=== PATIENT | female | born 1975 | race Caucasian/White ===

== ENCOUNTER 2016-11-13 17:27 | Emergency (ER) | payer OTHER, MEDICAID ==
[~2016-11-13] VITALS: Ht 154.9 cm; Wt 154.2 kg
[~2016-11-13 17:27] MED LIST: AMIT PO; ASPI325T4 PO; CHOL20007 PO; INSUINJ37 SUBCUT; MELO-86 PO; METH10TA6 PO
[2016-11-13 18:03] LABS: Basophils # (auto) 0 uL; DEFINITIVE VIEW TRANSMISSION; Eosinophils # (auto) 0.3 uL; Eosinophils % (auto) 3.4 % (0.0-7.0); Hematocrit 41.3 % (36.0-46.0); Hemoglobin 12.8 g/dL (12.2-16.2); Lymphocytes # (auto) 1.7 uL; Mean Corpuscular Hemoglobin 23.2 pg (28.0-32.0); Mean Corpuscular Hgb Conc. 30.9 g/dL (32.0-36.0); Mean Corpuscular Volume 74.9 fL (80.0-100.0); Mean Platelet Volume 9.6 fL (7.4-10.4); Monocytes # (auto) 0.3 uL; Monocytes % (auto) 3.3 % (0.0-12.0); Neutrophils # (auto) 6.9 uL; Neutrophils % (auto) 75.3 % (37.0-80.0); Platelet Count (auto) 266 10^3/uL (140-450); White Blood Cell 9.2 10^3/uL (4.4-10.8)
[2016-11-13 18:05] LABS: Red Cell Distribution Width 21.3 % (11.6-16.0)
[2016-11-13 18:20] LABS: Albumin 3.4 g/dL (3.4-5.0); BUN/Creatinine Ratio 11.6; Calcium 8.2 mg/dL (8.5-10.1); Magnesium 1.9 mg/dL (1.6-2.6); Potassium 3.8 mmol/L (3.5-5.1)
[2016-11-13 18:23] LABS: Bilirubin, Total 0.3 mg/dL (0.2-1.0); Total Protein 8.7 g/dL (6.4-8.2)
[2016-11-13 18:40] LABS: Anisocytosis Moderate; Hypochromia Slight; Platelet Estimate Adequate
[2016-11-13 18:41] LABS: Stomatocytes Few
[2016-11-13] MEDS ORDERED: cloNIDine HCL 0.1 MG TAB ONE (23:51)
[2016-11-14] MEDS ORDERED: cloNIDine HCL 0.1 MG TAB PO ONE
[2016-11-14 04:20] VITALS: BP 125/88
== END 2016-11-14 04:47 | disposition home or self-care (01) ==
LOC: ER 17:33
DX: R42 Dizziness and giddiness (principal); E11.65 Type 2 diabetes mellitus with hyperglycemia; I50.9 Heart failure, unspecified; K21.9 Gastro-esophageal reflux disease without esophagitis; F41.9 Anxiety disorder, unspecified; E05.90 Thyrotoxicosis, unspecified without thyrotoxic crisis or storm; J44.9 Chronic obstructive pulmonary disease, unspecified; Z79.82 Long term (current) use of aspirin
CPT/HCPCS: 36415; 70450; 71020; 80053; 82962; 83735; 84484; 85025; 85049; 93005

== ENCOUNTER 2018-01-30 13:36 | Emergency (ER) | payer OTHER, MEDICAID ==
[~2018-01-30] VITALS: Ht 154.9 cm; Wt 152.0 kg
[~2018-01-30 13:36] MED LIST changes: -ASPI325T4 PO; +FER325T PO; +HYDR-4069 PO; +LEVO75TA6 PO; -MELO-86 PO; +MELO1TAB56 PO; -METH10TA6 PO; +NITR-52 PO; +OME20T PO
[2018-01-30 14:27] LABS: Basophils # (auto) 0 uL; Basophils % (auto) 0.4 % (0.0-2.0); Eosinophils # (auto) 0.2 uL; Mean Corpuscular Hemoglobin 24.8 pg (28.0-32.0); Monocytes # (auto) 0.5 uL
[2018-01-30 14:30] LABS: Eosinophils % (auto) 1.6 % (0.0-7.0); Hematocrit 42.1 % (36.0-46.0); Hemoglobin 13.1 g/dL (12.2-16.2); Lymphocytes % (auto) 17.3 % (10.0-50.0); Mean Corpuscular Hgb Conc. 31.2 g/dL (32.0-36.0); Mean Corpuscular Volume 79.4 fL (80.0-100.0); Monocytes % (auto) 4.2 % (0.0-12.0); Neutrophils # (auto) 8.7 uL; Neutrophils % (auto) 76.5 % (37.0-80.0); Nucleated Red Blood Cells % 0.2 %; Platelet Count (auto) 257 10^3/uL (140-450); Red Cell Distribution Width 16.5 % (11.8-14.3); White Blood Cell 11.4 10^3/uL (4.4-10.8)
[2018-01-30 14:53] LABS: Alanine Aminotransferase 34 U/L (13-56); Albumin 3.2 g/dL (3.4-5.0); Alkaline Phosphatase 106 U/L (45-117); Anion Gap 4 (5-15); Aspartate Aminotransferase 25 U/L (15-37); BUN/Creatinine Ratio 22.4; Bilirubin, Total 0.4 mg/dL (0.2-1.0); Blood Urea Nitrogen 13 mg/dL (7-18); Calcium 8.5 mg/dL (8.5-10.1); Carbon Dioxide 33 mmol/L (21-32); Chloride 102 mmol/L (98-107); GFR African American 147 mL/min; GFR Non-African American 122 mL/min; Glucose 104 mg/dL (74-106); Potassium 3.7 mmol/L (3.5-5.1); Sodium 139 mmol/L (136-145); Total Protein 8.6 g/dL (6.4-8.2)
[2018-01-30 16:00] VITALS: BP 113/71
[2018-01-30] MEDS ORDERED: NYSTATIN TOPICAL CREAM 15GM TOP ONE (16:45)
[2018-01-30] MEDS ORDERED: FLUCONAZOLE 100 MG TAB PO ONE (16:45)
[2018-01-30 19:34] LABS: Urine Bacteria NONE SEEN /hpf (None Seen); Urine Blood 2+ /uL (Negative); Urine Budding Yeast OCCASIONAL /hpf (None Seen); Urine WBC 95 /hpf (0 - 5)
== END 2018-01-30 17:15 | disposition home or self-care (01) ==
LOC: EDBD 13:36 → ER 13:36
DX: J44.9 Chronic obstructive pulmonary disease, unspecified (principal); R53.1 Weakness; N18.9 Chronic kidney disease, unspecified; E11.22 Type 2 diabetes mellitus with diabetic chronic kidney disease; K21.9 Gastro-esophageal reflux disease without esophagitis; E78.5 Hyperlipidemia, unspecified; I50.9 Heart failure, unspecified; M10.9 Gout, unspecified; E66.01 Morbid (severe) obesity due to excess calories; Z68.44 Body mass index [BMI] 60.0-69.9, adult; F17.210 Nicotine dependence, cigarettes, uncomplicated; Z86.73 Personal history of transient ischemic attack (TIA), and cerebral infarction without residual deficits; Z79.899 Other long term (current) drug therapy
CPT/HCPCS: 36415; 71046; 80053; 81001; 81025; 84484; 85025; 85379; 93005

== ENCOUNTER 2018-12-11 13:19 | Emergency (ER) | payer OTHER, MEDICAID ==
[~2018-12-11] VITALS: Ht 154.9 cm; Wt 154.2 kg
[~2018-12-11 13:19] MED LIST changes: -AMIT PO; -CHOL20007 PO; +FLUO-125 PO; -HYDR-4069 PO; +INSLISPI SC; +LEVO200T7 PO; -LEVO75TA6 PO; -MELO1TAB56 PO; -OME20T PO
[2018-12-11 16:02] VITALS: BP 119/56
[2018-12-11] MEDS ORDERED: cefTRIAXone SOD 1,000 MG VL IM ONE (16:45)
== END 2018-12-11 18:10 | disposition home or self-care (01) ==
LOC: ER 13:22
DX: L03.314 Cellulitis of groin (principal); M25.552 Pain in left hip; I11.0 Hypertensive heart disease with heart failure; I50.9 Heart failure, unspecified; E11.9 Type 2 diabetes mellitus without complications; K21.9 Gastro-esophageal reflux disease without esophagitis; E78.5 Hyperlipidemia, unspecified; Z87.891 Personal history of nicotine dependence; Z86.711 Personal history of pulmonary embolism; Z86.73 Personal history of transient ischemic attack (TIA), and cerebral infarction without residual deficits; Z86.39 Personal history of other endocrine, nutritional and metabolic disease
CPT/HCPCS: 73502; 96372; 99283; J0696

== ENCOUNTER 2018-12-20 11:42 | Inpatient (IN) | payer OTHER, MEDICAID | END 2018-12-22 10:25 | disposition home or self-care (01) | LOC: TELE-CENTR 12-21 11:03 → ER 11:42 → TELE 20:08 | DX: I11.0 Hypertensive heart disease with heart failure (principal); J18.9 Pneumonia, unspecified organism; J96.20 Acute and chronic respiratory failure, unspecified whether with hypoxia or hypercapnia; E44.1 Mild protein-calorie malnutrition; E87.1 Hypo-osmolality and hyponatremia; I50.43 Acute on chronic combined systolic (congestive) and diastolic (congestive) heart failure ==

== ENCOUNTER 2019-01-24 12:40 | Emergency (ER) | payer MEDICARE, MEDICAID ==
[~2019-01-24] VITALS: Ht 154.9 cm; Wt 151.0 kg
[~2019-01-24 12:40] MED LIST changes: +OMEP20TA PO
[2019-01-24 13:45] VITALS: BP 121/52
[2019-01-24] MEDS ORDERED: cefTRIAXone SOD 1,000 MG VL ONE (13:57)
[2019-01-24] MEDS ORDERED: methylPREDNISolone SOD SUCC 125 MG/2 ML VL IM ONE (14:00)
[2019-01-24] MEDS ORDERED: cefTRIAXone W LIDOCAINE 1 GM IM IM ONE (14:00)
== END 2019-01-24 14:56 | disposition home or self-care (01) ==
LOC: ER 13:03
DX: J03.90 Acute tonsillitis, unspecified (principal); J06.9 Acute upper respiratory infection, unspecified; E66.01 Morbid (severe) obesity due to excess calories; K21.9 Gastro-esophageal reflux disease without esophagitis; E11.9 Type 2 diabetes mellitus without complications; E78.5 Hyperlipidemia, unspecified; I10 Essential (primary) hypertension; Z86.711 Personal history of pulmonary embolism; Z68.44 Body mass index [BMI] 60.0-69.9, adult; Z86.73 Personal history of transient ischemic attack (TIA), and cerebral infarction without residual deficits; Z86.39 Personal history of other endocrine, nutritional and metabolic disease; Z87.891 Personal history of nicotine dependence; Z79.4 Long term (current) use of insulin; Z79.899 Other long term (current) drug therapy
CPT/HCPCS: 71046; 96372; 99283; J0696; J2930

== ENCOUNTER 2019-03-01 13:56 | Emergency (ER) | payer MEDICARE, MEDICAID ==
[~2019-03-01] VITALS: Ht 154.9 cm; Wt 146.5 kg
[2019-03-01 14:34] LABS: Basophils # (auto) 0.1 uL; Basophils % (auto) 0.6 % (0.0-2.0); Eosinophils # (auto) 0.1 uL; Lymphocytes # (auto) 1.6 uL; Monocytes # (auto) 0.5 uL
[2019-03-01 14:36] LABS: Eosinophils % (auto) 1.3 % (0.0-7.0); Hematocrit 38.9 % (36.0-46.0); Hemoglobin 12.8 g/dL (12.2-16.2); Lymphocytes % (auto) 14.2 % (10.0-50.0); Mean Corpuscular Hemoglobin 26.8 pg (28.0-32.0); Mean Corpuscular Hgb Conc. 32.8 g/dL (32.0-36.0); Mean Corpuscular Volume 81.7 fL (80.0-100.0); Monocytes % (auto) 4.7 % (0.0-12.0); Neutrophils # (auto) 9.2 uL; Neutrophils % (auto) 79.2 % (37.0-80.0); Platelet Count (auto) 271 10^3/uL (140-450); Red Blood Cells 4.77 10^6/uL (4.0-5.20); Red Cell Distribution Width 16.6 % (11.8-14.3); White Blood Cell 11.6 10^3/uL (4.4-10.8)
[2019-03-01 14:53] LABS: BUN/Creatinine Ratio 18.2; Calcium 8.9 mg/dL (8.5-10.1); Potassium 3.5 mmol/L (3.5-5.1)
[2019-03-01 14:56] LABS: Bilirubin, Total 0.2 mg/dL (0.2-1.0); Total Protein 8.2 g/dL (6.4-8.2)
[2019-03-01 15:17] VITALS: BP 121/66
== END 2019-03-01 16:08 | disposition home or self-care (01) ==
LOC: ER 13:56
DX: J20.9 Acute bronchitis, unspecified (principal); K21.9 Gastro-esophageal reflux disease without esophagitis; E11.9 Type 2 diabetes mellitus without complications; E78.5 Hyperlipidemia, unspecified; I10 Essential (primary) hypertension; E07.9 Disorder of thyroid, unspecified; Z86.73 Personal history of transient ischemic attack (TIA), and cerebral infarction without residual deficits; Z86.711 Personal history of pulmonary embolism
CPT/HCPCS: 36415; 71046; 80053; 84484; 85025; 93005

== ENCOUNTER 2019-08-12 11:44 | Emergency (ER) | payer MEDICARE, MEDICAID, OTHER ==
[~2019-08-12] VITALS: Ht 154.9 cm; Wt 140.2 kg
[2019-08-12] MEDS ORDERED: HYDROcodone-ACET 10/325MG TAB PO ONE (14:15)
[2019-08-12 15:41] VITALS: BP 138/74
== END 2019-08-12 16:38 | disposition home or self-care (01) ==
LOC: ER 11:44
DX: S46.912A Strain of unspecified muscle, fascia and tendon at shoulder and upper arm level, left arm, initial encounter (principal); M54.5 Low back pain; E11.9 Type 2 diabetes mellitus without complications; K21.9 Gastro-esophageal reflux disease without esophagitis; E78.5 Hyperlipidemia, unspecified; E07.9 Disorder of thyroid, unspecified; Z86.711 Personal history of pulmonary embolism; Z79.4 Long term (current) use of insulin; Z79.899 Other long term (current) drug therapy; Z86.73 Personal history of transient ischemic attack (TIA), and cerebral infarction without residual deficits; W18.39XA Other fall on same level, initial encounter; Y93.89 Activity, other specified; Y99.8 Other external cause status; Y92.89 Other specified places as the place of occurrence of the external cause
CPT/HCPCS: 73030; 93005

== ENCOUNTER 2020-02-13 12:14 | Inpatient (IN) | payer OTHER, MEDICAID ==
[~2020-02-13] VITALS: Ht 154.9 cm; Wt 148.5 kg
[2020-02-13 12:56] LABS: Basophils # (auto) 0.1 10 ^3/uL (0-0.2); Eosinophils # (auto) 0.1 10 ^3/uL (0-0.8); Hematocrit 38.7 % (36.0-46.0); Monocytes # (auto) 0.5 10 ^3/uL (0-1.3); Monocytes % (auto) 4.9 % (0.0-12.0)
[2020-02-13 12:58] LABS: Eosinophils % (auto) 1.2 % (0.0-7.0); Hemoglobin 12.7 g/dL (12.2-16.2); Lymphocytes # (auto) 1.6 10 ^3/uL (0.4-5.4); Lymphocytes % (auto) 14.4 % (10.0-50.0); Mean Corpuscular Hemoglobin 26.7 pg (28.0-32.0); Mean Corpuscular Hgb Conc. 32.9 g/dL (32.0-36.0); Mean Corpuscular Volume 81.1 fL (80.0-100.0); Neutrophils # (auto) 8.5 10 ^3/uL (1.6-8.6); Neutrophils % (auto) 78.5 % (37.0-80.0); Platelet Count (auto) 238 10^3/uL (140-450); Red Blood Cells 4.76 10^6/uL (4.0-5.20); Red Cell Distribution Width 16.1 % (11.8-14.3); White Blood Cell 10.9 10^3/uL (4.4-10.8)
[2020-02-13] MEDS ORDERED: ONDANSETRON HCL 4 MG/2 ML VIAL IV ONE (13:00)
[2020-02-13] MEDS ORDERED: ASPirin 81 mg TAB PO ONE (13:00)
[2020-02-13] MEDS ORDERED: MORPHINE SULF INJ 2 MG/ML SYRINGE 1ML IV ONE (13:00)
[2020-02-13 13:13] LABS: INR 1.01 (0.9-1.15); Partial Thromboplastin Time 27.5 sec (23.64-32.05)
[2020-02-13 13:14] LABS: Albumin 3.1 g/dL (3.4-5.0); Anion Gap 7 (5-15); Blood Urea Nitrogen 15 mg/dL (7-18); Calcium 8.4 mg/dL (8.5-10.1); Carbon Dioxide 29 mmol/L (21-32); Chloride 101 mmol/L (98-107); Glucose 144 mg/dL (74-106); Potassium 3.6 mmol/L (3.5-5.1); Sodium 137 mmol/L (136-145)
[2020-02-13 13:20] LABS: Alanine Aminotransferase 24 U/L (13-56); Alkaline Phosphatase 85 U/L (45-117); Aspartate Aminotransferase 18 U/L (15-37); BUN/Creatinine Ratio 22.7; Bilirubin, Total 0.3 mg/dL (0.2-1.0); GFR African American 126 mL/min; GFR Non-African American 104 mL/min; Total Protein 8.1 g/dL (6.4-8.2)
[2020-02-13] MEDS ORDERED: KETOROLAC TROMETH 15 mg/ml 1ML VL IV ONE (15:00)
[2020-02-13] MEDS ORDERED: KETOROLAC TROMETH 30 MG/ML 1ML VIAL ONE (16:15)
[2020-02-13 16:49] LABS: Urine Bacteria FEW /hpf (None Seen); Urine Blood 1+ /uL (Negative); Urine Mucus FEW (None Seen); Urine Specific Gravity 1.021 (1.001-1.035); Urine WBC 6 /hpf (0 - 5)
[2020-02-13] MEDS ORDERED: MORPHINE SULFATE 4 MG/ML SYR/VIAL IV PRN (17:45)
[2020-02-13] MEDS ORDERED: ONDANSETRON HCL 4 MG/2 ML VIAL IV PRN (17:45)
[2020-02-13] MEDS ORDERED: NITROGLYCERIN 0.4 MG SL TAB SL PRN ×2 (17:45)
[2020-02-13] MEDS ORDERED: LORazepam 0.5 MG TAB PO PRN (17:45)
[2020-02-13] MEDS ORDERED: cefTRIAXone 1GM/50ML D5W 50 ML IV ONE (18:00)
[2020-02-13] MEDS ORDERED: DEXTROSE (50%) 50ML SYRG IV PRN (18:00)
[2020-02-13] MEDS: SODIUM CHLORIDE 0.9% 1,000 ML IV SCH (18:17)
[2020-02-13] MEDS ORDERED: HEPARIN DRIP/D5W 100UNITS/ML 250 ML IV SCH (18:39)
[2020-02-13] MEDS ORDERED: HEPARIN SODIUM (PORCINE) 5000 UNITS/ML 1ML VIAL IV ONE ×2 (18:45→19:00)
[2020-02-13 19:32] LABS: Basophils # (auto) 0 10 ^3/uL (0-0.2); Lymphocytes # (auto) 2.1 10 ^3/uL (0.4-5.4); Neutrophils # (auto) 7.3 10 ^3/uL (1.6-8.6); Platelet Count (auto) 245 10^3/uL (140-450); White Blood Cell 10.1 10^3/uL (4.4-10.8)
[2020-02-13 19:34] LABS: Basophils % (auto) 0.5 % (0.0-2.0); Eosinophils # (auto) 0.1 10 ^3/uL (0-0.8); Eosinophils % (auto) 1.4 % (0.0-7.0); Hematocrit 38.4 % (36.0-46.0); Hemoglobin 12.2 g/dL (12.2-16.2); Lymphocytes % (auto) 20.8 % (10.0-50.0); Mean Corpuscular Hemoglobin 25.9 pg (28.0-32.0); Mean Corpuscular Hgb Conc. 31.9 g/dL (32.0-36.0); Mean Corpuscular Volume 81.3 fL (80.0-100.0); Monocytes # (auto) 0.5 10 ^3/uL (0-1.3); Monocytes % (auto) 5.2 % (0.0-12.0); Neutrophils % (auto) 72.1 % (37.0-80.0); Nucleated Red Blood Cells % 0.2 %; Red Blood Cells 4.72 10^6/uL (4.0-5.20); Red Cell Distribution Width 16.2 % (11.8-14.3)
[2020-02-13] MEDS: HEPARIN DRIP/D5W 100UNITS/ML 250 ML IV SCH (19:35)
[2020-02-13 19:48] LABS: INR 1.01 (0.9-1.15); Partial Thromboplastin Time 28.2 sec (23.64-32.05)
[2020-02-13] MEDS: InsuLIN REG 1unit/0.01ml Soln (100units/ml) SC SCH (20:00)
[2020-02-13 20:35] VITALS: BP 124/67
[2020-02-13] MEDS: FERROUS SULFATE 325 MG TAB PO SCH (21:15)
[2020-02-13] MEDS: METOPROLOL TARTRATE 25 MG TAB PO SCH (21:17)
[2020-02-13] MEDS: ACCU-CHEK COMFORT CURVE STRIP VI SCH (21:17)
[2020-02-13 22:00] VITALS: BP 124/67
[2020-02-13] MEDS ORDERED: ATORVASTATIN 20 MG TAB PO SCH (22:00)
[2020-02-13] MEDS: MORPHINE SULF INJ 2 MG/ML SYRINGE 1ML IV PRN (22:15)
[2020-02-13] MEDS ORDERED: BUPR100T14 PO (22:35)
[2020-02-13] MEDS ORDERED: ALBUAER3 IN (22:35)
[2020-02-13] MEDS: INSULIN LANTUS (GLARGINE) 1 /0.01ml (100units/ml) SC SCH (22:42)
[2020-02-13 22:45] VITALS: BP 124/67
[2020-02-14] MEDS: ACCU-CHEK COMFORT CURVE STRIP VI SCH ×6 (00:35→20:21)
[2020-02-14 01:30] LABS: INR 0.99 (0.9-1.15); Partial Thromboplastin Time 31.3 sec (23.64-32.05)
[2020-02-14] MEDS: HEPARIN DRIP/D5W 100UNITS/ML 250 ML IV SCH (01:57)
[2020-02-14] MEDS ORDERED: HEPARIN SODIUM (PORCINE) 5000 UNITS/ML 1ML VIAL IV ONE (02:00)
[2020-02-14 04:00] VITALS: BP 91/42
[2020-02-14] MEDS: InsuLIN REG 1unit/0.01ml Soln (100units/ml) SC SCH ×6 (04:00→20:00)
[2020-02-14] MEDS: INSULIN LISPRO (HUMAN) 100 UNITS/ML ML SC SCH ×4 (04:09→20:04)
[2020-02-14 05:38] LABS: Eosinophils # (auto) 0.2 10 ^3/uL (0-0.8); Monocytes # (auto) 0.5 10 ^3/uL (0-1.3); Neutrophils # (auto) 5.9 10 ^3/uL (1.6-8.6)
[2020-02-14 05:42] LABS: Basophils # (auto) 0.1 10 ^3/uL (0-0.2); Basophils % (auto) 0.7 % (0.0-2.0); Eosinophils % (auto) 2.3 % (0.0-7.0); Hematocrit 36.7 % (36.0-46.0); Hemoglobin 12.1 g/dL (12.2-16.2); Lymphocytes # (auto) 2.3 10 ^3/uL (0.4-5.4); Lymphocytes % (auto) 25.8 % (10.0-50.0); Mean Corpuscular Hemoglobin 26.9 pg (28.0-32.0); Mean Corpuscular Volume 81.5 fL (80.0-100.0); Monocytes % (auto) 5.4 % (0.0-12.0); Neutrophils % (auto) 65.8 % (37.0-80.0); Nucleated Red Blood Cells % 0.2 %; Platelet Count (auto) 229 10^3/uL (140-450); Red Cell Distribution Width 16.2 % (11.8-14.3); White Blood Cell 8.9 10^3/uL (4.4-10.8)
[2020-02-14 05:54] LABS: Albumin 2.8 g/dL (3.4-5.0); Calcium 7.8 mg/dL (8.5-10.1); Potassium 3.9 mmol/L (3.5-5.1)
[2020-02-14 05:55] LABS: % Iron Saturation 12.3 % (15-50)
[2020-02-14 06:03] LABS: BUN/Creatinine Ratio 22.5; Bilirubin, Total 0.2 mg/dL (0.2-1.0); CRP High Sensitivity 2.93 mg/dL (< 0.3); Phosphorus 3.6 mg/dL (2.5-4.90); Total Protein 7.4 g/dL (6.4-8.2)
[2020-02-14 06:05] LABS: Ferritin 16.5 ng/mL (10-322); Folate (Folic Acid) 11.27 ng/mL (5.38-24)
[2020-02-14] MEDS: SODIUM CHLORIDE 0.9% 1,000 ML IV SCH ×2 (06:07→21:49)
[2020-02-14] MEDS: LEVOTHYROXINE SODIUM 100 MCG TAB PO SCH (06:07)
[2020-02-14] MEDS: HYDROcodone-ACET 5/325MG TAB PO PRN ×3 (06:08→20:21)
[2020-02-14] MEDS: ADENOSINE 120 MG in GIVE UN-DILUTED 0 ML IV STA ×2 (08:33→10:58)
[2020-02-14 09:00] VITALS: BP 111/67
[2020-02-14] MEDS: cefTRIAXone 1GM/50ML D5W 50 ML IV SCH (09:01)
[2020-02-14 09:02] LABS: INR 1.02 (0.9-1.15); Partial Thromboplastin Time 37.8 sec (23.64-32.05)
[2020-02-14] MEDS: MORPHINE SULF INJ 2 MG/ML SYRINGE 1ML IV PRN (09:27)
[2020-02-14] MEDS ORDERED: ENOXAPARIN SOD 40 MG/0.4 ML SYRINGE SC SCH (10:00)
[2020-02-14] MEDS ORDERED: CLOPIDOGREL BISULFATE 75 MG TAB PO SCH (10:00)
[2020-02-14 13:00] VITALS: BP 107/46
[2020-02-14] MEDS: DOCUSATE SOD 100 MG CAP PO SCH (13:19)
[2020-02-14] MEDS: FERROUS SULFATE 325 MG TAB PO SCH ×2 (13:19→21:52)
[2020-02-14] MEDS: FLUoxetine HCL 20 MG CAP PO SCH (13:19)
[2020-02-14] MEDS: LISINOPRIL 5 MG TAB PO SCH (13:20)
[2020-02-14] MEDS: ASPirin 81 mg TAB PO SCH (13:20)
[2020-02-14] MEDS: METOPROLOL TARTRATE 25 MG TAB PO SCH ×2 (13:20→21:47)
[2020-02-14] MEDS ORDERED: OPTISON 3ml Vial for INJ IV ONE (14:01)
[2020-02-14] MEDS ORDERED: PERCOT PO (14:42)
[2020-02-14] MEDS ORDERED: IBUP600T27 PO (14:43)
[2020-02-14] MEDS ORDERED: OXYC325T14 PO (14:47)
[2020-02-14 17:00] VITALS: BP 124/67
[2020-02-14] MEDS: INSULIN LANTUS (GLARGINE) 1 /0.01ml (100units/ml) SC SCH (20:03)
[2020-02-14 21:47] VITALS: BP 102/45
[2020-02-15] MEDS ORDERED: DEXTROSE (50%) 50ML SYRG IV PRN (01:15)
[2020-02-15] MEDS: HYDROcodone-ACET 5/325MG TAB PO PRN (05:00)
[2020-02-15 05:14] VITALS: BP 97/44
[2020-02-15] MEDS ORDERED: ALBUTEROL SULF 2.5 MG/0.5ML(0.5%) NEB SOLN NEB PRN (05:15)
[2020-02-15] MEDS: ACCU-CHEK COMFORT CURVE STRIP VI SCH ×2 (05:38→11:43)
[2020-02-15] MEDS: cefTRIAXone 1GM/50ML D5W 50 ML IV SCH (05:58)
[2020-02-15] MEDS: LEVOTHYROXINE SODIUM 100 MCG TAB PO SCH (05:58)
[2020-02-15] MEDS: InsuLIN REG 1unit/0.01ml Soln (100units/ml) SC SCH ×2 (06:10→11:30)
[2020-02-15 09:00] VITALS: BP_SYST 121; BP_SYST 130; BP_DIAS 64; BP_DIAS 69
[2020-02-15 09:34] VITALS: BP 97/44
[2020-02-15] MEDS: ASPirin 81 mg TAB PO SCH (09:47)
[2020-02-15] MEDS: DOCUSATE SOD 100 MG CAP PO SCH (09:47)
[2020-02-15] MEDS: FERROUS SULFATE 325 MG TAB PO SCH (09:47)
[2020-02-15] MEDS: FLUoxetine HCL 20 MG CAP PO SCH (09:48)
[2020-02-15] MEDS: LISINOPRIL 5 MG TAB PO SCH (09:50)
[2020-02-15 13:01] VITALS: BP 121/77
== END 2020-02-15 14:59 | disposition home or self-care (01) | DRG 313 ==
LOC: ER 12:14 → TELE 12:15 → TELE-WESTW 20:40
PROVIDERS: ADMIT Hospitalist; ATTEND Internal Medicine
DX: R07.89 Other chest pain (principal); R65.10 Systemic inflammatory response syndrome (SIRS) of non-infectious origin without acute organ dysfunction; Z68.44 Body mass index [BMI] 60.0-69.9, adult; F32.9 Major depressive disorder, single episode, unspecified; E66.01 Morbid (severe) obesity due to excess calories; D63.8 Anemia in other chronic diseases classified elsewhere; K21.9 Gastro-esophageal reflux disease without esophagitis; E03.9 Hypothyroidism, unspecified; I27.20 Pulmonary hypertension, unspecified; M19.90 Unspecified osteoarthritis, unspecified site; M10.9 Gout, unspecified; G47.30 Sleep apnea, unspecified; E11.65 Type 2 diabetes mellitus with hyperglycemia; D72.829 Elevated white blood cell count, unspecified; N18.9 Chronic kidney disease, unspecified; E11.22 Type 2 diabetes mellitus with diabetic chronic kidney disease; E05.90 Thyrotoxicosis, unspecified without thyrotoxic crisis or storm; Z86.711 Personal history of pulmonary embolism; Z79.899 Other long term (current) drug therapy; Z79.4 Long term (current) use of insulin; Z85.42 Personal history of malignant neoplasm of other parts of uterus; Z81.8 Family history of other mental and behavioral disorders; Z83.6 Family history of other diseases of the respiratory system; Z83.3 Family history of diabetes mellitus; Z79.51 Long term (current) use of inhaled steroids
CPT/HCPCS: 36415; 71045; 78452; 80053; 80061; 81001; 82607; 82728; 82746; 82962; 83036; 83540; 83550; 83735; 83880; 84100; 84484; 85025; 85045; 85379; 85610; 85652; 85730; 86141; 87086; 93017; 93306; 93970; G0378; J0153; J0696; J1885; J2405; Q9956

== ENCOUNTER 2020-11-10 13:14 | Emergency (ER) | payer OTHER, MEDICAID ==
[~2020-11-10] VITALS: Ht 154.9 cm; Wt 147.4 kg
[~2020-11-10 13:14] MED LIST changes: +ALBUAER3 IN; +BUPR100T14 PO; -FER325T PO; +IBUP600T27 PO; -INSLISPI SC; -INSUINJ37 SUBCUT; -NITR-52 PO; -OMEP20TA PO; +OXYC325T14 PO
[2020-11-10] MEDS ORDERED: KETOROLAC TROMETH 30 MG/ML 1ML VIAL IV ONE (13:30)
[2020-11-10 14:17] LABS: Basophils # (auto) 0.1 10 ^3/uL (0-0.2); Basophils % (auto) 0.7 % (0.0-2.0); Eosinophils # (auto) 0.2 10 ^3/uL (0-0.8); Eosinophils % (auto) 1.5 % (0.0-7.0); Hematocrit 38.9 % (36.0-46.0); Hemoglobin 13.1 g/dL (12.2-16.2); Lymphocytes # (auto) 1.6 10 ^3/uL (0.4-5.4); Lymphocytes % (auto) 16.2 % (10.0-50.0); Mean Corpuscular Hemoglobin 27.6 pg (28.0-32.0); Mean Corpuscular Hgb Conc. 33.6 g/dL (32.0-36.0); Mean Corpuscular Volume 82.1 fL (80.0-100.0); Monocytes # (auto) 0.5 10 ^3/uL (0-1.3); Monocytes % (auto) 5.5 % (0.0-12.0); Neutrophils # (auto) 7.6 10 ^3/uL (1.6-8.6); Neutrophils % (auto) 76.1 % (37.0-80.0); Nucleated Red Blood Cells % 0.1 %; Platelet Count (auto) 238 10^3/uL (140-450); Red Blood Cells 4.74 10^6/uL (4.0-5.20); Red Cell Distribution Width 15.8 % (11.8-14.3); White Blood Cell 9.9 10^3/uL (4.4-10.8)
[2020-11-10 14:49] LABS: Albumin 3.2 g/dL (3.4-5.0); Calcium 8.5 mg/dL (8.5-10.1); Potassium 3.7 mmol/L (3.5-5.1)
[2020-11-10 14:52] LABS: BUN/Creatinine Ratio 15.4; Bilirubin, Total 0.4 mg/dL (0.2-1.0); Total Protein 8.2 g/dL (6.4-8.2)
[2020-11-10 15:45] LABS: Urine Bacteria FEW /hpf (None Seen); Urine Blood 2+ /uL (Negative); Urine Specific Gravity 1.004 (1.001-1.035); Urine WBC 14 /hpf (0 - 5)
[2020-11-10 16:50] VITALS: BP 147/58
== END 2020-11-10 17:03 | disposition home or self-care (01) ==
LOC: ER 13:14
DX: N39.0 Urinary tract infection, site not specified (principal); E11.9 Type 2 diabetes mellitus without complications; K21.9 Gastro-esophageal reflux disease without esophagitis; E78.5 Hyperlipidemia, unspecified; I10 Essential (primary) hypertension; Z87.891 Personal history of nicotine dependence
CPT/HCPCS: 36415; 74176; 80053; 81001; 83690; 85025; 96374; 99284; J1885

== ENCOUNTER 2021-03-17 02:39 | Inpatient (IN) | payer OTHER, MEDICAID ==
[~2021-03-17] VITALS: Ht 157.5 cm; Wt 159.0 kg
[2021-03-17 03:57] LABS: Urine WBC None Seen /hpf (0 - 5)
[2021-03-17 04:03] LABS: Basophils # (auto) 0.1 10 ^3/uL (0-0.2); Basophils % (auto) 0.8 % (0.0-2.0); Eosinophils # (auto) 0.2 10 ^3/uL (0-0.8); Eosinophils % (auto) 2.1 % (0.0-7.0); Hematocrit 39.4 % (36.0-46.0); Hemoglobin 13.2 g/dL (12.2-16.2); Lymphocytes # (auto) 2.1 10 ^3/uL (0.4-5.4); Lymphocytes % (auto) 17.6 % (10.0-50.0); Mean Corpuscular Hemoglobin 27.9 pg (28.0-32.0); Mean Corpuscular Hgb Conc. 33.4 g/dL (32.0-36.0); Mean Corpuscular Volume 83.4 fL (80.0-100.0); Monocytes # (auto) 0.6 10 ^3/uL (0-1.3); Monocytes % (auto) 5.2 % (0.0-12.0); Neutrophils # (auto) 8.7 10 ^3/uL (1.6-8.6); Neutrophils % (auto) 74.3 % (37.0-80.0); Nucleated Red Blood Cells % 0.1 %; Platelet Count (auto) 249 10^3/uL (140-450); Red Blood Cells 4.73 10^6/uL (4.0-5.20); Red Cell Distribution Width 15.7 % (11.8-14.3); White Blood Cell 11.6 10^3/uL (4.4-10.8)
[2021-03-17 04:08] LABS: Urine Bacteria NONE SEEN /hpf (None Seen); Urine Blood TRACE /uL (Negative); Urine Specific Gravity 1.004 (1.001-1.035)
[2021-03-17 04:10] LABS: Albumin 3.1 g/dL (3.4-5.0); Anion Gap 7 (5-15); Blood Urea Nitrogen 13 mg/dL (7-18); Calcium 9.6 mg/dL (8.5-10.1); Carbon Dioxide 29 mmol/L (21-32); Chloride 99 mmol/L (98-107); Glucose 143 mg/dL (74-106); Magnesium 1.7 mg/dL (1.6-2.6); Potassium 3.8 mmol/L (3.5-5.1); Sodium 135 mmol/L (136-145)
[2021-03-17 04:16] LABS: Alanine Aminotransferase 47 U/L (13-56); Alkaline Phosphatase 79 U/L (45-117); Aspartate Aminotransferase 27 U/L (15-37); Bilirubin, Total 0.4 mg/dL (0.2-1.0); GFR African American 134 mL/min; GFR Non-African American 111 mL/min; Total Protein 7.9 g/dL (6.4-8.2)
[2021-03-17 04:51] LABS: INR 1.01 (0.9-1.15)
[2021-03-17] MEDS ORDERED: IOHEXOL 350 MG/ML 100ML IJ ONE (06:08)
[2021-03-17] MEDS ORDERED: ONDANSETRON HCL 4 MG/2 ML VIAL IV ONE (10:30)
[2021-03-17] MEDS ORDERED: MORPHINE SULF INJ 2 MG/ML SYRINGE 1ML IV PRN (11:00)
[2021-03-17] MEDS ORDERED: NITROGLYCERIN 0.4 MG SL TAB SL PRN (11:00)
[2021-03-17] MEDS ORDERED: ACETAMINOPHEN 500 MG TAB PO PRN (11:00)
[2021-03-17] MEDS ORDERED: DOCUSATE SOD 100 MG CAP PO PRN (11:00)
[2021-03-17] MEDS ORDERED: ONDANSETRON HCL 4 MG/2 ML VIAL IV PRN (11:00)
[2021-03-17] MEDS: HYDROcodone-ACET 5/325MG TAB PO PRN (18:15)
[2021-03-17 20:39] VITALS: BP 124/60
[2021-03-17 22:00] VITALS: BP_SYST 124; BP_SYST 146; BP_DIAS 60; BP_DIAS 80
[2021-03-17] MEDS ORDERED: DEXTROSE (50%) 50ML SYRG IV PRN (22:45)
[2021-03-17] MEDS ORDERED: LEVO175T66 PO (22:57)
[2021-03-18] MEDS: HYDROcodone-ACET 5/325MG TAB PO PRN ×3 (00:53→18:13)
[2021-03-18 05:00] VITALS: BP 126/71
[2021-03-18] MEDS: LEVOTHYROXINE SODIUM 100 MCG TAB PO SCH (06:10)
[2021-03-18] MEDS: ACCU-CHEK COMFORT CURVE STRIP VI SCH ×4 (06:10→22:15)
[2021-03-18] MEDS: InsuLIN REG 1unit/0.01ml Soln (100units/ml) SC SCH ×4 (06:17→22:19)
[2021-03-18 09:00] VITALS: BP 116/55
[2021-03-18] MEDS: FAMOTIDINE 20 MG TAB PO SCH (09:35)
[2021-03-18] MEDS: FLUoxetine HCL 20 MG CAP PO SCH (09:36)
[2021-03-18] MEDS: MORPHINE SULF INJ 2 MG/ML SYRINGE 1ML IV PRN ×2 (09:37→15:48)
[2021-03-18 13:00] VITALS: BP 105/61
[2021-03-18 16:38] VITALS: BP 128/74
[2021-03-18 16:44] VITALS: BP 133/78
[2021-03-18] MEDS ORDERED: IBUP800T27 PO (18:04)
[2021-03-18] MEDS ORDERED: CHOL50007 PO (18:06)
[2021-03-18] MEDS ORDERED: ERGO1CAP23 PO (18:09)
[2021-03-18 21:55] VITALS: BP 111/58
[2021-03-19] MEDS: HYDROcodone-ACET 5/325MG TAB PO PRN ×3 (05:27→17:18)
[2021-03-19 05:39] VITALS: BP 116/61
[2021-03-19] MEDS: LEVOTHYROXINE SODIUM 100 MCG TAB PO SCH (06:37)
[2021-03-19 06:46] LABS: Basophils # (auto) 0.1 10 ^3/uL (0-0.2); Basophils % (auto) 0.5 % (0.0-2.0); Eosinophils # (auto) 0.3 10 ^3/uL (0-0.8); Eosinophils % (auto) 2.4 % (0.0-7.0); Hematocrit 37.3 % (36.0-46.0); Hemoglobin 12.8 g/dL (12.2-16.2); Lymphocytes # (auto) 1.8 10 ^3/uL (0.4-5.4); Lymphocytes % (auto) 16.9 % (10.0-50.0); Mean Corpuscular Hemoglobin 28.9 pg (28.0-32.0); Mean Corpuscular Hgb Conc. 34.3 g/dL (32.0-36.0); Mean Corpuscular Volume 84.3 fL (80.0-100.0); Monocytes # (auto) 0.6 10 ^3/uL (0-1.3); Monocytes % (auto) 5.6 % (0.0-12.0); Neutrophils # (auto) 7.8 10 ^3/uL (1.6-8.6); Neutrophils % (auto) 74.6 % (37.0-80.0); Nucleated Red Blood Cells % 0.2 %; Platelet Count (auto) 232 10^3/uL (140-450); Red Blood Cells 4.42 10^6/uL (4.0-5.20); Red Cell Distribution Width 15.1 % (11.8-14.3); White Blood Cell 10.5 10^3/uL (4.4-10.8)
[2021-03-19] MEDS: ACCU-CHEK COMFORT CURVE STRIP VI SCH ×4 (06:47→21:22)
[2021-03-19] MEDS: InsuLIN REG 1unit/0.01ml Soln (100units/ml) SC SCH ×4 (06:48→21:31)
[2021-03-19 06:53] LABS: Potassium 3.8 mmol/L (3.5-5.1)
[2021-03-19 07:03] LABS: BUN/Creatinine Ratio 20.3; Bilirubin, Total 0.4 mg/dL (0.2-1.0); Calcium 8.2 mg/dL (8.5-10.1); Magnesium 2.1 mg/dL (1.6-2.6); Total Protein 7.7 g/dL (6.4-8.2)
[2021-03-19] MEDS: FLUoxetine HCL 20 MG CAP PO SCH (08:59)
[2021-03-19] MEDS: FAMOTIDINE 20 MG TAB PO SCH (08:59)
[2021-03-19 09:00] VITALS: BP 100/50
[2021-03-19 13:00] VITALS: BP 111/58
[2021-03-19 16:36] VITALS: BP 107/60
[2021-03-19] MEDS: ALBUTEROL SULF 2.5 MG/0.5ML(0.5%) NEB SOLN NEB PRN (17:14)
[2021-03-19] MEDS: MORPHINE SULF INJ 2 MG/ML SYRINGE 1ML IV PRN (21:48)
[2021-03-19 22:00] VITALS: BP 124/74
[2021-03-20] MEDS: HYDROcodone-ACET 5/325MG TAB PO PRN ×2 (03:38→09:53)
[2021-03-20] MEDS: ALBUTEROL SULF 2.5 MG/0.5ML(0.5%) NEB SOLN NEB PRN (03:50)
[2021-03-20 05:00] VITALS: BP 108/60
[2021-03-20] MEDS: ACCU-CHEK COMFORT CURVE STRIP VI SCH ×2 (06:29→12:00)
[2021-03-20] MEDS: InsuLIN REG 1unit/0.01ml Soln (100units/ml) SC SCH ×2 (06:30→11:30)
[2021-03-20] MEDS ORDERED: LEVOTHYROXINE SODIUM 100 MCG TAB PO SCH (07:00)
[2021-03-20] MEDS: FLUoxetine HCL 20 MG CAP PO SCH (09:51)
[2021-03-20] MEDS: FAMOTIDINE 20 MG TAB PO SCH (09:51)
[2021-03-20] MEDS ORDERED: LEVO200T PO (12:12)
[2021-03-20] MEDS ORDERED: METH4PAK PO (12:12)
[2021-03-20] MEDS ORDERED: ASPI-378 PO (12:12)
[2021-03-20] MEDS ORDERED: INSLANTI SC (12:26)
== END 2021-03-20 14:08 | disposition home or self-care (01) | DRG 190 ==
LOC: EDBD 02:39 → ER 02:46 → TELE 10:58 → TELE-WESTW 20:29
PROVIDERS: ADMIT Nurse Practitioner Acute Care; ATTEND Internal Medicine
PROC: 5A09357 Assistance with Respiratory Ventilation, Less than 24 Consecutive Hours, Continuous Positive Airway Pressure (ICD-10-PCS; principal; 2021-03-18)
PROC: 5A09357 Assistance with Respiratory Ventilation, Less than 24 Consecutive Hours, Continuous Positive Airway Pressure (ICD-10-PCS; 2021-03-19)
DX: J44.1 Chronic obstructive pulmonary disease with (acute) exacerbation (principal); I50.33 Acute on chronic diastolic (congestive) heart failure; R65.10 Systemic inflammatory response syndrome (SIRS) of non-infectious origin without acute organ dysfunction; E66.2 Morbid (severe) obesity with alveolar hypoventilation; Z68.43 Body mass index [BMI] 50.0-59.9, adult; J45.901 Unspecified asthma with (acute) exacerbation; J96.11 Chronic respiratory failure with hypoxia; I11.0 Hypertensive heart disease with heart failure; F32.9 Major depressive disorder, single episode, unspecified; F41.9 Anxiety disorder, unspecified; R07.89 Other chest pain; Z20.822 Contact with and (suspected) exposure to COVID-19; E03.9 Hypothyroidism, unspecified; E11.9 Type 2 diabetes mellitus without complications; Z79.4 Long term (current) use of insulin; Z81.8 Family history of other mental and behavioral disorders; Z82.49 Family history of ischemic heart disease and other diseases of the circulatory system; Z82.5 Family history of asthma and other chronic lower respiratory diseases; Z83.3 Family history of diabetes mellitus; Z85.42 Personal history of malignant neoplasm of other parts of uterus; Z85.850 Personal history of malignant neoplasm of thyroid; Z86.711 Personal history of pulmonary embolism; Z90.710 Acquired absence of both cervix and uterus; Z95.828 Presence of other vascular implants and grafts; Z98.84 Bariatric surgery status
CPT/HCPCS: 36415; 71045; 71275; 76536; 80053; 81001; 82962; 83036; 83735; 83880; 84443; 84484; 85025; 85610; 85730; 87426; 93005; 93306; 94640; 94660; 96374; G0378; J1815; J2405

== ENCOUNTER 2021-04-30 08:28 | Emergency (ER) | payer OTHER, MEDICAID ==
[~2021-04-30] VITALS: Ht 162.6 cm; Wt 158.8 kg
[~2021-04-30 08:28] MED LIST changes: +ASPI-378 PO; -BUPR100T14 PO; +ERGO1CAP23 PO; -IBUP600T27 PO; +IBUP800T27 PO; +INSLANTI SC; +LEVO200T PO; -LEVO200T7 PO; +METH4PAK PO
[2021-04-30] MEDS ORDERED: IOHEXOL 300 MG/ML 100ML BOTTLE IJ ONE ×2 (08:54→09:41)
[2021-04-30] MEDS ORDERED: SODIUM CHLORIDE 0.9% 1,000 ML IV ONE (09:00)
[2021-04-30 09:11] LABS: Basophils # (auto) 0.1 10 ^3/uL (0-0.2); Basophils % (auto) 0.6 % (0.0-2.0); Eosinophils # (auto) 0.2 10 ^3/uL (0-0.8); Eosinophils % (auto) 1.1 % (0.0-7.0); Hematocrit 42.9 % (36.0-46.0); Hemoglobin 14.3 g/dL (12.2-16.2); Lymphocytes # (auto) 1.7 10 ^3/uL (0.4-5.4); Lymphocytes % (auto) 10.6 % (10.0-50.0); Mean Corpuscular Hemoglobin 27.5 pg (28.0-32.0); Mean Corpuscular Hgb Conc. 33.3 g/dL (32.0-36.0); Mean Corpuscular Volume 82.4 fL (80.0-100.0); Monocytes # (auto) 0.4 10 ^3/uL (0-1.3); Monocytes % (auto) 2.6 % (0.0-12.0); Neutrophils # (auto) 13.9 10 ^3/uL (1.6-8.6); Neutrophils % (auto) 85.1 % (37.0-80.0); Platelet Count (auto) 295 10^3/uL (140-450); Red Cell Distribution Width 15.8 % (11.8-14.3); White Blood Cell 16.3 10^3/uL (4.4-10.8)
[2021-04-30 09:26] LABS: Albumin 3.7 g/dL (3.4-5.0); Calcium 9.1 mg/dL (8.5-10.1); Potassium 3.5 mmol/L (3.5-5.1)
[2021-04-30 09:29] LABS: BUN/Creatinine Ratio 25.3; Bilirubin, Total 0.4 mg/dL (0.2-1.0); Total Protein 8.6 g/dL (6.4-8.2)
[2021-04-30] MEDS ORDERED: KETOROLAC TROMETH 30 MG/ML 1ML VIAL IV ONE (10:00)
[2021-04-30 10:56] VITALS: BP 103/63
[2021-04-30] MEDS ORDERED: cefTRIAXone 1GM/50ML D5W 50 ML IV ONE (11:15)
== END 2021-04-30 11:50 | disposition home or self-care (01) ==
LOC: EDBD 08:28 → ER 08:28 → EDUNIT# 08:28 → ER 11:50
DX: S00.511A Abrasion of lip, initial encounter (principal); J44.1 Chronic obstructive pulmonary disease with (acute) exacerbation; D72.829 Elevated white blood cell count, unspecified; E11.9 Type 2 diabetes mellitus without complications; E78.5 Hyperlipidemia, unspecified; M54.2 Cervicalgia; I10 Essential (primary) hypertension; Z90.710 Acquired absence of both cervix and uterus; Z87.891 Personal history of nicotine dependence; V43.52XA Car driver injured in collision with other type car in traffic accident, initial encounter; Y93.89 Activity, other specified; Y92.488 Other paved roadways as the place of occurrence of the external cause; Y99.8 Other external cause status
CPT/HCPCS: 36415; 70450; 70486; 71260; 72125; 74177; 80053; 85025; 96361; 96365; 96375; 99285; J0696; J1885; J7030; Q9967

== ENCOUNTER 2021-07-04 23:48 | Emergency (ER) | payer OTHER, MEDICAID ==
[~2021-07-04] VITALS: Ht 162.6 cm; Wt 117.9 kg
[2021-07-05 01:25] LABS: Basophils # (auto) 0 10 ^3/uL (0-0.2); Eosinophils # (auto) 0.2 10 ^3/uL (0-0.8); Lymphocytes # (auto) 2.1 10 ^3/uL (0.4-5.4); Monocytes # (auto) 0.6 10 ^3/uL (0-1.3); Nucleated Red Blood Cells % 0.1 %
[2021-07-05 01:27] LABS: Basophils % (auto) 0.3 % (0.0-2.0); Eosinophils % (auto) 2.2 % (0.0-7.0); Hematocrit 39.2 % (36.0-46.0); Hemoglobin 12.7 g/dL (12.2-16.2); Lymphocytes % (auto) 21.5 % (10.0-50.0); Mean Corpuscular Hemoglobin 26.5 pg (28.0-32.0); Mean Corpuscular Hgb Conc. 32.5 g/dL (32.0-36.0); Mean Corpuscular Volume 81.6 fL (80.0-100.0); Monocytes % (auto) 6.1 % (0.0-12.0); Neutrophils # (auto) 6.7 10 ^3/uL (1.6-8.6); Neutrophils % (auto) 69.9 % (37.0-80.0); Red Cell Distribution Width 16.2 % (11.8-14.3); White Blood Cell 9.6 10^3/uL (4.4-10.8)
[2021-07-05 01:43] LABS: Alanine Aminotransferase 42 U/L (13-56); Albumin 2.8 g/dL (3.4-5.0); Anion Gap 7 (5-15); Aspartate Aminotransferase 29 U/L (15-37); BUN/Creatinine Ratio 22.4; Blood Urea Nitrogen 15 mg/dL (7-18); Calcium 8.4 mg/dL (8.5-10.1); Carbon Dioxide 29 mmol/L (21-32); Chloride 104 mmol/L (98-107); GFR African American 123 mL/min; GFR Non-African American 102 mL/min; Glucose 125 mg/dL (74-106); Magnesium 2.1 mg/dL (1.6-2.6); Potassium 3.5 mmol/L (3.5-5.1); Sodium 140 mmol/L (136-145)
[2021-07-05 01:44] LABS: INR 0.96 (0.9-1.15); Partial Thromboplastin Time 26.3 sec (23.6-33.0)
[2021-07-05 01:48] LABS: Alkaline Phosphatase 95 U/L (45-117); Bilirubin, Total 0.2 mg/dL (0.2-1.0); Total Protein 7.7 g/dL (6.4-8.2)
[2021-07-05] MEDS ORDERED: MORPHINE SULFATE 10 MG/ML INJ 1ML SDV IV ONE (02:30)
[2021-07-05] MEDS ORDERED: MORPHINE SULFATE INJECTION 2 MG/ML SYRG ONE (02:31)
[2021-07-05 05:10] LABS: Urine Bacteria MOD /hpf (None Seen); Urine Blood TRACE /uL (Negative); Urine Budding Yeast MODERATE /hpf (None Seen); Urine Mucus FEW (None Seen); Urine Specific Gravity 1.038 (1.001-1.035); Urine WBC 6 /hpf (0 - 5)
[2021-07-05] MEDS ORDERED: IOHEXOL 350 MG/ML 100ML IJ ONE (07:37)
[2021-07-05] MEDS ORDERED: KETOROLAC TROMETH 30 MG/ML 1ML VIAL IV ONE (10:45)
[2021-07-05 14:54] VITALS: BP 113/69
== END 2021-07-05 15:27 | disposition home or self-care (01) ==
LOC: EDBD 23:48 → ER 23:57
DX: R07.89 Other chest pain (principal); M79.604 Pain in right leg; R10.9 Unspecified abdominal pain; E11.9 Type 2 diabetes mellitus without complications; E78.5 Hyperlipidemia, unspecified; I10 Essential (primary) hypertension; Z86.73 Personal history of transient ischemic attack (TIA), and cerebral infarction without residual deficits; Z90.710 Acquired absence of both cervix and uterus; Z87.891 Personal history of nicotine dependence; Z79.82 Long term (current) use of aspirin; Z79.1 Long term (current) use of non-steroidal anti-inflammatories (NSAID); Z79.4 Long term (current) use of insulin; Z79.899 Other long term (current) drug therapy
CPT/HCPCS: 36415; 71045; 74177; 80053; 81001; 83735; 83880; 84443; 84484; 84702; 85025; 85379; 85610; 85730; 93005; 93970; 96374; 96375; 96376; 99285; J1885; J2270; Q9967

== ENCOUNTER 2021-08-29 10:52 | Emergency (ER) | payer OTHER, MEDICAID ==
[~2021-08-29] VITALS: Ht 157.5 cm; Wt 136.1 kg
[2021-08-29] MEDS ORDERED: SODIUM CHLORIDE 0.9% 500 ML IV ONE (11:30)
[2021-08-29] MEDS ORDERED: SODIUM CHLORIDE 0.9% 1,000 ML IV ONE (11:30)
[2021-08-29 12:19] LABS: Basophils # (auto) 0 10 ^3/uL (0-0.2); Eosinophils # (auto) 0.1 10 ^3/uL (0-0.8); Lymphocytes # (auto) 1.3 10 ^3/uL (0.4-5.4); Mean Corpuscular Hgb Conc. 32.9 g/dL (32.0-36.0); Monocytes # (auto) 0.4 10 ^3/uL (0-1.3)
[2021-08-29 12:22] LABS: Basophils % (auto) 0.1 % (0.0-2.0); Eosinophils % (auto) 1.1 % (0.0-7.0); Hematocrit 38.9 % (36.0-46.0); Hemoglobin 12.8 g/dL (12.2-16.2); Lymphocytes % (auto) 16.2 % (10.0-50.0); Mean Corpuscular Hemoglobin 26.4 pg (28.0-32.0); Mean Corpuscular Volume 80.3 fL (80.0-100.0); Monocytes % (auto) 5.5 % (0.0-12.0); Neutrophils # (auto) 6.1 10 ^3/uL (1.6-8.6); Neutrophils % (auto) 77.1 % (37.0-80.0); Red Blood Cells 4.84 10^6/uL (4.0-5.20); Red Cell Distribution Width 16.7 % (11.8-14.3); White Blood Cell 7.9 10^3/uL (4.4-10.8)
[2021-08-29 12:39] LABS: Albumin 3.1 g/dL (3.4-5.0); Calcium 8.2 mg/dL (8.5-10.1); Magnesium 2.1 mg/dL (1.6-2.6); Potassium 3.6 mmol/L (3.5-5.1)
[2021-08-29 12:42] LABS: BUN/Creatinine Ratio 15.8; Bilirubin, Total 0.2 mg/dL (0.2-1.0); Total Protein 7.6 g/dL (6.4-8.2)
[2021-08-29] MEDS ORDERED: diphenhdrAMINE HCL 50 MG/1 ML VL IV ONE (13:45)
[2021-08-29] MEDS ORDERED: IOHEXOL 350 MG/ML 100ML IJ ONE (15:52)
[2021-08-29 17:45] VITALS: BP 115/61
== END 2021-08-29 17:59 | disposition home or self-care (01) ==
LOC: ER 10:52 → EDBD 10:52 → ER 17:59
DX: L50.9 Urticaria, unspecified (principal); R06.02 Shortness of breath; E11.65 Type 2 diabetes mellitus with hyperglycemia; E66.01 Morbid (severe) obesity due to excess calories; E46 Unspecified protein-calorie malnutrition; I10 Essential (primary) hypertension; E78.5 Hyperlipidemia, unspecified; E03.9 Hypothyroidism, unspecified; Z68.43 Body mass index [BMI] 50.0-59.9, adult; Z86.73 Personal history of transient ischemic attack (TIA), and cerebral infarction without residual deficits; Z90.710 Acquired absence of both cervix and uterus; Z87.891 Personal history of nicotine dependence; Z20.822 Contact with and (suspected) exposure to COVID-19
CPT/HCPCS: 36415; 71045; 71275; 80053; 82962; 83605; 83735; 84443; 85025; 85379; 87040; 87426; 93005; 96361; 96374; 99285; J1200; J7040; Q9967

== ENCOUNTER 2022-02-24 13:12 | Emergency (ER) | payer OTHER, MEDICAID ==
[~2022-02-24] VITALS: Ht 154.9 cm; Wt 156.5 kg
[2022-02-24] MEDS ORDERED: SODIUM CHLORIDE 0.9% 1,000 ML IV ONE ×2 (14:15→15:30)
[2022-02-24] MEDS ORDERED: THIAMINE 100mg/ml INJ (200mg/2ml VIAL) IV ONE (14:15)
[2022-02-24 14:28] LABS: Basophils # (auto) 0 10 ^3/uL (0-0.2); Eosinophils # (auto) 0.2 10 ^3/uL (0-0.8); Eosinophils % (auto) 1.7 % (0.0-7.0); Lymphocytes # (auto) 1.5 10 ^3/uL (0.4-5.4); Lymphocytes % (auto) 14.9 % (10.0-50.0); Nucleated Red Blood Cells % 0.1 %; Red Blood Cells 4.45 10^6/uL (4.0-5.20)
[2022-02-24 14:32] LABS: Basophils % (auto) 0.4 % (0.0-2.0); Hematocrit 36.3 % (36.0-46.0); Mean Corpuscular Hemoglobin 26.8 pg (28.0-32.0); Mean Corpuscular Hgb Conc. 32.9 g/dL (32.0-36.0); Mean Corpuscular Volume 81.6 fL (80.0-100.0); Monocytes # (auto) 0.4 10 ^3/uL (0-1.3); Monocytes % (auto) 4.4 % (0.0-12.0); Neutrophils % (auto) 78.6 % (37.0-80.0); White Blood Cell 10.1 10^3/uL (4.4-10.8)
[2022-02-24 14:37] LABS: Albumin 3.4 g/dL (3.4-5.0)
[2022-02-24 14:39] LABS: BUN/Creatinine Ratio 23.9
[2022-02-24 14:43] LABS: Bilirubin, Total 0.3 mg/dL (0.2-1.0); Total Protein 7.9 g/dL (6.4-8.2)
[2022-02-24 14:59] LABS: Urine Bacteria FEW /hpf (None Seen); Urine Blood TRACE /uL (Negative); Urine Specific Gravity 1.009 (1.001-1.035); Urine WBC 4 /hpf (0 - 5)
[2022-02-24 18:30] VITALS: BP 143/62
[2022-02-24 21:00] LABS: Albumin 3.2 g/dL (3.4-5.0); BUN/Creatinine Ratio 24.2; Calcium 8.9 mg/dL (8.5-10.1); Potassium 4.3 mmol/L (3.5-5.1)
[2022-02-24 21:08] LABS: Bilirubin, Total 0.2 mg/dL (0.2-1.0); Total Protein 7.8 g/dL (6.4-8.2)
== END 2022-02-24 18:35 | disposition home or self-care (01) ==
LOC: ER 13:12
DX: R00.2 Palpitations (principal); I10 Essential (primary) hypertension; E11.9 Type 2 diabetes mellitus without complications; E78.5 Hyperlipidemia, unspecified; E03.9 Hypothyroidism, unspecified; Z86.73 Personal history of transient ischemic attack (TIA), and cerebral infarction without residual deficits; Z90.710 Acquired absence of both cervix and uterus; Z87.891 Personal history of nicotine dependence; Z79.1 Long term (current) use of non-steroidal anti-inflammatories (NSAID); Z79.4 Long term (current) use of insulin; Z79.899 Other long term (current) drug therapy
CPT/HCPCS: 36415; 71045; 80053; 81001; 83605; 83690; 84484; 85025; 85379; 93005; 96361; 96374; 99285; J3411; J7030

== ENCOUNTER 2022-05-23 04:11 | Emergency (ER) | payer OTHER, MEDICAID ==
[~2022-05-23] VITALS: Ht 167.6 cm; Wt 220.0 kg
[2022-05-23] MEDS ORDERED: ACETAMINOPHEN 325 MG TAB PO ONE (05:45)
[2022-05-23] MEDS ORDERED: KETOROLAC TROMETH 30 MG/ML 1ML VIAL IV ONE (08:30)
[2022-05-23] MEDS ORDERED: SODIUM CHLORIDE 0.9% 1,000 ML IV ONE (08:30)
[2022-05-23 09:35] LABS: Basophils # (auto) 0.1 10 ^3/uL (0-0.2); Basophils % (auto) 0.6 % (0.0-2.0); Lymphocytes # (auto) 2.4 10 ^3/uL (0.4-5.4); Neutrophils % (auto) 73.3 % (37.0-80.0)
[2022-05-23 09:41] LABS: Eosinophils # (auto) 0.2 10 ^3/uL (0-0.8); Eosinophils % (auto) 1.8 % (0.0-7.0); Hematocrit 39.8 % (36.0-46.0); Hemoglobin 12.4 g/dL (12.2-16.2); Lymphocytes % (auto) 19.3 % (10.0-50.0); Mean Corpuscular Hemoglobin 25.2 pg (28.0-32.0); Mean Corpuscular Hgb Conc. 31.1 g/dL (32.0-36.0); Monocytes # (auto) 0.6 10 ^3/uL (0-1.3); Neutrophils # (auto) 9.2 10 ^3/uL (1.6-8.6); Nucleated Red Blood Cells % 0.1 %; Red Blood Cells 4.91 10^6/uL (4.0-5.20); Red Cell Distribution Width 17.6 % (11.8-14.3); White Blood Cell 12.6 10^3/uL (4.4-10.8)
[2022-05-23 09:50] LABS: Albumin 3.3 g/dL (3.4-5.0); Calcium 8.9 mg/dL (8.5-10.1); Magnesium 1.8 mg/dL (1.6-2.6); Potassium 4.4 mmol/L (3.5-5.1)
[2022-05-23 10:03] LABS: BUN/Creatinine Ratio 22.6; Bilirubin, Total 0.2 mg/dL (0.2-1.0)
[2022-05-23 11:29] LABS: Urine Bacteria FEW /hpf (None Seen); Urine Blood TRACE /uL (Negative); Urine Mucus FEW (None Seen); Urine Specific Gravity 1.018 (1.001-1.035); Urine WBC 21 /hpf (0 - 5)
[2022-05-23] MEDS ORDERED: CIPR-173 PO (14:00)
[2022-05-23] MEDS ORDERED: DEX4T PO (14:00)
[2022-05-23] MEDS ORDERED: TRAM50TA2 PO (14:00)
[2022-05-23 14:20] VITALS: BP 125/68
== END 2022-05-23 14:23 | disposition home or self-care (01) ==
LOC: EDBD 04:11 → ER 04:11
DX: M75.31 Calcific tendinitis of right shoulder (principal); N39.0 Urinary tract infection, site not specified; E03.9 Hypothyroidism, unspecified; E44.1 Mild protein-calorie malnutrition; Z68.45 Body mass index [BMI] 70 or greater, adult
CPT/HCPCS: 36415; 71046; 73030; 80053; 81001; 82962; 83735; 84443; 85025; 93971; 96361; 96374; 99285; J1885; J7030

== ENCOUNTER 2022-10-11 13:50 | Emergency (ER) | payer OTHER, MEDICAID ==
[~2022-10-11] VITALS: Ht 154.9 cm; Wt 168.1 kg
[~2022-10-11 13:50] MED LIST changes: +CIPR-173 PO; +DEX4T PO; +TRAM50TA2 PO
[2022-10-11 14:45] LABS: Monocytes # (auto) 0.7 10 ^3/uL (0-1.3); Monocytes % (auto) 6.7 % (0.0-12.0); Red Blood Cells 4.86 10^6/uL (4.0-5.20)
[2022-10-11 14:47] LABS: Basophils # (auto) 0 10 ^3/uL (0-0.2); Basophils % (auto) 0.4 % (0.0-2.0); Eosinophils # (auto) 0 10 ^3/uL (0-0.8); Eosinophils % (auto) 0.4 % (0.0-7.0); Hematocrit 38.1 % (36.0-46.0); Hemoglobin 12.2 g/dL (12.2-16.2); Lymphocytes % (auto) 10.1 % (10.0-50.0); Mean Corpuscular Hemoglobin 25.1 pg (28.0-32.0); Mean Corpuscular Volume 78.4 fL (80.0-100.0); Neutrophils # (auto) 8.5 10 ^3/uL (1.6-8.6); Neutrophils % (auto) 82.4 % (37.0-80.0); Red Cell Distribution Width 16.3 % (11.8-14.3); White Blood Cell 10.3 10^3/uL (4.4-10.8)
[2022-10-11 15:08] LABS: Albumin 3.2 g/dL (3.4-5.0); Calcium 8.8 mg/dL (8.5-10.1); Potassium 3.6 mmol/L (3.5-5.1)
[2022-10-11 15:17] LABS: BUN/Creatinine Ratio 22.8; Bilirubin, Total 0.4 mg/dL (0.2-1.0); Total Protein 7.6 g/dL (6.4-8.2)
[2022-10-11] MEDS ORDERED: DEXT1SYP9 PO (17:01)
[2022-10-11 17:13] VITALS: BP 146/84
== END 2022-10-11 17:14 | disposition home or self-care (01) ==
LOC: ER 13:50
DX: B34.9 Viral infection, unspecified (principal); E11.9 Type 2 diabetes mellitus without complications; E78.5 Hyperlipidemia, unspecified; I10 Essential (primary) hypertension; Z87.891 Personal history of nicotine dependence; Z90.710 Acquired absence of both cervix and uterus; Z86.73 Personal history of transient ischemic attack (TIA), and cerebral infarction without residual deficits
CPT/HCPCS: 36415; 71045; 80053; 84484; 85025; 93005

== ENCOUNTER 2023-03-31 10:00 | Inpatient (IN) | payer OTHER, MEDICAID ==
[~2023-03-31] VITALS: Ht 156.2 cm; Wt 166.0 kg
[~2023-03-31 10:00] MED LIST changes: +DEXT1SYP9 PO; +IBUP-1456 PO; -IBUP800T27 PO
[2023-03-31 11:06] LABS: Basophils # (auto) 0 10 ^3/uL (0-0.2); Basophils % (auto) 0.4 % (0.0-2.0); Eosinophils # (auto) 0.2 10 ^3/uL (0-0.8); Hematocrit 36.2 % (36.0-46.0); Hemoglobin 11.5 g/dL (12.2-16.2); Lymphocytes # (auto) 1.7 10 ^3/uL (0.4-5.4); Lymphocytes % (auto) 19.7 % (10.0-50.0); Mean Corpuscular Hemoglobin 24.4 pg (28.0-32.0); Mean Corpuscular Hgb Conc. 31.8 g/dL (32.0-36.0); Mean Corpuscular Volume 76.7 fL (80.0-100.0); Monocytes # (auto) 0.4 10 ^3/uL (0-1.3); Monocytes % (auto) 4.3 % (0.0-12.0); Neutrophils # (auto) 6.3 10 ^3/uL (1.6-8.6); Neutrophils % (auto) 73.6 % (37.0-80.0); Nucleated Red Blood Cells % 0.1 %; Red Blood Cells 4.71 10^6/uL (4.0-5.20); Red Cell Distribution Width 17.5 % (11.8-14.3); White Blood Cell 8.6 10^3/uL (4.4-10.8)
[2023-03-31 11:19] LABS: Calcium 8.1 mg/dL (8.5-10.1); Potassium 4.1 mmol/L (3.5-5.1)
[2023-03-31 11:21] LABS: BUN/Creatinine Ratio 23.1 (10.0-20.0); Bilirubin, Total 0.3 mg/dL (0.2-1.0); Total Protein 7.2 g/dL (6.4-8.2)
[2023-03-31 11:24] LABS: INR 0.97 (0.9-1.15); Partial Thromboplastin Time 27.6 sec (24.6-33.4)
[2023-03-31] MEDS ORDERED: NITROGLYCERIN 0.4 MG SL TAB SL PRN (14:30)
[2023-03-31] MEDS ORDERED: IPRATROPIUM BROM 0.5 MG/2.5ML INH SOL NEB PRN (14:30)
[2023-03-31] MEDS ORDERED: ALBUTEROL SULF 2.5 MG/0.5ML(0.5%) NEB SOLN NEB PRN (14:30)
[2023-03-31] MEDS ORDERED: ACETAMINOPHEN 500 MG TAB PO PRN (14:30)
[2023-03-31] MEDS ORDERED: DEXTROSE (50%) 50ML SYRG IV PRN (14:30)
[2023-03-31] MEDS ORDERED: ONDANSETRON HCL 4 MG/2 ML VIAL IV PRN (14:30)
[2023-03-31] MEDS ORDERED: MORPHINE SULFATE INJ 2 MG/ml SYRG IV PRN (14:30)
[2023-03-31 15:15] VITALS: BP 154/81
[2023-03-31] MEDS: ACCU-CHEK COMFORT CURVE STRIP VI SCH ×2 (17:00→22:14)
[2023-03-31] MEDS: InsuLIN REG 1unit/0.01ml Soln (100units/ml) SC SCH ×2 (17:00→22:00)
[2023-03-31] MEDS: HYDROcodone-ACET 10/325MG TAB PO PRN (21:00)
[2023-03-31] MEDS: INSULIN LANTUS (GLARGINE) 1 /0.01ml (100units/ml) SC SCH (22:19)
[2023-04-01] MEDS: HYDROcodone-ACET 10/325MG TAB PO PRN ×2 (03:45→16:41)
[2023-04-01 05:51] VITALS: BP 130/60
[2023-04-01 06:04] LABS: Urine Bacteria FEW /hpf (None Seen); Urine Blood Negative /uL (Negative); Urine Mucus FEW (None Seen); Urine Specific Gravity 1.024 (1.001-1.035); Urine WBC 54 /hpf (0 - 5)
[2023-04-01] MEDS: ACCU-CHEK COMFORT CURVE STRIP VI SCH ×4 (06:10→21:05)
[2023-04-01] MEDS: InsuLIN REG 1unit/0.01ml Soln (100units/ml) SC SCH ×4 (06:13→21:10)
[2023-04-01] MEDS ORDERED: TIRZ5INJ SC (06:36)
[2023-04-01] MEDS ORDERED: LEVO175T4 PO (06:36)
[2023-04-01] MEDS ORDERED: INSU1INJ19 SC (06:36)
[2023-04-01 09:00] VITALS: BP 140/55
[2023-04-01] MEDS: cefTRIAXone 1GM/50ML D5W 50 ML IV SCH (09:28)
[2023-04-01] MEDS ORDERED: LEVOTHYROXINE SODIUM 50 MCG TAB PO ONE (09:30)
[2023-04-01] MEDS: ENOXAPARIN SOD 40 MG/0.4 ML SYRINGE SC SCH (09:30)
[2023-04-01] MEDS: methylPREDNISolone SOD SUCC 40 MG/ML VL IV SCH (09:30)
[2023-04-01] MEDS ORDERED: OPTISON 3ml Vial for INJ IV ONE (11:30)
[2023-04-01 13:00] VITALS: BP 120/70
[2023-04-01 17:00] VITALS: BP 120/64
[2023-04-01 20:00] VITALS: BP 105/61
[2023-04-01] MEDS: MORPHINE SULFATE INJ 2 MG/ml SYRG IV PRN (20:53)
[2023-04-01] MEDS: INSULIN LANTUS (GLARGINE) 1 /0.01ml (100units/ml) SC SCH (21:15)
[2023-04-01 22:00] VITALS: BP 105/61
[2023-04-02] MEDS: MORPHINE SULFATE INJ 2 MG/ml SYRG IV PRN ×2 (04:08→11:38)
[2023-04-02 05:00] VITALS: BP 123/64
[2023-04-02] MEDS: ACCU-CHEK COMFORT CURVE STRIP VI SCH ×3 (06:23→17:28)
[2023-04-02] MEDS: InsuLIN REG 1unit/0.01ml Soln (100units/ml) SC SCH ×3 (06:23→17:36)
[2023-04-02] MEDS ORDERED: LEVOTHYROXINE SODIUM 100 MCG TAB PO SCH (07:00)
[2023-04-02 08:00] VITALS: BP 126/63
[2023-04-02] MEDS: cefTRIAXone 1GM/50ML D5W 50 ML IV SCH (08:40)
[2023-04-02] MEDS: methylPREDNISolone SOD SUCC 40 MG/ML VL IV SCH (09:41)
[2023-04-02] MEDS: ENOXAPARIN SOD 40 MG/0.4 ML SYRINGE SC SCH (09:41)
[2023-04-02 12:00] VITALS: BP 121/57
[2023-04-02 16:00] VITALS: BP 106/55
[2023-04-02] MEDS ORDERED: LEVO175T2 PO (17:07)
[2023-04-02] MEDS ORDERED: NITR-87 PO (17:07)
== END 2023-04-02 18:38 | disposition home or self-care (01) | DRG 189 ==
LOC: ER 10:00 → EDBD 10:00 → TELE 14:24 → TELE-EAST 04-01 05:40
PROVIDERS: ADMIT Nurse Practitioner Acute Care; ATTEND Nurse Practitioner Acute Care
PROC: 5A09357 Assistance with Respiratory Ventilation, Less than 24 Consecutive Hours, Continuous Positive Airway Pressure (ICD-10-PCS; principal; 2023-04-01)
DX: J96.21 Acute and chronic respiratory failure with hypoxia (principal); N39.0 Urinary tract infection, site not specified; Z68.44 Body mass index [BMI] 60.0-69.9, adult; R07.89 Other chest pain; E11.9 Type 2 diabetes mellitus without complications; E03.9 Hypothyroidism, unspecified; G89.4 Chronic pain syndrome; D63.8 Anemia in other chronic diseases classified elsewhere; E66.01 Morbid (severe) obesity due to excess calories; M54.50 Low back pain, unspecified; I27.20 Pulmonary hypertension, unspecified; J44.9 Chronic obstructive pulmonary disease, unspecified; I10 Essential (primary) hypertension; G47.33 Obstructive sleep apnea (adult) (pediatric); Z80.9 Family history of malignant neoplasm, unspecified; Z81.8 Family history of other mental and behavioral disorders; Z82.5 Family history of asthma and other chronic lower respiratory diseases; Z82.49 Family history of ischemic heart disease and other diseases of the circulatory system; Z86.73 Personal history of transient ischemic attack (TIA), and cerebral infarction without residual deficits; Z86.711 Personal history of pulmonary embolism; Z87.891 Personal history of nicotine dependence; Z90.710 Acquired absence of both cervix and uterus; Z99.81 Dependence on supplemental oxygen; Z85.42 Personal history of malignant neoplasm of other parts of uterus; Z83.3 Family history of diabetes mellitus
CPT/HCPCS: 36415; 36600; 71046; 80053; 81001; 82805; 82962; 83036; 83735; 83880; 84443; 84484; 85025; 85379; 85610; 85652; 85730; 87086; 93005; 93306; 94660; 96374; G0378; J0696; J1815; J2405; Q9956

== ENCOUNTER → 2023-04-21 | Outpatient (CLI) | payer OTHER ==
[~2023-04-21] VITALS: Ht 154.9 cm; Wt 163.3 kg
[~2023-04-21] MED LIST changes: -CIPR-173 PO; -DEX4T PO; -DEXT1SYP9 PO; -IBUP-1456 PO; -INSLANTI SC; +INSU1INJ19 SC; +LEVO175T2 PO; +LEVO175T4 PO; -LEVO200T PO; -METH4PAK PO; +NITR-87 PO; +TIRZ5INJ SC; -TRAM50TA2 PO
== END | disposition home or self-care (01) ==
LOC: Rad HDHVI 13:37
PROVIDERS: ATTEND Internal Medicine Cardiovascular Disease
DX: I10 Essential (primary) hypertension (principal); E11.9 Type 2 diabetes mellitus without complications; J44.9 Chronic obstructive pulmonary disease, unspecified; E03.9 Hypothyroidism, unspecified; E66.01 Morbid (severe) obesity due to excess calories; Z68.44 Body mass index [BMI] 60.0-69.9, adult; Z87.891 Personal history of nicotine dependence; Z86.711 Personal history of pulmonary embolism; Z86.73 Personal history of transient ischemic attack (TIA), and cerebral infarction without residual deficits; Z85.42 Personal history of malignant neoplasm of other parts of uterus; Z95.828 Presence of other vascular implants and grafts; Z90.710 Acquired absence of both cervix and uterus
CPT/HCPCS: 78472; 96374; 96375; A9505

== ENCOUNTER → 2023-05-09 | Outpatient (CLI) | payer OTHER | END | disposition home or self-care (01) | LOC: Rad HDHVI 15:55 | PROVIDERS: ATTEND Internal Medicine Cardiovascular Disease | DX: E78.5 Hyperlipidemia, unspecified (principal) | CPT/HCPCS: 93970 ==

== ENCOUNTER → 2023-12-15 | Outpatient (CLI) | payer OTHER | END | disposition home or self-care (01) | LOC: Rad HDHVI 14:59 | PROVIDERS: ATTEND Internal Medicine Cardiovascular Disease | DX: I08.1 Rheumatic disorders of both mitral and tricuspid valves (principal); I11.9 Hypertensive heart disease without heart failure; R07.9 Chest pain, unspecified | CPT/HCPCS: 93306 ==

== ENCOUNTER 2024-09-15 15:10 | Inpatient (IN) | payer OTHER, MEDICAID ==
[~2024-09-15] VITALS: Ht 188 cm; Wt 171.5 kg
[~2024-09-15 15:10] MED LIST changes: +AMIT-399 PO; +GABA-1308 PO; +HYDR-4798 PO; +METF-372 PO; +TIRZ12.5 SC
--- NOTE | 2024-09-15 15:42 | ED.PDOC ---
GI ASSESSMENT HPI Comments 49 y.o female with extensive PMH of DM, HTN, hyperlipidemia, PE on home O2, thyroid and uterine cancer and is in remission, presents to the ED for a chief complaint of mid abdominal pain radiating to her left side associated with nausea, dysuria and constipation x 1 day. Patient describes pain as sharp, constant, rating a 10/10 on the pain scale. Patient's last bowel movement was yesterday but states she feels constipated. Patient mentions having a urine analysis test done outpatient recently due to dysuria but is awaiting results. No hematuria, fever, chills reported. Patient also complains of ongoing throat pain associated with increased thirst and dry mouth, states these symptoms have presented in the past due to her thyroid disease. She endorses having issues with hyper and hypothyroidism, is on levothyroxine. Chief Complaint: Abdominal Pain Time Seen by MD: 15:22 Primary Care Provider: UNK Reviewed Notes: Nurses Notes, Medications, Allergies Allergies: Coded Allergies: NO KNOWN ALLERGIES (Unverified , 05/13/14) Home Meds Active Scripts Ondansetron Odt 4MG Tab (ZOFRAN PO) 4 Mg Tb, 4 MG PO TID PRN, #30 TAB prn n/v ODT TAB-DISSOLVE IN MOUTH, THEN SWALLOW Prov:JUMANA ROWLAND MD 09/15/24 Cephalexin Monohydrate (Cephalexin) 500 Mg Cap, 1 CAP PO QID for 10 Days, #40 CAP Prov:JUMANA ROWLAND MD 09/15/24 Ibuprofen Micronized (Ibuprofen) 800 Mg Tab, 800 MG PO Q8HP PRN, #30 TAB prn fever or pain Prov:JUMANA ROWLAND MD 09/15/24 Acetaminophen (Tylenol Extra Strength) 500 Mg Tab, 1000 MG PO Q6HP PRN, #30 TAB prn fever or pain Prov:JUMANA ROWLAND MD 09/15/24 Levothyroxine Sodium (Synthroid) 175 Mcg Tab, 1 TAB PO DAILY for 30 Days, #30 TAB 5 Refills Prov:ENMANUEL MCINTYRE MD 04/02/23 Nitrofurantoin Monohydrate Mac (Macrobid) 100 Mg Cap, 100 MG PO BID for 5 Days, #10 CAP Prov:ENMANUEL MCINTYRE MD 04/02/23 Aspirin (MICHELLE ASPIRIN EC LOW DOSE) 81 Mg Tab, 1 TAB PO DAILY, #30 TAB Prov:WILSON LINDSEY MD 03/20/21 Reported Medications Insulin Glargine (Basaglar Kwikpen) 100 Unit/Ml Inj, 35 UNIT SC QHSP, INJ 04/01/23 Tirzepatide (Mounjaro) 5 Mg/0.5 Ml Inj, 5 MG SC QWEEKLY, INJ 04/01/23 Levothyroxine Sodium (Levothyroxine Sodium) 175 Mcg Tab, 175 MCG PO QAM for 30 Days, MCG 04/01/23 Ergocalciferol (VITAMIN D 80429 UNIT) 50,000 [place], [address] UNIT PO QWEEKLY, CAP 03/18/21 Oxycodone W/ Acetaminophen (Apap/Oxycodone) 1 Tab Tab, 10-325 MG PO Q6HPRN PRN for SEVERE PAIN (7-10 PAIN SCALE), #90 TAB 02/14/20 Albuterol Sulfate (VENTOLIN MDI) 90 Mcg Ih, 90 MCG IN Q6HP PRN for SHORTNESS OF BREATH for 30 Days, MCG 02/13/20 Fluoxetine Hcl (Fluoxetine Hcl) 20 Mg Cap, 40 MG PO DAILY for 30 Days, MG 10/11/18 Information Source: Patient Mode of Arrival: Ambulatory Timing: Days (1) Duration: Since onset Quality: Sharp Vomitus: None Stool: Empty Severity: Moderate Recent: None Recent Hx of: None Pain Location: LUQ, LLQ, Periumbilical Modifying Factors: Nothing Associated sign and symptoms: Nausea, Constipation, Abdominal Pain Past Medical History PAST MEDICAL HISTORY: Anemia, Cancer, DM, High Lipids, HTN, PE, Thyroid, TIA Surgical History: Hysterectomy CARDIOLOGY CLINICAL NURSE SPECIALIST History: No Pertinent CARDIOLOGY CLINICAL NURSE SPECIALIST History, Other Family History Family History: Family hx of DM, Family hx of Cancer, Family hx of HTN, Family hx of lung jessica Family History (Other): Asthma Social History Smoker: Quit Greater Than 1 Year Alcohol: Occasionally Drugs: Denies Drug Use Lives In: Home Constitutional: denies: chills, diaphoresis, fatigue, fever, malaise, sweats, weakness, others EENTM: denies: blurred vision, double vision, ear bleeding, ear discharge, ear drainage, ear pain, ear ringing, eye pain, eye redness, hearing loss, mouth pain, mouth swelling, nasal discharge, nose bleeding, nose congestion, nose pain, photophobia, tearing, throat pain, throat swelling, voice changes, others Respiratory: denies: cough, hemoptysis, orthopnea, SOB at rest, shortness of breath, SOB with excertion, stridor, wheezing, others Cardiovascular: denies: chest pain, dizzy spells, diaphoresis, Dyspnea on exertion, edema, irregular heart beat, left arm pain, lightheadedness, palpitations, PND, syncope, others Gastrointestinal: reports: abdominal pain, constipated, nausea; denies: abdomen distended, blood streaked bowels, diarrhea, dysphagia, difficulty swallowing, hematemesis, melena, poor appetite, poor fluid intake, rectal bleeding, rectal pain, vomiting, others Genitourinary: denies: abnormal vagina bleeding, burning, dyspareunia, dysuria, flank pain, frequency, hematuria, incontinence, pain, , vagina discharge, urgency, others Neurological: denies: dizziness, fainting, headache, left sided numbness, left sided weakness, numbness, paresthesia, pre-existing deficit, right sided numbness, right sided weakness, seizure, speech problems, tingling, tremors, weakness, others Musculoskeletal: denies: back pain, gout, joint pain, joint swelling, muscle pain, muscle stiffness, neck pain, others Integumetry: denies: bruises, change in color, change in hair/nails, dryness, laceration, lesions, lumps, rash, wounds, others Allergic/Immunocompromised: denies: Difficulty Healing, Frequent Infections, Hives, Itching, others Hematologic/Lymphatic: denies: anemia, blood clots, easy bleeding, easy bruising, swollen glands, others Endocrine: reports: excessive thirst; denies: excessive hunger, excessive sweating, excessive urination, flushing, intolerance to cold, intolerance to heat, unexplained weight gain, unexplained weight loss, others Psychiatric: denies: anxiety, bipolar disorder, depression, hopeless, panic disorder, schizophrenia, sleepless, suicidal, others All Other Systems: Reviewed and Negative Physical Exam General Appearance: Mild Distress, Obese HEENT: Normal ENT Inspection Neck: Full Range of Motion, Normal Inspection Respiratory: Lungs Clear, No Accessory Muscle Use, No Respiratory Distress, Normal Breath Sounds Cardiovascular: No Edema, No JVD, Regular Rate/Rhythm Breast Exam: Deferred Gastrointestinal: LLQ, LUQ, Soft, Tenderness, Other (large pannus limits abdominal exam) Genitalia: Deferred Pelvic: Deferred Rectal: Deferred Extremities: Normal inspection, Normal range of motion, Non-tender, No pedal edema Neurologic: Alert, No Motor Deficits, Normal Affect, Normal Mood, No Sensory Deficits Cerebellar Function: NOT DONE Reflexes: NOT DONE Skin: Dry, Normal Color, Warm Lymphatic: NOT DONE Was a procedure done? Was a procedure done?: No GI differential Dx Differential Diagnosis: Diverticular disease, Gastritis/PUD, Gastroenteritis, Inflammatory BD, Ischemic Bowel, PID, Urinary Obstruction, UTI, Urolithiasis, Dehydration, Diabetes/ DKA, Electrolyte Imbalance, Food Poisoning, , Bacterial, Viral, Impaction, Renal Failure, Ischemic Bowel, Stress Ulcer, Kidney Stone, Other (colitis) X-Ray, Labs, Meds, VS Vital Signs Date Time Temp Pulse Resp B/P (MAP) Pulse Ox O2 Delivery O2 Flow Rate FiO2 09/15/24 19:38 68 18 122/64 (83) 100 09/15/24 19:33 68 18 122/64 09/15/24 19:08 63 18 116/69 (85) 100 09/15/24 18:26 85 20 110/58 09/15/24 17:56 65 19 117/51 09/15/24 17:51 97.5 65 20 117/51 (73) 98 97.5 09/15/24 17:51 65 20 98 Room Air 09/15/24 15:28 97.0 74 22 127/68 (87) 96 Lab Test 09/15/24 16:19 09/15/24 15:32 Range/Units White Blood Count 11.2 H 4.4-10.8 10^3/uL Red Blood Count 4.39 4.0-5.20 10^6/uL Hemoglobin 12.4 12.2-16.2 g/dL Hematocrit 36.5 36.0-46.0 % Mean Corpuscular Volume 83.1 80.0-100.0 fL Mean Corpuscular Hemoglobin 28.2 28.0-32.0 pg Mean Corpuscular Hemoglobin Concent 33.9 32.0-36.0 g/dL Red Cell Distribution Width 16.1 H 11.8-14.3 % Platelet Count 263 140-450 10^3/uL Mean Platelet Volume 8.4 6.9-10.8 fL Neutrophils (%) (Auto) 76.9 37.0-80.0 % Lymphocytes (%) (Auto) 16.1 10.0-50.0 % Monocytes (%) (Auto) 4.2 0.0-12.0 % Eosinophils (%) (Auto) 2.3 0.0-7.0 % Basophils (%) (Auto) 0.5 0.0-2.0 % Neutrophils # (Auto) 8.6 1.6-8.6 10 ^3/uL Lymphocytes # (Auto) 1.8 0.4-5.4 10 ^3/uL Monocytes # (Auto) 0.5 0-1.3 10 ^3/uL Eosinophils # (Auto) 0.3 0-0.8 10 ^3/uL Basophils # (Auto) 0.1 0-0.2 10 ^3/uL Nucleated Red Blood Cells 0.1 % Sodium Level 140 136-145 mmol/L Potassium Level 3.8 3.5-5.1 mmol/L Chloride Level 100 98-107 mmol/L Carbon Dioxide Level 32 H 20-31 mmol/L Anion Gap 8 5-15 Blood Urea Nitrogen 11 9-23 mg/dL Creatinine 1.08 H 0.550-1.02 mg/dL Glomerular Filtration Rate Calc 63 >90 mL/min BUN/Creatinine Ratio 10.2 10.0-20.0 Serum Glucose 121 H 74-106 mg/dL Lactic Acid Level 1.3 0.4-2.0 mmol/L Calcium Level 10.3 8.7-10.4 mg/dL Free Thyroxine Index Pending Thyroxine (T4) Pending Triiodothyronine (T3) Uptake Pending Beta HCG, Quantitative 0.6 L 1.5-4.2 mIU/mL Urine Color Colorless Yellow Urine Clarity Clear Clear Urine pH 6.0 5.0-9.0 Urine Specific [place] 1.012 1.001-1.035 Urine Protein Negative Negative Urine Ketones Negative Negative Urine Blood Trace H Negative /uL Urine Nitrite Negative Negative Urine Bilirubin Negative Negative Urine Urobilinogen Normal Negative mg/dL Urine Leukocyte Esterase 3+ Negative /uL Urine RBC 5 0 - 4 /hpf Urine WBC 66 0 - 5 /hpf Urine Squamous Epithelial Cells Few <5 /hpf Urine Bacteria None seen None Seen /hpf Urine Glucose Normal Normal mg/dL POC Glucose 146 H 70-106 mg/dl Current Medications Medications (Trade) Dose Ordered Sig/Nurys Route Start Time Stop Time Status Last Admin Sodium Chloride 1,000 ml @ 1,000 mls/hr Q1H ONCE IV 09/15/24 15:45 09/15/24 16:44 DC 09/15/24 15:45 Morphine Sulfate 4 mg ONCE ONCE IV 09/15/24 15:45 09/15/24 15:46 DC 09/15/24 17:56 Ondansetron HCl (Zofran) 4 mg ONCE ONCE IV 09/15/24 15:45 09/15/24 15:46 DC 09/15/24 17:55 Ceftriaxone Sodium 50 ml @ 100 mls/hr ONCE ONCE IV 09/15/24 16:00 09/15/24 16:29 DC 09/15/24 17:55 Morphine Sulfate 4 mg ONCE ONCE IV 09/15/24 19:15 09/15/24 19:16 DC 09/15/24 19:33 PROCEDURE(s): ABPL - CT AB PEL WO CON-NO ORAL OR IV REASON: L ided abd pain ORDER NUMBER(s): [id number], ACCESSION NUMBER(s): [id number] Exam: CT CT AB PEL WO CON-NO ORAL OR IV History: L ided abd pain Comparison Study: None available at time of dictation. TECHNIQUE: Multidetector CT of the abdomen was performed from lung bases to pubic symphysis. Imaging was performed without IV contrast. Axial, coronal and sagittal multiplanar reformats were obtained from the axial data set by the technologist. Radiation Dose Information: CT Dose: CTDI volume is 27.88 mGy. Dose-length product is 1337.1 mGy*cm FINDINGS: Evaluation of solid organs is limited due to lack of intravenous contrast use. Findings: Lung Bases: No acute or significant lung base finding. Normal heart size. No pleural or pericardial effusion. Liver: The liver is normal in size. No focal lesions. Gallbladder and Biliary Tree: Unremarkable Spleen: Unremarkable Pancreas: The pancreas is grossly normal in appearance. Adrenal Glands: Unremarkable Kidneys: Kidneys are grossly normal without calculi or hydronephrosis. Bladder: Grossly unremarkable for degree of distention. Bowel: The stomach is grossly normal in appearance. Small bowel and colon are normal in caliber and distribution. The appendix is not visualized; however, no secondary findings of acute appendicitis identified. Ascites: Absent Lymphadenopathy: No mesenteric, retroperitoneal or periportal lymphadenopathy. Abdominal Wall and Mesentery: Unremarkable. Vasculature: The visualized abdominal aorta is normal in size and caliber. Evaluation of abdominal and pelvic vessels is limited due to lack of intravenous contrast. IVC filter in place. Pelvic Organs: IUD in the uterus. Musculoskeletal: No aggressive focal bony lesions, acute fractures or dislocation. Soft tissues: Unremarkable IMPRESSION: 1. IVC filter in place 2. IUD in the uterus. 3. Gallbladder contracted. 4. No findings of bowel obstruction. 5. No nephrolithiasis or hydronephrosis. 6. No bladder calculi. Radiation optimization: All CT scans at this facility use at least one of these dose optimization techniques: automated exposure control mA and/or kV adjustment per patient size (includes targeted exams where dose is matched to clinical indication) or iterative reconstruction. X-Ray, Labs, Meds, VS Comment 49 y.o female with extensive PMH of DM, HTN, hyperlipidemia, PE on home O2, thyroid and uterine cancer in remission, complaining of left-sided abdominal pain, nausea, constipation and dysuria Vitals remarkable for temperature 97, respiratory rate 22 Exam remarkable for left-sided abdominal tenderness to palpation. Note: Exam limited due to large pannus CT abdomen and pelvis IMPRESSION: 1. IVC filter in place 2. IUD in the uterus. 3. Gallbladder contracted. 4. No findings of bowel obstruction. 5. No nephrolithiasis or hydronephrosis. 6. No bladder calculi. UA abnormal consistent with UTI CBC, basic metabolic panel, hCG and lactate remarkable for WBC 11.2, CO2 32, creatinine 1.08, glucose 121. No other abnormalities of acute significance Patient treated with the following in the ED: 1 L 0.9 normal saline IV bolus, morphine 4 mg IV x2, Zofran 4 mg IV, Rocephin 1 g IV, Dilaudid 1 mg IV, carafate 1g po On re-evaluation, patient states pain has somewhat improved, vitals are stable. Despite multiple doses of morphine, patient stated her pain was persistent. Plan is to admit the patient for pain control and IV antibiotics. Time of 1ST Reevaluation: 15:36 Reevaluation 1ST: Unchanged Time of 2ND Reevaluation: 18:58 Reevaluation 2ND: Improved Patient Education/Counseling: Diagnosis, Treatment, Prognosis Family Education/Counseling: No Family Present Departure 1 Departure Time of Disposition: 18:30 Impression: Primary Impression: UTI (urinary tract infection) Qualified Codes: N39.0 - Urinary tract infection, site not specified Additional Impression: Intractable abdominal pain Disposition: ADMITTED INPATIENT Admit to: Med Surg Condition: Fair Additional Instructions: Your blood tests and CT scan were unremarkable. Your urine test showed you have a urinary tract infection. I have prescribed pain medication and antibiotics. Follow-up with your primary doctor in 1-2 days. e-Prescriptions Ondansetron Odt 4MG Tab (ZOFRAN PO) 4 Mg Tb 4 MG PO TID PRN, #30 TAB prn n/v ODT TAB-DISSOLVE IN MOUTH, THEN SWALLOW Prov: JUMANA ROWLAND MD 09/15/24 Cephalexin Monohydrate (Cephalexin) 500 Mg Cap 1 CAP PO QID for 10 Days, #40 CAP Prov: JUMANA ROWLAND MD 09/15/24 Ibuprofen Micronized (Ibuprofen) 800 Mg Tab 800 MG PO Q8HP PRN, #30 TAB prn fever or pain Prov: JUMANA ROWLAND MD 09/15/24 Acetaminophen (Tylenol Extra Strength) 500 Mg Tab 1000 MG PO Q6HP PRN, #30 TAB prn fever or pain Prov: JUMANA ROWLAND MD 09/15/24 Critical Care Note Critical Care Time?: No Stability Stability form required: No I personally scribed for JUMANA ROWLAND MD ([email or web address]) on 09/15/24 at 15:42. Electronically submitted by Micaela Nieves ([facility]). I personally scribed for JUMANA ROWLAND MD ([email or web address]) on 09/15/24 at 18 :55. Electronically submitted by Micaela Nieves ([facility]). JUMANA ROWLAND MD Sep 15, 2024 15:42
[2024-09-15] MEDS: SODIUM CHLORIDE 0.9% 1,000 ML IV ONE (15:45)
[2024-09-15 15:46] LABS: Urine Bacteria None Seen /hpf (None Seen)
[2024-09-15 15:50] LABS: Urine Blood TRACE /uL (Negative); Urine Clarity Clear (Clear); Urine Color Colorless (Yellow); Urine Protein, UAD Negative (Negative); Urine Specific Gravity 1.012 (1.001-1.035); Urine Urobilinogen Normal (Negative); Urine WBC 66 /hpf (0 - 5)
[2024-09-15 16:26] LABS: Basophils # (auto) 0.1 10 ^3/uL (0-0.2); Basophils % (auto) 0.5 % (0.0-2.0); Eosinophils # (auto) 0.3 10 ^3/uL (0-0.8); Eosinophils % (auto) 2.3 % (0.0-7.0); Hematocrit 36.5 % (36.0-46.0); Hemoglobin 12.4 g/dL (12.2-16.2); Lymphocytes # (auto) 1.8 10 ^3/uL (0.4-5.4); Lymphocytes % (auto) 16.1 % (10.0-50.0); Mean Corpuscular Hemoglobin 28.2 pg (28.0-32.0); Mean Corpuscular Hgb Conc. 33.9 g/dL (32.0-36.0); Mean Corpuscular Volume 83.1 fL (80.0-100.0); Monocytes # (auto) 0.5 10 ^3/uL (0-1.3); Monocytes % (auto) 4.2 % (0.0-12.0); Neutrophils # (auto) 8.6 10 ^3/uL (1.6-8.6); Neutrophils % (auto) 76.9 % (37.0-80.0); Nucleated Red Blood Cells % 0.1 %; Platelet Count (auto) 263 10^3/uL (140-450); Red Blood Cells 4.39 10^6/uL (4.0-5.20); Red Cell Distribution Width 16.1 % (11.8-14.3); White Blood Cell 11.2 10^3/uL (4.4-10.8)
[2024-09-15 16:36] LABS: Chloride 100 mmol/L (98-107); Potassium 3.8 mmol/L (3.5-5.1); Sodium 140 mmol/L (136-145)
[2024-09-15 16:37] LABS: Anion Gap 8 (5-15); Carbon Dioxide 32 mmol/L (20-31)
[2024-09-15 16:38] LABS: Calcium 10.3 mg/dL (8.7-10.4)
[2024-09-15 16:42] LABS: Glucose 121 mg/dL (74-106)
[2024-09-15 16:43] LABS: BUN/Creatinine Ratio 10.2 (10.0-20.0); Blood Urea Nitrogen 11 mg/dL (9-23)
--- NOTE | 2024-09-15 17:24 | DVH ---
Exam: CT CT AB PEL WO CON-NO ORAL OR IV History: L ided abd pain Comparison Study: None available at time of dictation. TECHNIQUE: Multidetector CT of the abdomen was performed from lung bases to pubic symphysis. Imaging was performed without IV contrast. Axial, coronal and sagittal multiplanar reformats were obtained fr om the axial data set by the technologist. Radiation Dose Information: CT Dose: CTDI volume is 27.88 mGy. Dose-length product is 1337.1 mGy*cm FINDINGS: Evaluation of solid organs is limited due to lack of intravenous contrast use. Findings: Lung Bases: No acute or significant lung base finding. Normal heart size. No pleural or pericardial effusion. Liver: The liver is normal in size. No focal lesions. Gallbladder and Biliary Tree: Unremarkable Spleen: Unremarkable Pancreas: The pancreas is grossly normal in appearance. Adrenal Glands: Unremarkable Kidneys: Kidneys are grossly normal without calculi or hydronephrosis. Bladder: Grossly unremarkable for degree of distention. Bowel: The stomach is grossly normal in appearance. Small bowel and colon are normal in caliber and d istribution. The appendix is not visualized; however, no secondary findings of acute appendicitis id entified. Ascites: Absent Lymphadenopathy: No mesenteric, retroperitoneal or periportal lymphadenopathy. Abdominal Wall and Mesentery: Unremarkable. Vasculature: The visualized abdominal aorta is normal in size and caliber. Evaluation of abdominal a nd pelvic vessels is limited due to lack of intravenous contrast. IVC filter in place. Pelvic Organs: IUD in the uterus. Musculoskeletal: No aggressive focal bony lesions, acute fractures or dislocation. Soft tissues: Unremarkable IMPRESSION: 1. IVC filter in place 2. IUD in the uterus. 3. Gallbladder contracted. 4. No findings of bowel obstruction. 5. No nephrolithiasis or hydronephrosis. 6. No bladder calculi. Radiation optimization: All CT scans at this facility use at least one of these dose optimization te chniques: automated exposure control mA and/or kV adjustment per patient size (includes targeted exa ms where dose is matched to clinical indication) or iterative reconstruction.
[2024-09-15] MEDS: ONDANSETRON HCL 4 MG/2 ML VIAL IV ONE ×2 (17:55→21:30)
[2024-09-15] MEDS: cefTRIAXone 1GM/50ML D5W 50 ML IV ONE (17:55)
[2024-09-15] MEDS: MORPHINE SULFATE 4 MG/ML SYR/VIAL IV ONE ×2 (17:56→19:33)
[2024-09-15] MEDS ORDERED: CEPH500C PO (19:04)
[2024-09-15] MEDS ORDERED: ZOFR4T PO (19:04)
[2024-09-15] MEDS ORDERED: IBUP-1455 PO (19:04)
[2024-09-15] MEDS ORDERED: ACET-1304 PO (19:04)
[2024-09-15] MEDS: HYDROmorphone HCL 2 MG/ML VL/or syr IV ONE (21:43)
[2024-09-15] MEDS: SUCRALFATE 1 GM/10 ML ORAL SUSP PO ONE (21:49)
[2024-09-16] VITALS (10 sets, daily range): BP systolic 87–101; BP diastolic 38–51; PULSE 61–73; RESP 14–22; TEMP 97.5–98.5; O2SAT 93–100
[2024-09-16] MEDS: SODIUM CHLORIDE 0.9% 1,000 ML IV STA (02:36)
[2024-09-16] MEDS ORDERED: ERGOCALCIFEROL 50,000 UNIT(1.25MG) CAP PO SCH (05:15)
[2024-09-16] MEDS ORDERED: ONDANSETRON ODT 4 MG TAB PO PRN (05:15)
[2024-09-16] MEDS ORDERED: TEMAZEPAM 15 MG CAP PO PRN (05:15)
[2024-09-16] MEDS ORDERED: LORazepam 0.5 MG TAB PO PRN (05:15)
[2024-09-16] MEDS ORDERED: MORPHINE SULFATE INJ 2 MG/ml SYRG IV PRN (05:15)
[2024-09-16] MEDS ORDERED: ONDANSETRON HCL 4 MG/2 ML VIAL IV PRN (05:15)
[2024-09-16] MEDS ORDERED: DEXTROSE (50%) 50ML SYRG IV PRN (05:15)
[2024-09-16] MEDS ORDERED: MAALOX PLUS or MAALOX 30 ML PO PRN (05:15)
[2024-09-16] MEDS ORDERED: ACETAMINOPHEN 325 MG TAB PO PRN (05:15)
--- NOTE | 2024-09-16 05:38 | DVHHP2 ---
History of Present Illness Reason for Visit: abdominal pain History of Present Illness 49 yo with abdominal pain and frequency comes to the ed for pain in the stomach with no improvement and stating intractable pain patient was recommended for admission for the ed for management Renal/: UTI Review of Systems Constitutional: Yes: Fever; No: Chills, Sweats, Weakness, Malaise, Other Eyes: No: Pain, Vision change, Conjunctivae inflammation, Eyelid inflammation, Other, Redness ENT: No: Ear pain, Ear discharge, Nose pain, Nose discharge, Nose congestion, Mouth pain, Mouth swelling, Throat pain, Throat swelling, Other Respiratory: No: Cough, Dry, Shortness of breath, SOB with excertion, Wheezing, Hemoptysis, Pleuritic Pain, Sputum, Wheezing, Other Cardiovascular: No: Chest Pain, Palpitations, Orthopnea, Paroxysmal Noc. Dyspnea, Edema, Lt Headedness, Other Gastrointestinal: Abdominal Pain; No: Nausea, Vomiting, Diarrhea, Constipation, Melena, Hematochezia, Other Genitourinary: No Dysuria, No Frequency, No Incontinence, No Hematuria, No Retention, No Other Musculoskeletal: No: other, neck pain, shoulder pain, arm pain, back pain, hand pain, leg pain, foot pain Skin: No: Rash, Lesions, Jaundice, Bruising, Other Neurological: No: Weakness, Numbness, Incoordination, Change in speech, Confusion, Seizures, Other Allergies: Coded Allergies: NO KNOWN ALLERGIES (Unverified , 05/13/14) Medications Current Medications Medications Dose Ordered Sig/Nurys Route Start Time Stop Time Status Last Admin Dose Admin Ceftriaxone Sodium 50 ml @ 100 mls/hr DAILY IV 09/16/24 10:00 UNV Sodium Chloride 1,000 ml @ 60 mls/hr [id number] IV 09/16/24 05:15 UNV Lorazepam 0.5 mg Q6HP PRN PO 09/16/24 05:15 UNV Al Hydrox/Mg Hydrox/Simethicone 30 ml Q6HP PRN PO 09/16/24 05:15 UNV Docusate Sodium 100 mg BIDPRN PRN PO 09/16/24 05:15 UNV Acetaminophen 650 mg Q6HP PRN PO 09/16/24 05:15 UNV Temazepam 15 mg QHSP PRN PO 09/16/24 05:15 UNV Acetaminophen/ Hydrocodone Bitart 1 tab Q4HP PRN PO 09/16/24 05:15 UNV Ondansetron HCl 4 mg Q4HP PRN IV 09/16/24 05:15 UNV Morphine Sulfate 2 mg Q4HPRN PRN IV 09/16/24 05:15 UNV Diagnostic Test (Pha) 1 strip IQ4HR 09/16/24 08:00 UNV Insulin Human Regular IQ4HR SC 09/16/24 08:00 UNV Dextrose 50 ml UD PRN IV 09/16/24 05:15 UNV Aspirin 81 mg DAILY PO 09/16/24 10:00 UNV Ergocalciferol 50,000 unit QWEEKLY PO 09/16/24 05:15 UNV Fluoxetine HCl 40 mg DAILY PO 09/16/24 10:00 UNV Ondansetron HCl 4 mg TID PRN PO 09/16/24 05:15 UNV Patient Own Medication 35 unit QHSP SC 09/16/24 22:00 UNV Patient Own Medication 175 mcg QAM PO 09/16/24 07:00 UNV Exam Vital Signs Vital Signs Date Time Temp Pulse Resp B/P (MAP) Pulse Ox O2 Delivery O2 Flow Rate FiO2 09/16/24 03:23 70 17 100 Nasal Cannula* 3 32 09/16/24 03:19 96/57 (70) 09/16/24 02:28 97.4 97.4 General Appearance: Oriented X3 HEENT: Atraumatic, PERRLA Respiratory: Clear to auscultation, Normal air movement Cardiovascular: Regular rate, Normal S1, Normal S2 Abdominal: Normal bowel sounds, Soft, No tenderness Extremities: No clubbing, No cyanosis, No edema Skin: No rashes, No breakdown Neuro: Normal gait, Normal speech Psych/Mental Status: Mood NL Labs/Xrays Labs Test 09/16/24 00:54 09/15/24 16:19 09/15/24 15:32 Range/Units POC Glucose 142 H 70-106 mg/dl White Blood Count 11.2 H 4.4-10.8 10^3/uL Red Blood Count 4.39 4.0-5.20 10^6/uL Hemoglobin 12.4 12.2-16.2 g/dL Hematocrit 36.5 36.0-46.0 % Mean Corpuscular Volume 83.1 80.0-100.0 fL Mean Corpuscular Hemoglobin 28.2 28.0-32.0 pg Mean Corpuscular Hemoglobin Concent 33.9 32.0-36.0 g/dL Red Cell Distribution Width 16.1 H 11.8-14.3 % Platelet Count 263 140-450 10^3/uL Mean Platelet Volume 8.4 6.9-10.8 fL Neutrophils (%) (Auto) 76.9 37.0-80.0 % Lymphocytes (%) (Auto) 16.1 10.0-50.0 % Monocytes (%) (Auto) 4.2 0.0-12.0 % Eosinophils (%) (Auto) 2.3 0.0-7.0 % Basophils (%) (Auto) 0.5 0.0-2.0 % Neutrophils # (Auto) 8.6 1.6-8.6 10 ^3/uL Lymphocytes # (Auto) 1.8 0.4-5.4 10 ^3/uL Monocytes # (Auto) 0.5 0-1.3 10 ^3/uL Eosinophils # (Auto) 0.3 0-0.8 10 ^3/uL Basophils # (Auto) 0.1 0-0.2 10 ^3/uL Nucleated Red Blood Cells 0.1 % Sodium Level 140 136-145 mmol/L Potassium Level 3.8 3.5-5.1 mmol/L Chloride Level 100 98-107 mmol/L Carbon Dioxide Level 32 H 20-31 mmol/L Anion Gap 8 5-15 Blood Urea Nitrogen 11 9-23 mg/dL Creatinine 1.08 H 0.550-1.02 mg/dL Glomerular Filtration Rate Calc 63 >90 mL/min BUN/Creatinine Ratio 10.2 10.0-20.0 Serum Glucose 121 H 74-106 mg/dL Lactic Acid Level 1.3 0.4-2.0 mmol/L Calcium Level 10.3 8.7-10.4 mg/dL Beta HCG, Quantitative 0.6 L 1.5-4.2 mIU/mL Urine Color Colorless Yellow Urine Clarity Clear Clear Urine pH 6.0 5.0-9.0 Urine Specific [place] 1.012 1.001-1.035 Urine Protein Negative Negative Urine Ketones Negative Negative Urine Blood Trace H Negative /uL Urine Nitrite Negative Negative Urine Bilirubin Negative Negative Urine Urobilinogen Normal Negative mg/dL Urine Leukocyte Esterase 3+ Negative /uL Urine RBC 5 0 - 4 /hpf Urine WBC 66 0 - 5 /hpf Urine Squamous Epithelial Cells Few <5 /hpf Urine Bacteria None seen None Seen /hpf Urine Glucose Normal Normal mg/dL Assessment/Plan Assessment/Plan Admit to Med/Surge UTI IV hydration IV abx prn pain meds abdominal pain DM uncontrolled iss Multiple chronic issues continue with home medications Plan discussed with: Patient My Orders Orders - DENNIS YAÑEZ MD Procedure Category Date Status Time Ceftriaxone 1gm/50ml PHA 09/16/24 Logged D5w (Rocephin) 10:00 Admit ADMIT 09/16/24 Transmitted 05:11 Code Status CODE 09/16/24 Transmitted 05:11 Vital Signs [facility] 09/16/24 In Process 05:11 Review Orders With [facility] 09/16/24 In Process Adm.Md 05:11 Regular Diet DIET 09/16/24 Transmitted Breakfast Sodium Chloride 0.9% PHA 09/16/24 Logged 05:15 Lorazepam Tablet PHA 09/16/24 Logged (Ativan Tablet) 05:15 Alum & Mag PHA 09/16/24 Logged Hydrox-Simethicone 05:15 Docusate Sodium PHA 09/16/24 Logged Capsule (Colace 05:15 Acetaminophen Tablet PHA 09/16/24 Logged (Tylenol Tablet) 05:15 Temazepam (Restoril) PHA 09/16/24 Logged 05:15 Notify Of Changes [facility] 09/16/24 In Process From Base 05:11 Advance Directive [facility] 09/16/24 In Process 05:11 Basic Metabolic Panel LAB 09/16/24 Logged 05:11 Complete Blood Count LAB 09/16/24 Logged 05:11 Patient Condition ORDERS 09/16/24 Transmitted 05:11 Allergies [facility] 09/16/24 In Process 05:11 Hydrocodone-Acet PHA 09/16/24 Logged 5/325mg Tab ([place] 05:15 Ondansetron Hcl PHA 09/16/24 Logged (Zofran) 05:15 Morphine Sulfate PHA 09/16/24 Logged Injection 05:15 Notifnadine Benitez Of Changes [facility] 09/16/24 In Process From Base 05:11 Oxygen By Nasal RT 09/16/24 Transmitted Cannula 05:11 Glucose Blood PHA 09/16/24 Logged (Accu-Chek Comfort 08:00 Insulin R (Human) PHA 09/16/24 Logged (Insulin R) 08:00 Dextrose 50% Syringe PHA 09/16/24 Logged 05:15 Aspirin Enteric PHA 09/16/24 Logged Coated Tablet 10:00 Ergocalciferol PHA 09/16/24 Logged (Vitamin D 50,000 05:15 Fluoxetine Capsule PHA 09/16/24 Logged (Prozac Capsule) 10:00 Ondansetron Po PHA 09/16/24 Logged (Zofran Po) 05:15 (Nf) Insulin Glargine PHA 09/16/24 Logged (Basaglar Kwikpen) 22:00 (Nf) Levothyroxine PHA 09/16/24 Logged Sodium 07:00 Problem List: (1) Uncontrolled diabetes mellitus (2) UTI (urinary tract infection) Date of Service: Sep 16, 2024 Billing Provider: DENNIS YAÑEZ MD Common Visit Codes: [id number] INP/OBS CARE (HIGH) DENNIS YAÑEZ MD Sep 16, 2024 05:38
[2024-09-16 06:07] LABS: Basophils # (auto) 0.1 10 ^3/uL (0-0.2); Basophils % (auto) 0.6 % (0.0-2.0); Eosinophils # (auto) 0.2 10 ^3/uL (0-0.8); Eosinophils % (auto) 2.2 % (0.0-7.0); Hematocrit 33.1 % (36.0-46.0); Hemoglobin 10.8 g/dL (12.2-16.2); Lymphocytes # (auto) 1.9 10 ^3/uL (0.4-5.4); Mean Corpuscular Hemoglobin 27.3 pg (28.0-32.0); Mean Corpuscular Hgb Conc. 32.6 g/dL (32.0-36.0); Mean Corpuscular Volume 83.8 fL (80.0-100.0); Monocytes # (auto) 0.5 10 ^3/uL (0-1.3); Monocytes % (auto) 4.8 % (0.0-12.0); Neutrophils # (auto) 8.5 10 ^3/uL (1.6-8.6); Neutrophils % (auto) 75.4 % (37.0-80.0); Nucleated Red Blood Cells % 0.1 %; Platelet Count (auto) 237 10^3/uL (140-450); Red Blood Cells 3.95 10^6/uL (4.0-5.20); Red Cell Distribution Width 15.6 % (11.8-14.3); White Blood Cell 11.2 10^3/uL (4.4-10.8)
[2024-09-16 06:16] LABS: Chloride 103 mmol/L (98-107); Potassium 3.8 mmol/L (3.5-5.1); Sodium 138 mmol/L (136-145)
[2024-09-16 06:17] LABS: Anion Gap 6 (5-15); Calcium 8.9 mg/dL (8.7-10.4); Carbon Dioxide 29 mmol/L (20-31)
[2024-09-16 06:22] LABS: BUN/Creatinine Ratio 14.3 (10.0-20.0); Blood Urea Nitrogen 12 mg/dL (9-23); Glucose 113 mg/dL (74-106)
[2024-09-16] MEDS ORDERED: PATIENTS OWN MEDICATION (Levothyroxine Sodium 175 MCG) PO SCH (07:00)
[2024-09-16] MEDS: InsuLIN REG 1unit/0.01ml Soln (100units/ml) SC SCH (07:18)
[2024-09-16] MEDS: ACCU-CHEK COMFORT CURVE STRIP VI SCH (07:18)
[2024-09-16] MEDS: SODIUM CHLORIDE 0.9% 1,000 ML IV SCH (07:30)
[2024-09-16] MEDS: LEVOTHYROXINE SODIUM 50 MCG TAB PO SCH (08:00)
[2024-09-16] MEDS: ASPirin-EC 81 mg tab PO SCH (10:00)
[2024-09-16 10:06] LABS: Free Thyroxine Index 3.5 (1.2-4.9); Thyroxine (T4) 12.4 ug/dL (4.5-12.0)
[2024-09-16] MEDS ORDERED: HYDR-4798 PO (10:33)
[2024-09-16] MEDS ORDERED: ATOR10TA52 PO (10:37)
[2024-09-16] MEDS ORDERED: AMIT25TA20 PO (10:37)
[2024-09-16] MEDS ORDERED: FINE20TA PO (10:37)
[2024-09-16] MEDS ORDERED: LISI10TA34 PO (10:37)
[2024-09-16] MEDS: FLUoxetine HCL 20 MG CAP PO SCH (10:40)
[2024-09-16] MEDS: HYDROcodone-ACET 5/325MG TAB PO PRN ×2 (10:41→21:43)
--- NOTE | 2024-09-16 13:56 | DVHPN2 ---
Subjective denies any pain now/ghad suprapubic pain followed by lt flank pain Changes from previous H/P or p: No Changes Eyes: No Pain, No Vision change, No Conjunctivae inflammation, No Eyelid inflammation, No Other, No Redness ENT: No Ear pain, No Ear discharge, No Nose pain, No Nose discharge, No Nose congestion, No Mouth pain, No Mouth swelling, No Throat pain, No Throat swelling, No Other Cardiovascular: No Chest Pain, No Palpitations, No Orthopnea, No Paroxysmal Noc. Dyspnea, No Edema, No Lt Headedness, No Other Respiratory: No Cough, No Dry, No Shortness of breath, No SOB with excertion, No Wheezing, No Hemoptysis, No Pleuritic Pain, No Sputum, No Other Gastrointestinal: No Nausea, No Vomiting; Abdominal Pain; No Diarrhea, No Constipation, No Melena, No Hematochezia, No Other Genitourinary: No Dysuria, No Frequency, No Incontinence, No Hematuria, No Retention, No Other Musculoskeletal: No other, No neck pain, No shoulder pain, No arm pain, No back pain, No hand pain, No leg pain, No foot pain Skin: No Rash, No Lesions, No Jaundice, No Bruising, No Other Objective Vitals Vital Signs Date Time Temp Pulse Resp B/P (MAP) Pulse Ox O2 Delivery O2 Flow Rate FiO2 09/16/24 13:26 98.2 65 17 97/49 (65) 97 98.2 09/16/24 07:37 Nasal Cannula* 3 32 Intake/Output Intake and Output 09/16/24 07:00 Intake Total 1050 ml Balance 1050 ml Intake IV Total 1050 ml General Appearance: Alert, Oriented X3, Cooperative, No acute distress Lungs: Clear to auscultation Cardiovascular: Regular rate, Normal S1, Normal S2 Abdomen: Normal bowel sounds, Soft, No tenderness, No hepatospenomegaly Musculoskeletal: Normal sensory function, Normal motor function Extremities: No edema Neuro: Normal speech, Strength at 5/5 X4 ext Medications Current Medications Medications Dose Ordered Sig/Nurys Route Start Time Stop Time Status Last Admin Dose Admin Ceftriaxone Sodium 50 ml @ 100 mls/hr DAILY@1800 IV 09/16/24 18:00 Sodium Chloride 1,000 ml @ 60 mls/hr [id number] IV 09/16/24 05:15 09/16/24 07:30 60 MLS/HR Docusate Sodium 100 mg BIDPRN PRN PO 09/16/24 05:15 Acetaminophen 650 mg Q6HP PRN PO 09/16/24 05:15 Temazepam 15 mg QHSP PRN PO 09/16/24 05:15 Diagnostic Test (Pha) 1 strip IQ4HR 09/16/24 08:00 09/16/24 11:48 1 STRIP Insulin Human Regular IQ4HR SC 09/16/24 08:00 Dextrose 50 ml UD PRN IV 09/16/24 05:15 Aspirin 81 mg DAILY PO 09/16/24 10:00 Ergocalciferol 50,000 unit QWEEKLY PO 09/16/24 05:15 Fluoxetine HCl 40 mg DAILY PO 09/16/24 10:00 09/16/24 10:40 40 MG Patient Own Medication 35 unit QHSP SC 09/16/24 22:00 UNV Patient Own Medication 175 mcg QAM PO 09/16/24 07:00 UNV Levothyroxine Sodium 175 mcg DAILY@0700 PO 09/16/24 07:00 09/16/24 08:00 175 MCG Insulin Glargine 35 units HS SC 09/16/24 22:00 Laboratory Results Laboratory Tests 09/16/24 05:53 Chemistry Test 09/15/24 16:19 09/16/24 05:53 Calcium Level 10.3 mg/dL (8.7-10.4) 8.9 mg/dL (8.7-10.4) Urinalysis Test 09/15/24 15:32 Urine Color Colorless (Yellow) Urine Clarity Clear (Clear) Urine pH 6.0 (5.0-9.0) Urine Specific [place] 1.012 (1.001-1.035) Urine Protein Negative (Negative) Urine Ketones Negative (Negative) Urine Blood Trace /uL (Negative) H Urine Nitrite Negative (Negative) Urine Bilirubin Negative (Negative) Urine Urobilinogen Normal mg/dL (Negative) Urine Leukocyte Esterase 3+ /uL (Negative) Urine RBC 5 /hpf (0 - 4) Urine WBC 66 /hpf (0 - 5) Urine Squamous Epithelial Cells Few /hpf (<5) Urine Bacteria None seen /hpf (None Seen) Urine Glucose Normal mg/dL (Normal) Microbiology Microbiology Date/Time Source Procedure Growth Status 09/15/24 15:32 Voided Urine Urine Culture - Preliminary Resulted Assessment/Plan Assessment/Plan uti/pyelonephtritis dm chronic respiratory failure due to pulmonary htn pulmonary ht secondary to massive pe in 2013 off of anticoagulation for 10 yrs per pt/only on o2 at 4l/min states home bp 110-140 /80 at baseline/somedays 90s Plan discussed with: Patient, Other My Orders Orders - JASMINE PEREZ MD Procedure Category Date Status Time Complete Blood Count LAB 09/17/24 Verified 04:00 Basic Metabolic Panel LAB 09/17/24 Verified 04:00 Date of Service: Sep 16, 2024 Billing Provider: JASMINE PEREZ MD Common Visit Codes: [id number] INP/OBS CARE(MOD) JASMINE PEREZ MD Sep 16, 2024 13:56
[2024-09-16] MEDS: cefTRIAXone 1GM/50ML D5W 50 ML IV SCH (17:25)
[2024-09-16] MEDS: DOCUSATE SOD 100 MG CAP PO PRN (17:36)
[2024-09-16] MEDS: AMITRIPTYLINE HCL 25 MG TAB PO SCH (21:42)
[2024-09-16] MEDS: INSULIN LANTUS (GLARGINE) 1 /0.01ml (100units/ml) SC SCH (21:50)
[2024-09-16] MEDS ORDERED: INSULIN GLARGINE 35 UNIT SC SCH (22:00)
[2024-09-17] VITALS (8 sets, daily range): BP systolic 96–149; BP diastolic 40–90; PULSE 66–69; RESP 13–18; TEMP 97.4–98.1; O2SAT 94–99
[2024-09-17 07:23] LABS: Basophils # (auto) 0 10 ^3/uL (0-0.2); Basophils % (auto) 0.5 % (0.0-2.0); Eosinophils # (auto) 0.3 10 ^3/uL (0-0.8); Eosinophils % (auto) 3.2 % (0.0-7.0); Hematocrit 32.6 % (36.0-46.0); Hemoglobin 10.7 g/dL (12.2-16.2); Lymphocytes # (auto) 2.2 10 ^3/uL (0.4-5.4); Lymphocytes % (auto) 25.6 % (10.0-50.0); Mean Corpuscular Hemoglobin 27.7 pg (28.0-32.0); Mean Corpuscular Hgb Conc. 32.7 g/dL (32.0-36.0); Mean Corpuscular Volume 84.7 fL (80.0-100.0); Monocytes # (auto) 0.5 10 ^3/uL (0-1.3); Neutrophils # (auto) 5.5 10 ^3/uL (1.6-8.6); Neutrophils % (auto) 64.7 % (37.0-80.0); Nucleated Red Blood Cells % 0.1 %; Platelet Count (auto) 221 10^3/uL (140-450); Red Blood Cells 3.84 10^6/uL (4.0-5.20); Red Cell Distribution Width 15.6 % (11.8-14.3); White Blood Cell 8.4 10^3/uL (4.4-10.8)
[2024-09-17 07:36] LABS: Chloride 105 mmol/L (98-107); Sodium 140 mmol/L (136-145)
[2024-09-17 07:37] LABS: Anion Gap 6 (5-15); Calcium 8.7 mg/dL (8.7-10.4); Carbon Dioxide 29 mmol/L (20-31)
[2024-09-17 07:42] LABS: BUN/Creatinine Ratio 20.8 (10.0-20.0); Blood Urea Nitrogen 15 mg/dL (9-23); Glucose 87 mg/dL (74-106)
[2024-09-17] MEDS ORDERED: CEPH500C PO (15:01)
[2024-09-17] MEDS ORDERED: CIPR500T4 PO (15:04)
--- NOTE | 2024-09-17 15:06 | DVHDS2 ---
Discharge Summary Date of Admission Sep 16, 2024 at 05:11 Date of Discharge: Sep 17, 2024 Labs/Diagnostic Data: Laboratory Results Test 09/17/24 12:20 09/17/24 05:56 09/15/24 16:19 09/15/24 15:32 POC Glucose 91 mg/dl (70-106) White Blood Count 8.4 10^3/uL (4.4-10.8) Red Blood Count 3.84 10^6/uL (4.0-5.20) Hemoglobin 10.7 g/dL (12.2-16.2) Hematocrit 32.6 % (36.0-46.0) Mean Corpuscular Volume 84.7 fL (80.0-100.0) Mean Corpuscular Hemoglobin 27.7 pg (28.0-32.0) Mean Corpuscular Hemoglobin Concent 32.7 g/dL (32.0-36.0) Red Cell Distribution Width 15.6 % (11.8-14.3) Platelet Count 221 10^3/uL (140-450) Mean Platelet Volume 8.6 fL (6.9-10.8) Neutrophils (%) (Auto) 64.7 % (37.0-80.0) Lymphocytes (%) (Auto) 25.6 % (10.0-50.0) Monocytes (%) (Auto) 6.0 % (0.0-12.0) Eosinophils (%) (Auto) 3.2 % (0.0-7.0) Basophils (%) (Auto) 0.5 % (0.0-2.0) Neutrophils # (Auto) 5.5 10 ^3/uL (1.6-8.6) Lymphocytes # (Auto) 2.2 10 ^3/uL (0.4-5.4) Monocytes # (Auto) 0.5 10 ^3/uL (0-1.3) Eosinophils # (Auto) 0.3 10 ^3/uL (0-0.8) Basophils # (Auto) 0 10 ^3/uL (0-0.2) Nucleated Red Blood Cells 0.1 % Sodium Level 140 mmol/L (136-145) Potassium Level 4.0 mmol/L (3.5-5.1) Chloride Level 105 mmol/L (98-107) Carbon Dioxide Level 29 mmol/L (20-31) Anion Gap 6 (5-15) Blood Urea Nitrogen 15 mg/dL (9-23) Creatinine 0.72 mg/dL (0.550-1.02) Glomerular Filtration Rate Calc 103 mL/min (>90) BUN/Creatinine Ratio 20.8 (10.0-20.0) Serum Glucose 87 mg/dL (74-106) Calcium Level 8.7 mg/dL (8.7-10.4) Lactic Acid Level 1.3 mmol/L (0.4-2.0) Free Thyroxine Index 3.5 (1.2-4.9) Thyroxine (T4) 12.4 ug/dL (4.5-12.0) Triiodothyronine (T3) Uptake 28 % (24-39) Beta HCG, Quantitative 0.6 mIU/mL (1.5-4.2) Urine Color Colorless (Yellow) Urine Clarity Clear (Clear) Urine pH 6.0 (5.0-9.0) Urine Specific [place] 1.012 (1.001-1.035) Urine Protein Negative (Negative) Urine Ketones Negative (Negative) Urine Blood Trace /uL (Negative) Urine Nitrite Negative (Negative) Urine Bilirubin Negative (Negative) Urine Urobilinogen Normal mg/dL (Negative) Urine Leukocyte Esterase 3+ /uL (Negative) Urine RBC 5 /hpf (0 - 4) Urine WBC 66 /hpf (0 - 5) Urine Squamous Epithelial Cells Few /hpf (<5) Urine Bacteria None seen /hpf (None Seen) Urine Glucose Normal mg/dL (Normal) Other Laboratory Tests 09/17/24 05:56 Brief Hx & Hospital Course: Final diagnoses: UTI with Klebsiella pneumoniae Left pyelonephritis Obstructive sleep apnea Pulmonary hypertension Morbid obesity Diabetes 49-year-old female who was admitted for left flank and lower abdominal pain and was found to have UTI Culture showed Klebsiella pneumoniae sensitive to most antibiotics He was given Rocephin IV here She will be discharged home on Cipro for 5 more days Continue the other home medications Follow up with the primary care physician in 1-2 weeks Condition at Discharge: Stable Final Diagnosis/Problems List UTI Left pyelonephritis Obstructive sleep apnea Pulmonary hypertension Morbid obesity Diabetes Discharge Disposition: Home SNF Discharge Will this Physician continue t: No Discharge Instruct/Medications Diet: Cardiac 2g Na,low cholest Activity: No Restrictions, As Tolerated Follow Up/Referral: PCP as soon as possible Medications: Cipro 500 mg twice a day for 5 days Discharge Statement: "Patient was advised to return to the ER or call 911 if any headaches, dizziness, shortness of breath, chest pain, abdominal pain, bleeding, fevers, or worsening of medical condition. Patient was counseled about treatment plan, medications, possible side effects, patientverbalized understanding. All questions were answered to the best of my ability. This discharge took greater then 30 minutes in planning, reviewing documentation, counseling the patient, and discussing with other team members." ASSESSMENT ASSESSMENT Assessment UTI Left pyelonephritis Obstructive sleep apnea Pulmonary hypertension Morbid obesity Diabetes Date of Service: Sep 17, 2024 Billing Provider: NORMA RAMIREZ MD Common Visit Codes: [id number] DISCH DAY >30min NORMA RAMIREZ MD Sep 17, 2024 15:05
== END 2024-09-17 17:30 | disposition home or self-care (01) | DRG 690 ==
LOC: ER 15:13 → OVERFLOW 09-16 05:11 → EAST 09-16 09:25
PROVIDERS: ADMIT Hospitalist; ATTEND Internal Medicine Geriatric Medicine
PROC: 5A09357 Assistance with Respiratory Ventilation, Less than 24 Consecutive Hours, Continuous Positive Airway Pressure (ICD-10-PCS; principal; 2024-09-16)
DX: N12 Tubulo-interstitial nephritis, not specified as acute or chronic (principal); J96.10 Chronic respiratory failure, unspecified whether with hypoxia or hypercapnia; Z68.42 Body mass index [BMI] 45.0-49.9, adult; I27.20 Pulmonary hypertension, unspecified; G47.33 Obstructive sleep apnea (adult) (pediatric); E66.01 Morbid (severe) obesity due to excess calories; B96.1 Klebsiella pneumoniae [K. pneumoniae] as the cause of diseases classified elsewhere; E78.5 Hyperlipidemia, unspecified; I10 Essential (primary) hypertension; E11.9 Type 2 diabetes mellitus without complications; Z99.81 Dependence on supplemental oxygen; Z85.59 Personal history of malignant neoplasm of other urinary tract organ; Z86.711 Personal history of pulmonary embolism; Z86.73 Personal history of transient ischemic attack (TIA), and cerebral infarction without residual deficits; Z90.710 Acquired absence of both cervix and uterus; Z87.891 Personal history of nicotine dependence; Z83.3 Family history of diabetes mellitus; Z82.5 Family history of asthma and other chronic lower respiratory diseases; Z82.49 Family history of ischemic heart disease and other diseases of the circulatory system; Z79.4 Long term (current) use of insulin
CPT/HCPCS: 36415; 74176; 80048; 81001; 82962; 83605; 84443; 84702; 85025; 87086; 87088; 87186; 94660; G0378; J1815; J2405

== ENCOUNTER 2025-04-09 10:09 | Inpatient (IN) | payer OTHER, MEDICAID ==
[~2025-04-09] VITALS: Ht 154.9 cm; Wt 168.8 kg
[~2025-04-09 10:09] MED LIST changes: +ACET-1304 PO; +ATOR10TA52 PO; +CIPR500T4 PO; +FINE20TA PO; +IBUP-1455 PO; -LEVO175T2 PO; +LISI10TA34 PO; -NITR-87 PO; -OXYC325T14 PO; -TIRZ5INJ SC; +ZOFR4T PO
--- NOTE | 2025-04-09 10:28 | ECG ---
[facility] Test Date: 2025-04-09 Test Time: 10:16:09 Pat Name: DUSTY FERRARI Department: ER Room: [address] [place] [address] Gender: F Log Check Scaler: TRACEY : 1975 Requested By: HAROLDO GIBSON Order Number: [id number] Reading MD: Romaine Avalos Measurements Intervals [place] Rate: 77 P: -16 CA: 99 QRS: 26 QRSD: 110 T: 56 QT: 426 QTc: 483 Interpretive Statements Sinus rhythm Short CA interval Low voltage, precordial leads Baseline wander in lead(s) V1,V2,V5 Electronically Signed On 04-10-2025 21:08:26 PDT by Romaine Avalos Please click the below link to view image of tracing.
--- NOTE | 2025-04-09 10:41 | ED.PDOC ---
HPI Comments HPI: Poor Historian. Patient is not take any aspirin or any blood thinners. Diagnosis of PE was in 2013. Patient is in remission from both thyroid cancer and uterine cancer. Patient is on 3 L nasal cannula supplemental oxygen at baseline. HPI: 49y F who presents to the ED for chief complaint of chest pain. - pt states she has been having chest pain since last night while she was driving - pt states her pain is L sided, constant, dull and sharp in nature,with noted exacerbation of pain with leaning forward, and no relieving factors - pt states her pain radiates to the L clavicle but only with leaning forward - pt otherwise has associated shortness of breath but otherwise denies any other symptoms - pt states she is currently on 3 L via nc in the ED - pt otherwise denies any other symptoms at this time. - pt has history of PE in 2013 but does not take blood thinner at this time Past Medical history: PE, DM, hyperthyroidism, TIA, thyroid CA, uterine CA, pulmonary HTN Past Surgical history: unknown Medications: unknown Allergies: nkda Social History: endorses ETOH, denies tobacco use, denies drug use REVIEW OF SYSTEMS: CONSTITUTIONAL: Denies acute: fever, diaphoresis, chills, HEAD: Denies acute: headache, photophobia Eyes: Denies acute: Double vision, vision loss, eye pain, eye discharge. EARS: Denies acute: tinnitus, hearing loss, ear discharge, ear pain, THROAT: Denies acute: sore throat, swelling, difficulty swallowing , pain with swallowing, change in voice. NECK: Denies acute: neck pain, neck swelling, stiff neck. HEART: Denies acute : palpitations, LUNGS: Denies acute: wheezing, cough, hemoptysis ABDOMEN: Denies acute: abdominal pain, Nausea, Vomiting, diarrhea, melena , hematemesis, hematochezia SKIN: Denies acute: rash, redness, lesions, itchiness. EXTREMITIES: Denies acute: calf pain, numbness, tingling, weakness, denies pain in extremity. Denies acute: Low back pain. Neuro: Denies acute: focal neurological deficit, motor or sensory focal neurological deficit, tremors, seizure like activity, confusion, dizziness, change in mental status, loss of bowel or bladder function, cauda equina like symptoms. : Denies acute: dysuria, hematuria, flank pain, increase in urinary frequency. PSYCH: Denies acute: hallucination, suicidal ideation, homicidal ideation. FEMALE: Denies acute: abnormal vaginal bleeding, foul odor, unusual discharge. PHYSICAL EXAM: General: ----mild to moderate----acute distress, awake and alert. Head: normocephalic, atraumatic. Neck: supple, trachea is midline, no swelling. Throat: Normal phonation. Eyes:, no erythema, no purulent discharge, no proptosis, no icterus. Heart: regular rate, regular rhythm, no significant murmur appreciated. Lungs: no apparent respiratory distress, Able to speak in full sentences. No wheezing, no rhonchi, no crackles. No stridors Clear to auscultation bilaterally. Abdomen: non tender to palpation, non distended, soft, no guarding, no rebound, + bowel sounds. Morbidly obese. Neuro: Awake, Alert, oriented to name, self, situation, follows commands GCS=15. Speech is normal. Skin: no petechia, no purpura, no cyanosis, non-pale, not jaundice. Lower extremities: --no - Pitting edema no deformity, no focal swelling, no calf TTP. Makes eye contact. moves all four extremities. Face: no apparent facial droop. Ambulating in the ED independently. ED COURSE: Chief Complaint: Chest Pain Time Seen by MD: 10:19 Primary Care Provider: SIDRA Reviewed Notes: Nurses Notes, Allergies Allergies: Coded Allergies: NO KNOWN ALLERGIES (Unverified , 05/13/14) Home Meds Active Scripts Ondansetron Odt 4MG Tab (ZOFRAN PO) 4 Mg Tb, 4 MG PO TID PRN, #30 TAB prn n/v ODT TAB-DISSOLVE IN MOUTH, THEN SWALLOW Prov:JUMANA ROWLAND MD 09/15/24 Ibuprofen Micronized (Ibuprofen) 800 Mg Tab, 800 MG PO Q8HP PRN, #30 TAB prn fever or pain Prov:JUMANA ROWLAND MD 09/15/24 Acetaminophen (Tylenol Extra Strength) 500 Mg Tab, 1000 MG PO Q6HP PRN, #30 TAB prn fever or pain Prov:JUMANA ROWLAND MD 09/15/24 Aspirin (MICHELLE ASPIRIN EC LOW DOSE) 81 Mg Tab, 1 TAB PO DAILY, #30 TAB Prov:WILSON LINDSEY MD 03/20/21 Reported Medications Metformin Hydrochloride (Metformin Hcl) 1,000 Mg Tab, 1 TAB PO BID for 90 Days, #180 09/17/24 Hydrocodone-Acetaminophen (Hydrocodone Bitartrate/AC 10-325 mg) 1 Tab Tab, 1 TAB PO Q6HR PRN for PAIN for 30 Days, #120 09/17/24 Gabapentin (Gabapentin) 100 Mg Cap, 1 CAP PO TID for 60 Days, #180 09/17/24 Insulin Glargine (Basaglar Kwikpen) 100 Unit/Ml Inj, 30 UNIT SC QPM for 30 Days, #9 09/17/24 Tirzepatide (Mounjaro) 12.5 Mg/0.5 Ml Inj, 12.5 MG SC QWEEKLY for 28 Days, #2 09/17/24 Amitriptyline HCl (Amitriptyline HCl) 10 Mg Tab, 3 TAB PO HS for 30 Days, #90 09/17/24 Finerenone (Kerendia) 20 Mg Tab, 20 MG PO DAILY, TAB 09/16/24 Atorvastatin Calcium (ATORVASTATIN CALCIUM) 10 Mg Tab, 1 TAB PO DAILY, #30 TAB 5 Refills 09/16/24 Lisinopril (Lisinopril) 10 Mg Tab, 10 MG PO DAILY for 30 Days, MG 09/16/24 Levothyroxine Sodium (Levothyroxine Sodium) 175 Mcg Tab, 200 MCG PO QAM for 30 Days, MCG 04/01/23 Ergocalciferol (VITAMIN D 81067 UNIT) 50,000 [place], [address] UNIT PO QWEEKLY, CAP 03/18/21 Albuterol Sulfate (VENTOLIN MDI) 90 Mcg Ih, 90 MCG IN Q6HP PRN for SHORTNESS OF BREATH for 30 Days, MCG 02/13/20 Fluoxetine Hcl (Fluoxetine Hcl) 20 Mg Cap, 40 MG PO DAILY for 30 Days, MG 10/11/18 Discontinued Scripts Ciprofloxacin Hcl (Ciprofloxacin Hcl) 500 Mg Tab, 1 TAB PO BID, #10 TAB Prov:NORMA RAMIREZ MD 09/17/24 Information Source: Patient Mode of Arrival: Ambulatory Past Medical History PAST MEDICAL HISTORY: Anemia, Cancer, DM, High Lipids, HTN, PE, Thyroid, TIA Surgical History: Hysterectomy PARK RECREATION MANAGER History: No Pertinent PARK RECREATION MANAGER History, Other Family History Family History: Family hx of DM, Family hx of Cancer, Family hx of HTN, Family hx of lung jessica Family History (Other): Asthma Social History Smoker: Quit Greater Than 1 Year Alcohol: Occasionally Drugs: Denies Drug Use Lives In: Home EKG EKG : Pulse Rate (adult): 77 [place]: Normal Cardiac Rhythm: NSR Block: None Hypertrophy: None ST: Normal Was a procedure done? Was a procedure done?: No CP Differential Dx Differential Diagnosis: N/A Differential Diagnosis: Other (Ddx include but not limitied to gastritis, musculoskeletal pain, radiculopathy, atypical chest pain, dissection, aneurysm, ACS, unstable angina, hiatal hernia, GERD, anxiety, costochondritis, PE, pneumothroax, neoplasm, cardiac ischemia, drug abuse, anemia.) X-Ray, Labs, Meds, VS Vital Signs Date Time Temp Pulse Resp B/P (MAP) Pulse Ox O2 Delivery O2 Flow Rate FiO2 04/09/25 13:58 67 18 114/74 (87) 97 04/09/25 11:18 75 04/09/25 11:09 75 18 98 Nasal Cannula 04/09/25 11:09 75 18 112/67 (82) 98 04/09/25 10:45 95 Nasal Cannula* 3 32 04/09/25 10:41 77 04/09/25 10:16 77 04/09/25 10:12 97.7 77 20 117/67 (84) 95 97.7 Lab Test 04/09/25 12:53 04/09/25 11:09 04/09/25 10:14 Range/Units Troponin I High Sensitivity < 3 L < 3 L < 3 L </=34 ng/L White Blood Count 9.8 4.4-10.8 10^3/uL Red Blood Count 4.55 4.0-5.20 10^6/uL Hemoglobin 12.6 12.2-16.2 g/dL Hematocrit 37.6 36.0-46.0 % Mean Corpuscular Volume 82.6 80.0-100.0 fL Mean Corpuscular Hemoglobin 27.7 L 28.0-32.0 pg Mean Corpuscular Hemoglobin Concent 33.5 32.0-36.0 g/dL Red Cell Distribution Width 15.4 H 11.8-14.3 % Platelet Count 268 140-450 10^3/uL Mean Platelet Volume 8.3 6.9-10.8 fL Neutrophils (%) (Auto) 73.0 37.0-80.0 % Lymphocytes (%) (Auto) 19.1 10.0-50.0 % Monocytes (%) (Auto) 5.2 0.0-12.0 % Eosinophils (%) (Auto) 2.1 0.0-7.0 % Basophils (%) (Auto) 0.6 0.0-2.0 % Neutrophils # (Auto) 7.2 1.6-8.6 10 ^3/uL Lymphocytes # (Auto) 1.9 0.4-5.4 10 ^3/uL Monocytes # (Auto) 0.5 0-1.3 10 ^3/uL Eosinophils # (Auto) 0.2 0-0.8 10 ^3/uL Basophils # (Auto) 0.1 0-0.2 10 ^3/uL Nucleated Red Blood Cells 0.0 % D-Dimer, Quantitative 0.47 0.0-0.49 mg/L FEU Sodium Level 140 136-145 mmol/L Potassium Level 3.8 3.5-5.1 mmol/L Chloride Level 102 98-107 mmol/L Carbon Dioxide Level 28 20-31 mmol/L Anion Gap 10 5-15 Blood Urea Nitrogen 13 9-23 mg/dL Creatinine 0.75 0.550-1.02 mg/dL Glomerular Filtration Rate Calc 98 >90 mL/min BUN/Creatinine Ratio 17.3 10.0-20.0 Serum Glucose 126 H 74-106 mg/dL Calcium Level 9.8 8.7-10.4 mg/dL Total Bilirubin 0.3 0.2-1.0 mg/dL Aspartate Amino Transferase (AST) 21 13-40 U/L Alanine Aminotransferase (ALT) 33 7-40 U/L Alkaline Phosphatase 112 46-116 U/L B-Type Natriuretic Peptide 3.56 0-100 pg/mL Total Protein 8.1 5.7-8.2 g/dL Albumin 4.5 3.2-4.8 g/dL [facility] [id number] [address] [address] Ph: [phone] DIAGNOSTIC IMAGING Diagnostic Imaging Report : [id number] Signed PATIENT: DUSTY FERRARI MACCT: [id number] UNIT: [id number] : 1975 LOC: ER ROOM / BED: / AGE / SEX: 49 / F ADM STATUS: REG ER SERVICE 1035 ORDERING PHYSICIAN: ANNETTE ANGEL DO PROCEDURE(s): CXRP - CHEST PORTABLE REASON: cp ORDER NUMBER(s): [id number], ACCESSION NUMBER(s): [id number] EXAM: XY CHEST PORTABLE Indication: cp Technique: Single frontal view of the chest was obtained Comparison: CHEST XRAY 1 VIEW on DOS: 10/11/22, CXR1 on DOS: 10/11/22, CXRP on D OS: 02/24/22, CHEST PORTABLE on DOS: 02/24/22, CHEST PORTABLE on DOS: 08/29/21 FINDINGS: Lines and Tubes: None Lungs: No focal consolidation. Pleura: No effusion. No pneumothorax. Cardiomediastinal contours: Unremarkable Bones: No acute osseous abnormality. IMPRESSION: No acute cardiopulmonary disease. ATED BY: NANCY PRESLEY MD DICTATED DATE/TIME: 04/09/251104 SIGNED BY: NANCY PRESLEY MD SIGNED DATE/TIME: 04/09/251104 CC: Time of 1ST Reevaluation: 00:00 Reevaluation 1ST: Unchanged Patient Education/Counseling: Diagnosis, Treatment Family Education/Counseling: No Family Present Comments Patient presented with the above HPI.--chest pain/dyspnea----workup was initiated. patient was found with the above mentioned diagnosis. the following medications were ordered: please refer to order lists of meds and tests obtained by myself Dr. Angel. Patient ED course and VS have been stabilized. Patient has been reassessed in t ED and remained in a stable condition. Pertinent incidental findings were discussed with the patient and/or family. Patient/family voices understanding and is agreeable with plan. Patient has been observed in the ED adequate length of time to insure improvement/stability. Escalation of care considered: Consideration of escalation to observation or admission Patient was ADMITTED to the medicine team for further evaluation and treatment of their presentation. All the reports of any imaging studies that were ordered by myself were reviewed by myself. Departure 1 Departure Time of Disposition: 00:00 Impression: Primary Impression: Chest pain Disposition: 09 ADMITTED INPATIENT Admit to: Tele Condition: Guarded Discharged With: Self Critical Care Note Critical Care Time?: No Heart Score Heart Score: Heart Score Response (Comments) Value History Moderate Suspicious 1 EKG Normal 0 Age 45-64 1 Risk Factors >3 or Hx ASHD 2 Troponin Normal limit 0 Total 4 I personally scribed for ANNETTE ANGEL DO ([email or web address]) on 04/09/25 at 10:41. Electronically submitted by Nam Soler ([email or web address]). I personally scribed for ANNETTE ANGEL DO ([email or web address]) on 04/09/25 at 11:22. Electronically submitted by Nam Soler ([email or web address]). I personally scribed for ANNETTE ANGEL DO ([email or web address]) on 04/09/25 at 11:36. Electronically submitted by Nam Soler ([email or web address]). ANNETTE ANGEL DO Apr 09, 2025 10:41
[2025-04-09 10:45] VITALS: O2SAT 95
[2025-04-09 11:04] LABS: Basophils # (auto) 0.1 10 ^3/uL (0-0.2); Basophils % (auto) 0.6 % (0.0-2.0); Eosinophils # (auto) 0.2 10 ^3/uL (0-0.8); Eosinophils % (auto) 2.1 % (0.0-7.0); Hematocrit 37.6 % (36.0-46.0); Hemoglobin 12.6 g/dL (12.2-16.2); Lymphocytes # (auto) 1.9 10 ^3/uL (0.4-5.4); Lymphocytes % (auto) 19.1 % (10.0-50.0); Mean Corpuscular Hemoglobin 27.7 pg (28.0-32.0); Mean Corpuscular Hgb Conc. 33.5 g/dL (32.0-36.0); Mean Corpuscular Volume 82.6 fL (80.0-100.0); Monocytes # (auto) 0.5 10 ^3/uL (0-1.3); Monocytes % (auto) 5.2 % (0.0-12.0); Neutrophils # (auto) 7.2 10 ^3/uL (1.6-8.6); Platelet Count (auto) 268 10^3/uL (140-450); Red Blood Cells 4.55 10^6/uL (4.0-5.20); Red Cell Distribution Width 15.4 % (11.8-14.3); White Blood Cell 9.8 10^3/uL (4.4-10.8)
--- NOTE | 2025-04-09 11:08 | DVH ---
EXAM: XY CHEST PORTABLE Indication: cp Technique: Single frontal view of the chest was obtained Comparison: CHEST XRAY 1 VIEW on DOS: 10/11/22, CXR1 on DOS: 10/11/22, CXRP on DOS: 02/24/22, CHEST PO RTABLE on DOS: 02/24/22, CHEST PORTABLE on DOS: 08/29/21 FINDINGS: Lines and Tubes: None Lungs: No focal consolidation. Pleura: No effusion. No pneumothorax. Cardiomediastinal contours: Unremarkable Bones: No acute osseous abnormality. IMPRESSION: No acute cardiopulmonary disease.
[2025-04-09 11:21] LABS: Alanine Aminotransferase 33 U/L (7-40); Albumin 4.5 g/dL (3.2-4.8); Alkaline Phosphatase 112 U/L (46-116); Anion Gap 10 (5-15); Aspartate Aminotransferase 21 U/L (13-40); BUN/Creatinine Ratio 17.3 (10.0-20.0); Blood Urea Nitrogen 13 mg/dL (9-23); Calcium 9.8 mg/dL (8.7-10.4); Carbon Dioxide 28 mmol/L (20-31); Chloride 102 mmol/L (98-107); Glucose 126 mg/dL (74-106); Potassium 3.8 mmol/L (3.5-5.1); Sodium 140 mmol/L (136-145); Total Protein 8.1 g/dL (5.7-8.2)
[2025-04-09 11:24] LABS: Bilirubin, Total 0.3 mg/dL (0.2-1.0)
[2025-04-09] MEDS ORDERED: ONDANSETRON HCL 4 MG/2 ML VIAL IV PRN (14:00)
[2025-04-09] MEDS ORDERED: DOCUSATE SOD 100 MG CAP PO PRN (14:00)
[2025-04-09] MEDS ORDERED: MORPHINE SULFATE INJ 2 MG/ml SYRG IV PRN (14:00)
[2025-04-09] MEDS ORDERED: NITROGLYCERIN 0.4 MG SL TAB SL PRN (14:00)
[2025-04-09] MEDS ORDERED: ACETAMINOPHEN 325 MG TAB PO PRN (14:00)
--- NOTE | 2025-04-09 14:09 | DVHHP2 ---
History of Present Illness Reason for Visit: Chest pain History of Present Illness Joseline Campos is a 49-year-old female with past medical history of hypothyroidism, diabetes, sleep apnea, home oxygen use, PE in 2014, pulmonary hypertension, chronic respiratory failure on home oxygen, sleep apnea, uterine and thyroid cancer, who came to the hospital for chest pain. Patient states her chest pain began yesterday while she was driving, it has continued to worsen prompting her to come to the hospital. She states the pain is substernal, sharp, radiates to left arm, with associated shortness of breath, weakness and dizziness. Pulmonary: Other (sleep apnea, home oxygen dependent, ), Pulmonary embolus (2014) Endocrine: Diabetes, Hypothyroidism Smoke: No ALCOHOL: none Drugs: None Lives: with Family Domestic Violence: Neg Review of Systems Constitutional: No: Fever, Chills, Sweats, Weakness, Malaise, Other Eyes: No: Pain, Vision change, Conjunctivae inflammation, Eyelid inflammation, Other, Redness ENT: No: Ear pain, Ear discharge, Nose pain, Nose discharge, Nose congestion, Mouth pain, Mouth swelling, Throat pain, Throat swelling, Other Respiratory: Shortness of breath, SOB with excertion; No: Cough, Dry, Wheezing, Hemoptysis, Pleuritic Pain, Sputum, Wheezing, Other Cardiovascular: Chest Pain, Palpitations; No: Orthopnea, Paroxysmal Noc. Dyspnea, Edema, Lt Headedness, Other Gastrointestinal: No: Nausea, Vomiting, Abdominal Pain, Diarrhea, Constipation, Melena, Hematochezia, Other Genitourinary: No Dysuria, No Frequency, No Incontinence, No Hematuria, No Retention, No Other Musculoskeletal: No: other, neck pain, shoulder pain, arm pain, back pain, hand pain, leg pain, foot pain Skin: No: Rash, Lesions, Jaundice, Bruising, Other Neurological: No: Weakness, Numbness, Incoordination, Change in speech, Confusion, Seizures, Other Allergies: Coded Allergies: NO KNOWN ALLERGIES (Unverified , 05/13/14) Exam Vital Signs Vital Signs Date Time Temp Pulse Resp B/P (MAP) Pulse Ox O2 Delivery O2 Flow Rate FiO2 04/09/25 11:18 75 04/09/25 11:09 18 98 Nasal Cannula 04/09/25 11:09 112/67 (82) 04/09/25 10:45 3 32 04/09/25 10:12 97.7 97.7 General Appearance: Alert, Oriented X3, Cooperative, mild distress HEENT: Atraumatic, PERRLA, Mucous membr. moist/pink Respiratory: Clear to auscultation, Normal air movement Cardiovascular: Regular rate, Normal S1, Normal S2 Abdominal: Normal bowel sounds, Soft, No tenderness, No hepatospenomegaly Extremities: No clubbing, No cyanosis, No edema, Normal pulses, No tenderness/swelling Skin: No rashes, No breakdown, No significant lesion Neuro: Normal gait, Normal speech, Strength at 5/5 X4 ext, Normal tone Psych/Mental Status: Mental status NL, Mood NL Labs/Xrays Labs Test 04/09/25 12:53 04/09/25 10:14 Range/Units Troponin I High Sensitivity < 3 L </=34 ng/L White Blood Count 9.8 4.4-10.8 10^3/uL Red Blood Count 4.55 4.0-5.20 10^6/uL Hemoglobin 12.6 12.2-16.2 g/dL Hematocrit 37.6 36.0-46.0 % Mean Corpuscular Volume 82.6 80.0-100.0 fL Mean Corpuscular Hemoglobin 27.7 L 28.0-32.0 pg Mean Corpuscular Hemoglobin Concent 33.5 32.0-36.0 g/dL Red Cell Distribution Width 15.4 H 11.8-14.3 % Platelet Count 268 140-450 10^3/uL Mean Platelet Volume 8.3 6.9-10.8 fL Neutrophils (%) (Auto) 73.0 37.0-80.0 % Lymphocytes (%) (Auto) 19.1 10.0-50.0 % Monocytes (%) (Auto) 5.2 0.0-12.0 % Eosinophils (%) (Auto) 2.1 0.0-7.0 % Basophils (%) (Auto) 0.6 0.0-2.0 % Neutrophils # (Auto) 7.2 1.6-8.6 10 ^3/uL Lymphocytes # (Auto) 1.9 0.4-5.4 10 ^3/uL Monocytes # (Auto) 0.5 0-1.3 10 ^3/uL Eosinophils # (Auto) 0.2 0-0.8 10 ^3/uL Basophils # (Auto) 0.1 0-0.2 10 ^3/uL Nucleated Red Blood Cells 0.0 % D-Dimer, Quantitative 0.47 0.0-0.49 mg/L FEU Sodium Level 140 136-145 mmol/L Potassium Level 3.8 3.5-5.1 mmol/L Chloride Level 102 98-107 mmol/L Carbon Dioxide Level 28 20-31 mmol/L Anion Gap 10 5-15 Blood Urea Nitrogen 13 9-23 mg/dL Creatinine 0.75 0.550-1.02 mg/dL Glomerular Filtration Rate Calc 98 >90 mL/min BUN/Creatinine Ratio 17.3 10.0-20.0 Serum Glucose 126 H 74-106 mg/dL Calcium Level 9.8 8.7-10.4 mg/dL Total Bilirubin 0.3 0.2-1.0 mg/dL Aspartate Amino Transferase (AST) 21 13-40 U/L Alanine Aminotransferase (ALT) 33 7-40 U/L Alkaline Phosphatase 112 46-116 U/L B-Type Natriuretic Peptide 3.56 0-100 pg/mL Total Protein 8.1 5.7-8.2 g/dL Albumin 4.5 3.2-4.8 g/dL EXAM: XY CHEST PORTABLE FINDINGS: Lines and Tubes: None Lungs: No focal consolidation. Pleura: No effusion. No pneumothorax. Cardiomediastinal contours: Unremarkable Bones: No acute osseous abnormality. IMPRESSION: No acute cardiopulmonary disease. Assessment/Plan Assessment/Plan Assessment: Atypical chest pain, Possible PE, Hypertension, Sleep apnea, Hyperlipidemia, Diabetes, Hypothyroidism, Plan: Admit to Tele, Cardiology consult, ECHO, CTA chest, Accu checks Q AC&HS with sliding scale, Supplemental oxygen as needed, Home medications reconciled, Plan discussed with: Patient My Orders Orders - SANJU BARRAGAN Procedure Category Date Status Time Admit ADMIT 04/09/25 Transmitted 13:59 Code Status CODE 04/09/25 Transmitted 13:59 Hydrocodone-Acet PHA 04/09/25 Transmitted 5/325mg Tab ([place] 14:00 Ondansetron Hcl PHA 04/09/25 Transmitted (Zofran) 14:00 Docusate Sodium PHA 04/09/25 Transmitted Capsule (Colace 14:00 Complete Blood Count LAB 04/10/25 Verified 04:00 Comprehensive LAB 04/10/25 Verified Metabolic Panel 04:00 Cardiac DIET 04/09/25 Transmitted Diet-2gna,Lofat,Lochol Dinner Condition: Serious KAROLYN 04/09/25 In Process 13:59 Acetaminophen Tablet PHA 04/09/25 Transmitted (Tylenol Tablet) 14:00 Nitroglycerin PHA 04/09/25 Transmitted Sublingual (Ntrostat 14:00 Morphine Sulfate PHA 04/09/25 Transmitted Injection 14:00 Stat Ekg For Chest [facility] 04/09/25 In Process Pain 13:59 Notify Md Of Changes [facility] 04/09/25 In Process From Base 13:59 Java Web User Interface Developer For [facility] 04/09/25 In Process 24 Hours 13:59 Emergency Dysrhythmia [facility] 04/09/25 In Process Protocol 13:59 Rhythm Strips Once [facility] 04/09/25 In Process Every Shift 13:59 Oxygen By Nasal RT 04/09/25 Transmitted Cannula 13:59 * Cardiology Consult CONS 04/09/25 Transmitted 13:59 Date of Service: Apr 09, 2025 Billing Provider: SANJU BARRAGAN Common Visit Codes: [id number] INP/OBS CARE (MOD) SANJU BARRAGAN Apr 09, 2025 14:09
[2025-04-09] MEDS ORDERED: MORPHINE SULFATE 4 MG/ML SYR/VIAL IV PRN (14:30)
--- NOTE | 2025-04-09 15:10 | DVHINCON2 ---
PATTI CHAIDEZ [facility] 04/09/25 1510: Date Seen: Apr 09, 2025 Referring Physician ADAM Peguero Reason for Consultation Atypical chest pain History of Present Illness This is a 49-year-old female who presented to the emergency room with a chief complaint of chest pain since last night. Per patient, she was driving her vehicle at the onset of symptoms describing the chest pain as left-sided, non- radiating, sharp/dull in nature, constant, worse with inspiration and movement, rated as 7/10, and associated with mild shortness of breath. She underwent multiple 12 lead electrocardiogram revealing a normal sinus rhythm with a short [place] interval and nonspecific ST changes. Serial troponin levels are negative. Significant medical history includes history of PE on anticoagulation therapy x1 year in 2013, history of pulmonary hypertension secondary to PE in 2013, history of uterine cancer status post hormonal intrauterine device, history of thyroid cancer status post radioactive iodine therapy, chronic respiratory failure on home O2 at 3 LPM, hypothyroidism, insulin-dependent diabetes mellitus, obstructive sleep apnea with CPAP HS, TIA, history of tobacco use including seven pack-years, and severe morbid obesity. Past Medical History Past medical history reviewed. No other significant than mentioned above. Past Surgical History D&C Family History: Chronic obstructive lung disease (situation) GRANDMOTHER Depression G8 FATHER, Name: JOSEPH, , Race: OTHER, Onset:Unknown FH: brain tumor GRANDMOTHER FH: dementia GRANDMOTHER FH: emphysema FH: hepatic cirrhosis G8 FATHER, Name: JOSEPH, , Race: OTHER FHx: asthma FHx: diabetes mellitus FHx: liver disease G8 FATHER, Name: JOSEPH, , Race: OTHER, Onset:Unknown Family history: Diabetes mellitus GRANDMOTHER Hypertension G8 FATHER, Name: JOSEPH, , Race: OTHER Family History Family history reviewed. Not significant for cardiovascular disease. Social History Denies the use of illicit drugs, alcohol, or tobacco use. Allergies: Coded Allergies: NO KNOWN ALLERGIES (Unverified , 05/13/14) Home Meds Active Scripts Ondansetron Odt 4MG Tab (ZOFRAN PO) 4 Mg Tb, 4 MG PO TID PRN, #30 TAB prn n/v ODT TAB-DISSOLVE IN MOUTH, THEN SWALLOW Prov:JUMANA ROWLAND MD 09/15/24 Ibuprofen Micronized (Ibuprofen) 800 Mg Tab, 800 MG PO Q8HP PRN, #30 TAB prn fever or pain Prov:JUMANA ROWLAND MD 09/15/24 Acetaminophen (Tylenol Extra Strength) 500 Mg Tab, 1000 MG PO Q6HP PRN, #30 TAB prn fever or pain Prov:JUMANA ROWLAND MD 09/15/24 Aspirin (MICHELLE ASPIRIN EC LOW DOSE) 81 Mg Tab, 1 TAB PO DAILY, #30 TAB Prov:WILSON LINDSEY MD 03/20/21 Reported Medications Metformin Hydrochloride (Metformin Hcl) 1,000 Mg Tab, 1 TAB PO BID for 90 Days, #180 09/17/24 Hydrocodone-Acetaminophen (Hydrocodone Bitartrate/AC 10-325 mg) 1 Tab Tab, 1 TAB PO Q6HR PRN for PAIN for 30 Days, #120 09/17/24 Gabapentin (Gabapentin) 100 Mg Cap, 1 CAP PO TID for 60 Days, #180 09/17/24 Insulin Glargine (Basaglar Kwikpen) 100 Unit/Ml Inj, 30 UNIT SC QPM for 30 Days, #9 09/17/24 Tirzepatide (Mounjaro) 12.5 Mg/0.5 Ml Inj, 12.5 MG SC QWEEKLY for 28 Days, #2 09/17/24 Amitriptyline HCl (Amitriptyline HCl) 10 Mg Tab, 3 TAB PO HS for 30 Days, #90 09/17/24 Finerenone (Kerendia) 20 Mg Tab, 20 MG PO DAILY, TAB 09/16/24 Atorvastatin Calcium (ATORVASTATIN CALCIUM) 10 Mg Tab, 1 TAB PO DAILY, #30 TAB 5 Refills 09/16/24 Lisinopril (Lisinopril) 10 Mg Tab, 10 MG PO DAILY for 30 Days, MG 09/16/24 Levothyroxine Sodium (Levothyroxine Sodium) 175 Mcg Tab, 200 MCG PO QAM for 30 Days, MCG 04/01/23 Ergocalciferol (VITAMIN D 44407 UNIT) 50,000 [place], [address] UNIT PO QWEEKLY, CAP 03/18/21 Albuterol Sulfate (VENTOLIN MDI) 90 Mcg Ih, 90 MCG IN Q6HP PRN for SHORTNESS OF BREATH for 30 Days, MCG 02/13/20 Fluoxetine Hcl (Fluoxetine Hcl) 20 Mg Cap, 40 MG PO DAILY for 30 Days, MG 10/11/18 Discontinued Scripts Ciprofloxacin Hcl (Ciprofloxacin Hcl) 500 Mg Tab, 1 TAB PO BID, #10 TAB Prov:NORMA RAMIREZ MD 09/17/24 Home Meds Home medications reviewed. Current Medications Current Medications Medications (Trade) Dose Ordered Sig/Nurys Route PRN Reason Start Time Stop Time Status Last Admin Acetaminophen/ Hydrocodone Bitart ([place] 5/325MG Tab) 1 tab Q4HP PRN PO MODERATE PAIN (4-6 PAIN SCALE) 04/09/25 14:00 Ondansetron HCl (Zofran) 4 mg Q4HP PRN IV NAUSEA / VOMITING 04/09/25 14:00 Docusate Sodium (Colace Capsule) 100 mg BIDPRN PRN PO FOR CONSTIPATION 04/09/25 14:00 Acetaminophen (Tylenol Tablet) 650 mg Q6HP PRN PO PAIN SCALE 1-3 OR TEMP>100.4 04/09/25 14:00 Nitroglycerin (Ntrostat Sublingual) 0.4 mg Q5MINP PRN SL FOR CHEST PAIN 04/09/25 14:00 Morphine Sulfate 2 mg Q30M PRN IV FOR CHEST PAIN 04/09/25 14:00 UNV Morphine Sulfate 2 mg Q30M PRN IV for chest pain 04/09/25 14:30 Review of Systems Constitutional: Generalized weakness Ears, Nose, & Throat: No symptom reported Eyes: No symptom reported Neurological: No symptoms reported Pulmonary/Respiratory: No symptom reported Cardiovascular: Chest pain Gastrointestinal: No symptom reported Genitourinary: No symptom reported Musculoskeletal: No symptom reported Skin: No symptom reported Psychiatric: No symptom reported Endocrine: No symptom reported Hemotologic/Lymphatic: No symptom reported Vital Signs Vital Signs Date Time Temp Pulse Resp B/P (MAP) Pulse Ox O2 Delivery O2 Flow Rate FiO2 04/09/25 13:58 67 18 114/74 (87) 97 04/09/25 11:09 Nasal Cannula 04/09/25 10:45 3 32 04/09/25 10:12 97.7 97.7 Physical Exam General Appearance: Cooperative. Well developed. Morbidly obese. In no acute distress Head Exam: Normal inspection Neck Exam: Normal inspection. Non-tender. Normal alignment Pulmonary/Respiratory: Chest non-tender. Diminished bilateral breath sounds. O2 via NC at 3 LPM Cardiovascular/Chest: Regular rate and rhythm. S1, S2. NSR. No murmurs. No JVD. Peripheral Pulses: 2+ Radial (R). 2+ Radial (L). 2+ Pedal (R). 2+ Pedal (L) Abdominal Exam: Normal bowel sounds. Soft. Ankle Exam: Negative ankle edema Lower extremities: Negative lower extremity edema Neuro/Mental Status: A&O x4. Coherent Thoughts/Psych: Normal thought pattern. Appropriate mood and affect. Good judgement and insight Appearance: In no acute distress Skin Exam: Normal inspection. Normal color. Warm. Dry Labs/Diagnostic Data Labs Test 04/09/25 12:53 04/09/25 10:14 Range/Units Troponin I High Sensitivity < 3 L </=34 ng/L White Blood Count 9.8 4.4-10.8 10^3/uL Red Blood Count 4.55 4.0-5.20 10^6/uL Hemoglobin 12.6 12.2-16.2 g/dL Hematocrit 37.6 36.0-46.0 % Mean Corpuscular Volume 82.6 80.0-100.0 fL Mean Corpuscular Hemoglobin 27.7 L 28.0-32.0 pg Mean Corpuscular Hemoglobin Concent 33.5 32.0-36.0 g/dL Red Cell Distribution Width 15.4 H 11.8-14.3 % Platelet Count 268 140-450 10^3/uL Mean Platelet Volume 8.3 6.9-10.8 fL Neutrophils (%) (Auto) 73.0 37.0-80.0 % Lymphocytes (%) (Auto) 19.1 10.0-50.0 % Monocytes (%) (Auto) 5.2 0.0-12.0 % Eosinophils (%) (Auto) 2.1 0.0-7.0 % Basophils (%) (Auto) 0.6 0.0-2.0 % Neutrophils # (Auto) 7.2 1.6-8.6 10 ^3/uL Lymphocytes # (Auto) 1.9 0.4-5.4 10 ^3/uL Monocytes # (Auto) 0.5 0-1.3 10 ^3/uL Eosinophils # (Auto) 0.2 0-0.8 10 ^3/uL Basophils # (Auto) 0.1 0-0.2 10 ^3/uL Nucleated Red Blood Cells 0.0 % D-Dimer, Quantitative 0.47 0.0-0.49 mg/L FEU Sodium Level 140 136-145 mmol/L Potassium Level 3.8 3.5-5.1 mmol/L Chloride Level 102 98-107 mmol/L Carbon Dioxide Level 28 20-31 mmol/L Anion Gap 10 5-15 Blood Urea Nitrogen 13 9-23 mg/dL Creatinine 0.75 0.550-1.02 mg/dL Glomerular Filtration Rate Calc 98 >90 mL/min BUN/Creatinine Ratio 17.3 10.0-20.0 Serum Glucose 126 H 74-106 mg/dL Calcium Level 9.8 8.7-10.4 mg/dL Total Bilirubin 0.3 0.2-1.0 mg/dL Aspartate Amino Transferase (AST) 21 13-40 U/L Alanine Aminotransferase (ALT) 33 7-40 U/L Alkaline Phosphatase 112 46-116 U/L B-Type Natriuretic Peptide 3.56 0-100 pg/mL Total Protein 8.1 5.7-8.2 g/dL Albumin 4.5 3.2-4.8 g/dL Assessment Noncardiac chest pain, pleuritic in nature Rule out structural heart disease History of PE with RV strain (2013) Insulin-dependent diabetes mellitus Chronic respiratory failure with home O2 Hx thyroid CA/Uterine CA YONNY with CPAP HS Hx of TIA Severe morbid obesity Plan/Recommendation (Dr. Stoner) Case discussed with Dr. Stoner. The patient presents with non-cardiac chest pain, negative troponin levels, and non-specific ST segment changes on twelve lead electrocardiograms. Scheduled for a transthoracic echocardiogram to evaluate cardiac function. Consider an outpatient stress test if deemed necessary. The patient can benefit for close cardiology follow up as outpatient given history of PE. Not suspected for PE at this time, negative d-dimer level. In the setting of an unremarkable echocardiogram, there is no further cardiac work-up indicated at this time. Thank you for allowing us to participate in this patient's care. Please call if you have any questions or concerns. This medical document was created using an electronic medical record system with voice recognition software and computerized dictation system. Although this document has been carefully reviewed, there might still be some phonetic and typographical errors. Occasional wrong-word or ``sound-alike substitutions may have occurred due to the inherent limitations of voice recognition software. These areas are purely typographical due to imperfections of the software programs and do not reflect any compromise in the patient's medical care. Please read the chart carefully and recognize, using context, where these substitutions have occurred. Plan discussed with: Patient, Other NYHA Physical activity limitations: NA Date of Service: Apr 09, 2025 Billing Provider: PATTI CHAIDEZ Cardiology Common Codes: [id number] INP/OBS CARE (High) MARIANO STONER MD 04/11/25 1005: Date Seen: Apr 09, 2025 Family History: Chronic obstructive lung disease (situation) GRANDMOTHER Depression G8 FATHER, Name: JOSEPH, , Race: OTHER, Onset:Unknown FH: brain tumor GRANDMOTHER FH: dementia GRANDMOTHER FH: emphysema FH: hepatic cirrhosis G8 FATHER, Name: JOSEPH, , Race: OTHER FHx: asthma FHx: diabetes mellitus FHx: liver disease G8 FATHER, Name: JOSEPH, , Race: OTHER, Onset:Unknown Family history: Diabetes mellitus GRANDMOTHER Hypertension G8 FATHER, Name: JOSEPH, , Race: OTHER Allergies: Coded Allergies: NO KNOWN ALLERGIES (Unverified , 05/13/14) Home Meds Active Scripts Ondansetron Odt 4MG Tab (ZOFRAN PO) 4 Mg Tb, 4 MG PO TID PRN, #30 TAB prn n/v ODT TAB-DISSOLVE IN MOUTH, THEN SWALLOW Prov:JUMANA ROWLAND MD 09/15/24 Ibuprofen Micronized (Ibuprofen) 800 Mg Tab, 800 MG PO Q8HP PRN, #30 TAB prn fever or pain Prov:JUMANA ROWLAND MD 09/15/24 Acetaminophen (Tylenol Extra Strength) 500 Mg Tab, 1000 MG PO Q6HP PRN, #30 TAB prn fever or pain Prov:JUMANA ROWLAND MD 09/15/24 Aspirin (MICHELLE ASPIRIN EC LOW DOSE) 81 Mg Tab, 1 TAB PO DAILY, #30 TAB Prov:WILSON LINDSEY MD 03/20/21 Reported Medications Metformin Hydrochloride (Metformin Hcl) 1,000 Mg Tab, 1 TAB PO BID for 90 Days, #180 09/17/24 Hydrocodone-Acetaminophen (Hydrocodone Bitartrate/AC 10-325 mg) 1 Tab Tab, 1 TAB PO Q6HR PRN for PAIN for 30 Days, #120 09/17/24 Gabapentin (Gabapentin) 100 Mg Cap, 1 CAP PO TID for 60 Days, #180 09/17/24 Insulin Glargine (Basaglar Kwikpen) 100 Unit/Ml Inj, 30 UNIT SC QPM for 30 Days, #9 09/17/24 Tirzepatide (Mounjaro) 12.5 Mg/0.5 Ml Inj, 12.5 MG SC QWEEKLY for 28 Days, #2 09/17/24 Amitriptyline HCl (Amitriptyline HCl) 10 Mg Tab, 3 TAB PO HS for 30 Days, #90 09/17/24 Finerenone (Kerendia) 20 Mg Tab, 20 MG PO DAILY, TAB 09/16/24 Atorvastatin Calcium (ATORVASTATIN CALCIUM) 10 Mg Tab, 1 TAB PO DAILY, #30 TAB 5 Refills 09/16/24 Lisinopril (Lisinopril) 10 Mg Tab, 10 MG PO DAILY for 30 Days, MG 09/16/24 Levothyroxine Sodium (Levothyroxine Sodium) 175 Mcg Tab, 200 MCG PO QAM for 30 Days, MCG 04/01/23 Ergocalciferol (VITAMIN D 23996 UNIT) 50,000 [place], [address] UNIT PO QWEEKLY, CAP 03/18/21 Albuterol Sulfate (VENTOLIN MDI) 90 Mcg Ih, 90 MCG IN Q6HP PRN for SHORTNESS OF BREATH for 30 Days, MCG 02/13/20 Fluoxetine Hcl (Fluoxetine Hcl) 20 Mg Cap, 40 MG PO DAILY for 30 Days, MG 10/11/18 Discontinued Scripts Ciprofloxacin Hcl (Ciprofloxacin Hcl) 500 Mg Tab, 1 TAB PO BID, #10 TAB Prov:NORMA RAMIREZ MD 09/17/24 Plan/Recommendation 49F with pleuritic CP. Complicated history of PE and RV strain with no outpatient follow up. Off anticoagulation. CTEPH? Will obtain complete eval with echo and CTA. if unremarkable treat is pleuritis with colchicine as tolerated. Recommend Aspirin 81 daily if no contraindications, vascular calcifications noted on imaging- CAD equivalent. Cardiology Common Codes: [id number] INP/OBS CARE (High) PATTI CHAIDEZ [employer] Apr 09, 2025 15:10 MARIANO STONER MD Apr 11, 2025 10:05
[2025-04-09] MEDS: HYDROcodone-ACET 5/325MG TAB PO PRN (15:35)
[2025-04-09 15:38] VITALS: BP 115/51; PULSE 68; RESP 18; TEMP 98.2; O2SAT 98
[2025-04-09 17:00] VITALS: BP 105/63; PULSE 66; RESP 13; TEMP 97.6; O2SAT 95
[2025-04-09] MEDS ORDERED: IOHEXOL 350 MG/ML 100ML IJ ONE (17:10)
[2025-04-09] MEDS ORDERED: DEXTROSE (50%) 50ML SYRG IV PRN (18:15)
--- NOTE | 2025-04-09 18:18 | DVH ---
CTA Chest with intravenous contrast INDICATION: r/o PE COMPARISON: None TECHNIQUE: Multidetector spiral CTA of the chest was performed of the chest with intravenous contrast . PULMONARY ANGIOGRAPHY PROTOCOL was utilized using a bolus-tracking technique centered on the main p ulmonary artery. Axial, coronal and sagittal multiplanar and MIP reformats were performed. Radiation Dose : 1. Chest: CTDI volume is 29.2 mGy. Dose-length product is 1008.08 mGy*cm The dose indicators for CT are the volume Computed Tomography (CT) Dose Index (CTDIvol) and the Dose Length Product (DLP), and are measured in units of mGy and mGy-cm, respectively. These indicators are not patient dose, but values generated from the CT scanner acquisition factors. The report includes radiation exposure data for exposures received during this examination. Findings: Pulmonary artery: No pulmonary embolism Lower neck: Normal thyroid. Lungs: Stable 9 mm nodular density in the right lower lobe , unchanged since September 15, 2024. No f ocal pneumonia Heart/Vascular Structures: Normal heart size. No pericardial effusion. Lymph Nodes: No adenopathy Pleura: No pleural effusion or significant pneumothorax. Musculoskeletal: No acute osseous abnormality. Soft tissues: Normal. Upper abdomen: Limited portions of the upper abdomen are unremarkable. IMPRESSION: 1. No pulmonary embolism. 2. No acute pulmonary disease. 3. Stable 9 mm pulmonary nodule in the right lower lobe, unchanged since September 15, 2024. Recommend follow-up noncontrast chest CT in 3-6 months
--- NOTE | 2025-04-09 18:28 | ECG ---
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
[2025-04-09 19:14] VITALS: BP 105/63; PULSE 66; RESP 13; TEMP 97.6; O2SAT 95
[2025-04-09 21:18] VITALS: BP 115/64; PULSE 67; RESP 18; TEMP 97.7; O2SAT 95
[2025-04-09] MEDS: AMITRIPTYLINE HCL 10 MG TAB PO SCH (21:49)
[2025-04-09] MEDS: ACCU-CHEK COMFORT CURVE STRIP VI SCH (21:56)
[2025-04-09] MEDS: InsuLIN REG 1unit/0.01ml Soln (100units/ml) SC SCH (21:57)
[2025-04-09] MEDS: GABAPENTIN 100 MG CAP PO SCH (21:58)
[2025-04-09 22:35] VITALS: PULSE 64; O2SAT 99
[2025-04-10] VITALS (8 sets, daily range): BP systolic 99–125; BP diastolic 55–69; PULSE 55–78; RESP 8–20; TEMP 97.2–98.5; O2SAT 96–100
[2025-04-10] MEDS: LEVOTHYROXINE SODIUM 100 MCG TAB PO SCH (06:09)
[2025-04-10] MEDS: InsuLIN REG 1unit/0.01ml Soln (100units/ml) SC SCH (06:14)
[2025-04-10 06:53] LABS: Basophils # (auto) 0 10 ^3/uL (0-0.2); Basophils % (auto) 0.5 % (0.0-2.0); Eosinophils # (auto) 0.3 10 ^3/uL (0-0.8); Eosinophils % (auto) 3.1 % (0.0-7.0); Hematocrit 34.8 % (36.0-46.0); Hemoglobin 11.6 g/dL (12.2-16.2); Lymphocytes # (auto) 1.9 10 ^3/uL (0.4-5.4); Lymphocytes % (auto) 19.8 % (10.0-50.0); Mean Corpuscular Hemoglobin 27.6 pg (28.0-32.0); Mean Corpuscular Hgb Conc. 33.3 g/dL (32.0-36.0); Mean Corpuscular Volume 82.9 fL (80.0-100.0); Monocytes # (auto) 0.5 10 ^3/uL (0-1.3); Monocytes % (auto) 5.2 % (0.0-12.0); Neutrophils % (auto) 71.4 % (37.0-80.0); Platelet Count (auto) 252 10^3/uL (140-450); Red Cell Distribution Width 15.7 % (11.8-14.3); White Blood Cell 9.8 10^3/uL (4.4-10.8)
[2025-04-10 07:12] LABS: Alanine Aminotransferase 28 U/L (7-40); Albumin 4.1 g/dL (3.2-4.8); Alkaline Phosphatase 106 U/L (46-116); Anion Gap 11 (5-15); Aspartate Aminotransferase 25 U/L (13-40); BUN/Creatinine Ratio 19.4 (10.0-20.0); Bilirubin, Total 0.3 mg/dL (0.2-1.0); Blood Urea Nitrogen 14 mg/dL (9-23); Calcium 9.4 mg/dL (8.7-10.4); Carbon Dioxide 26 mmol/L (20-31); Chloride 103 mmol/L (98-107); Glucose 125 mg/dL (74-106); Potassium 4.2 mmol/L (3.5-5.1); Sodium 140 mmol/L (136-145); Total Protein 7.4 g/dL (5.7-8.2)
[2025-04-10] MEDS: FINERENONE 20 MG PO SCH (10:00)
[2025-04-10] MEDS: ASPirin-EC 81 mg tab PO SCH (10:19)
[2025-04-10] MEDS: FLUoxetine HCL 20 MG CAP PO SCH (10:20)
[2025-04-10] MEDS: LISINOPRIL 5 MG TAB PO SCH (10:25)
--- NOTE | 2025-04-10 13:11 | DVHPN2 ---
Reviewed: Care Plan, H&P, Labs, Medications, Previous Orders, Radiology Changes from previous H/P or p: No Changes Eyes: No Pain, No Vision change, No Conjunctivae inflammation, No Eyelid inflammation, No Other, No Redness ENT: No Ear pain, No Ear discharge, No Nose pain, No Nose discharge, No Nose congestion, No Mouth pain, No Mouth swelling, No Throat pain, No Throat swelling, No Other Cardiovascular: Chest Pain, Palpitations; No Orthopnea, No Paroxysmal Noc. Dyspnea, No Edema, No Lt Headedness, No Other Respiratory: No Cough, No Dry; Shortness of breath, SOB with excertion; No Wheezing, No Hemoptysis, No Pleuritic Pain, No Sputum, No Other Gastrointestinal: No Nausea, No Vomiting, No Abdominal Pain, No Diarrhea, No Constipation, No Melena, No Hematochezia, No Other Genitourinary: No Dysuria, No Frequency, No Incontinence, No Hematuria, No Retention, No Other Musculoskeletal: No other, No neck pain, No shoulder pain, No arm pain, No back pain, No hand pain, No leg pain, No foot pain Skin: No Rash, No Lesions, No Jaundice, No Bruising, No Other Objective Vitals Vital Signs Date Time Temp Pulse Resp B/P (MAP) Pulse Ox O2 Delivery O2 Flow Rate FiO2 04/10/25 10:25 114/62 04/10/25 09:00 97.5 78 19 97 97.5 04/09/25 22:35 Facial BiPAP Mask 04/09/25 21:20 3 32 Intake/Output Intake and Output 04/10/25 07:00 Intake Total 354 ml Balance 354 ml Intake Oral 354 ml # Voids 5 # Bowel Movements 1 Medications Current Medications Medications Dose Ordered Sig/Nurys Route Start Time Stop Time Status Last Admin Dose Admin Acetaminophen/ Hydrocodone Bitart 1 tab Q4HP PRN PO 04/09/25 14:00 04/10/25 10:19 1 TAB Ondansetron HCl 4 mg Q4HP PRN IV 04/09/25 14:00 Docusate Sodium 100 mg BIDPRN PRN PO 04/09/25 14:00 Acetaminophen 650 mg Q6HP PRN PO 04/09/25 14:00 Nitroglycerin 0.4 mg Q5MINP PRN SL 04/09/25 14:00 Morphine Sulfate 2 mg Q30M PRN IV 04/09/25 14:00 UNV Morphine Sulfate 2 mg Q30M PRN IV 04/09/25 14:30 Diagnostic Test (Pha) 1 strip ACHS 04/09/25 22:00 04/10/25 11:44 1 STRIP Insulin Human Regular HS SC 04/09/25 22:00 04/09/25 21:57 2 UNITS Insulin Human Regular AC SC 04/10/25 07:00 04/10/25 06:14 2 UNITS Dextrose 50 ml UD PRN IV 04/09/25 18:15 Amitriptyline HCl 30 mg HS PO 04/09/25 22:00 04/09/25 21:49 30 MG Aspirin 81 mg DAILY PO 04/10/25 10:00 04/10/25 10:19 81 MG Fluoxetine HCl 40 mg DAILY PO 04/10/25 10:00 04/10/25 10:20 40 MG Gabapentin 100 mg TID PO 04/09/25 22:00 Atorvastatin Calcium 10 mg HS PO 04/10/25 22:00 Patient Own Medication 20 mg DAILY PO 04/10/25 10:00 Insulin Glargine 30 units QPM SC 04/10/25 18:00 Levothyroxine Sodium 200 mcg QAM PO 04/10/25 07:00 04/10/25 06:09 200 MCG Lisinopril 10 mg DAILY PO 04/10/25 10:00 04/10/25 10:25 10 MG Laboratory Results Laboratory Tests 04/10/25 05:27 Chemistry Test 04/10/25 05:27 Albumin 4.1 g/dL (3.2-4.8) Calcium Level 9.4 mg/dL (8.7-10.4) Total Protein 7.4 g/dL (5.7-8.2) LFT Test 04/10/25 05:27 Alanine Aminotransferase (ALT) 28 U/L (7-40) Alkaline Phosphatase 106 U/L (46-116) Aspartate Amino Transferase (AST) 25 U/L (13-40) Total Bilirubin 0.3 mg/dL (0.2-1.0) Labs and/or images reviewed: Labs reviewed by me, Image(s) reviewed by me Assessment/Plan Assessment/Plan Noncardiac chest pain, pleuritic in nature Rule out structural heart disease History of PE with RV strain (2013) D-dimer normal now Insulin-dependent diabetes mellitus Chronic respiratory failure with home O2 Hx thyroid CA/Uterine CA YONNY with CPAP HS Hx of TIA Severe morbid obesity Echocardiogram report pending Plan discussed with: Patient Date of Service: Apr 10, 2025 Billing Provider: DOROTHEA TODD MD Common Visit Codes: [id number] INP/OBS CARE(HIGH) DOROTHEA TODD MD Apr 10, 2025 13:11
--- NOTE | 2025-04-10 16:38 | DVHSR ---
APPROVED REPORT EXAM: Two-dimensional and M-mode echocardiogram with Doppler and color Doppler. Blood Pressure: 99/61 mmHg INDICATION Chest Pain SOB RISK FACTORS Height: 61, Weight: 367 DIMENSIONS LVDd4.7 (3.8-5.7cm)LA (2D)4.4 (1.9-4.0cm)Aortic Root3.0 (2.0-3.7cm) LVDs3.4 (2.5-4.0cm)LA (MM) (1.9-4.0cm)Aortic Cusp Exc1.5 (1.5-2.0cm) EF (%) 53.0 (55-70%)Rt. Atrium3.6 (1.9-4.0cm)Asc. Aorta cm Mitral Valve MitralMitral Stenosis E wave0.91m/sMV Mean GR.mmHg A wave0.86m/sMV Peak GR.mmHg E/A ratio1.12D MVAcm2 DECEL [id number] 1/2 [id number] IVRTmsDop MVA1.84cm2 Aortic Valve Aortic ValveAortic Stenosis V11.63m/Diamante Mean GR.12mmHg V22.24m/Diamante Peak GR.20mmHg LVOT Diameter2.3 (1.8-2.4cm)Doppler AVA3.02cm2 Tricuspid Valve TR Velocity3.06m/s [id number] Other Information Technically limited study due to body habitus, patient position and limited views due to patient is 370 pounds. Conclusion Technically difficult study. Difficult acoustic windows. Sinus rhythm. Mild LV enlargement. Mild LA enlargement. Calcified aortic annulus. There is calcification at the base of the intra-atrial septum as well. Th e mitral and tricuspid appear to be structurally normal. Left ventricular function appears preserved at 60% with normal RV function. There is mild TR. Mild MR. No intracardiac masses thrombi or vegetations. No pericardial effusion noted.
[2025-04-10] MEDS: INSULIN LANTUS (GLARGINE) 1 /0.01ml (100units/ml) SC SCH (18:21)
[2025-04-10] MEDS: FAMOTIDINE 20 MG TAB PO ONE (18:57)
[2025-04-10] MEDS: ATORVASTATIN 20 MG TAB PO SCH (22:37)
[2025-04-10] MEDS: FAMOTIDINE 20 MG TAB PO SCH (22:38)
[2025-04-11] VITALS (7 sets, daily range): BP systolic 88–123; BP diastolic 40–71; PULSE 64–74; RESP 18–20; TEMP 97.7–98.4; O2SAT 95–100
--- NOTE | 2025-04-11 10:20 | DVHPN2 ---
Reviewed: Care Plan, H&P, Labs, Medications, Previous Orders, Radiology Changes from previous H/P or p: No Changes Eyes: No Pain, No Vision change, No Conjunctivae inflammation, No Eyelid inflammation, No Other, No Redness ENT: No Ear pain, No Ear discharge, No Nose pain, No Nose discharge, No Nose congestion, No Mouth pain, No Mouth swelling, No Throat pain, No Throat swelling, No Other Cardiovascular: Chest Pain, Palpitations; No Orthopnea, No Paroxysmal Noc. Dyspnea, No Edema, No Lt Headedness, No Other Respiratory: No Cough, No Dry; Shortness of breath, SOB with excertion; No Wheezing, No Hemoptysis, No Pleuritic Pain, No Sputum, No Other Gastrointestinal: No Nausea, No Vomiting, No Abdominal Pain, No Diarrhea, No Constipation, No Melena, No Hematochezia, No Other Genitourinary: No Dysuria, No Frequency, No Incontinence, No Hematuria, No Retention, No Other Musculoskeletal: No other, No neck pain, No shoulder pain, No arm pain, No back pain, No hand pain, No leg pain, No foot pain Skin: No Rash, No Lesions, No Jaundice, No Bruising, No Other Objective Vitals Vital Signs Date Time Temp Pulse Resp B/P (MAP) Pulse Ox O2 Delivery O2 Flow Rate FiO2 04/11/25 09:00 97.7 68 18 114/54 (74) 95 97.7 04/11/25 08:25 Nasal Cannula 3.0 04/11/25 08:00 21 Intake/Output Intake and Output 04/11/25 07:00 Intake Total 1850 ml Balance 1850 ml Intake Oral 1850 ml # Voids 7 # Bowel Movements 1 Medications Current Medications Medications Dose Ordered Sig/Nurys Route Start Time Stop Time Status Last Admin Dose Admin Acetaminophen/ Hydrocodone Bitart 1 tab Q4HP PRN PO 04/09/25 14:00 04/11/25 04:56 1 TAB Ondansetron HCl 4 mg Q4HP PRN IV 04/09/25 14:00 Docusate Sodium 100 mg BIDPRN PRN PO 04/09/25 14:00 Acetaminophen 650 mg Q6HP PRN PO 04/09/25 14:00 Nitroglycerin 0.4 mg Q5MINP PRN SL 04/09/25 14:00 Morphine Sulfate 2 mg Q30M PRN IV 04/09/25 14:00 UNV Morphine Sulfate 2 mg Q30M PRN IV 04/09/25 14:30 Diagnostic Test (Pha) 1 strip ACHS 04/09/25 22:00 04/11/25 06:10 1 STRIP Insulin Human Regular HS SC 04/09/25 22:00 04/09/25 21:57 2 UNITS Insulin Human Regular AC SC 04/10/25 07:00 04/11/25 06:12 2 UNITS Dextrose 50 ml UD PRN IV 04/09/25 18:15 Amitriptyline HCl 30 mg HS PO 04/09/25 22:00 04/10/25 22:37 30 MG Aspirin 81 mg DAILY PO 04/10/25 10:00 04/11/25 09:05 81 MG Fluoxetine HCl 40 mg DAILY PO 04/10/25 10:00 04/11/25 09:04 40 MG Gabapentin 100 mg TID PO 04/09/25 22:00 Atorvastatin Calcium 10 mg HS PO 04/10/25 22:00 04/10/25 22:37 10 MG Patient Own Medication 20 mg DAILY PO 04/10/25 10:00 Insulin Glargine 30 units QPM SC 04/10/25 18:00 04/10/25 18:21 30 UNITS Levothyroxine Sodium 200 mcg QAM PO 04/10/25 07:00 04/11/25 06:18 200 MCG Lisinopril 10 mg DAILY PO 04/10/25 10:00 04/10/25 10:25 10 MG Famotidine 20 mg BID PO 04/10/25 22:00 04/11/25 09:04 20 MG Laboratory Results Laboratory Tests 04/10/25 05:27 Labs and/or images reviewed: Labs reviewed by me, Image(s) reviewed by me Assessment/Plan Assessment/Plan Noncardiac chest pain, pleuritic chest pain: Colchicine Rule out structural heart disease, echo 60 percent ejection fraction History of PE with RV strain (2013) D-dimer normal now Insulin-dependent diabetes mellitus Chronic respiratory failure with home O2 Hx thyroid CA/Uterine CA YONNY with CPAP HS Hx of TIA Severe morbid obesity Patient says she feels better and wants to go home Plan discussed with: Patient Date of Service: Apr 11, 2025 Billing Provider: DOROTHEA TODD MD Common Visit Codes: [id number] INP/OBS CARE(HIGH) DOROTHEA TODD MD Apr 11, 2025 10:20
[2025-04-11] MEDS ORDERED: COLC1CAP PO (10:24)
--- NOTE | 2025-04-11 10:30 | DVHDS2 ---
Discharge Summary Date of Admission Apr 09, 2025 at 13:59 Date of Discharge: Apr 11, 2025 Admitting Diagnosis Chest pain Wounds: None Labs/Diagnostic Data: Laboratory Results Test 04/11/25 06:07 04/10/25 05:27 04/09/25 12:53 04/09/25 10:14 POC Glucose 133 mg/dl (70-106) White Blood Count 9.8 10^3/uL (4.4-10.8) Red Blood Count 4.20 10^6/uL (4.0-5.20) Hemoglobin 11.6 g/dL (12.2-16.2) Hematocrit 34.8 % (36.0-46.0) Mean Corpuscular Volume 82.9 fL (80.0-100.0) Mean Corpuscular Hemoglobin 27.6 pg (28.0-32.0) Mean Corpuscular Hemoglobin Concent 33.3 g/dL (32.0-36.0) Red Cell Distribution Width 15.7 % (11.8-14.3) Platelet Count 252 10^3/uL (140-450) Mean Platelet Volume 8.6 fL (6.9-10.8) Neutrophils (%) (Auto) 71.4 % (37.0-80.0) Lymphocytes (%) (Auto) 19.8 % (10.0-50.0) Monocytes (%) (Auto) 5.2 % (0.0-12.0) Eosinophils (%) (Auto) 3.1 % (0.0-7.0) Basophils (%) (Auto) 0.5 % (0.0-2.0) Neutrophils # (Auto) 7.0 10 ^3/uL (1.6-8.6) Lymphocytes # (Auto) 1.9 10 ^3/uL (0.4-5.4) Monocytes # (Auto) 0.5 10 ^3/uL (0-1.3) Eosinophils # (Auto) 0.3 10 ^3/uL (0-0.8) Basophils # (Auto) 0 10 ^3/uL (0-0.2) Nucleated Red Blood Cells 0.0 % Sodium Level 140 mmol/L (136-145) Potassium Level 4.2 mmol/L (3.5-5.1) Chloride Level 103 mmol/L (98-107) Carbon Dioxide Level 26 mmol/L (20-31) Anion Gap 11 (5-15) Blood Urea Nitrogen 14 mg/dL (9-23) Creatinine 0.72 mg/dL (0.550-1.02) Glomerular Filtration Rate Calc 103 mL/min (>90) BUN/Creatinine Ratio 19.4 (10.0-20.0) Serum Glucose 125 mg/dL (74-106) Calcium Level 9.4 mg/dL (8.7-10.4) Total Bilirubin 0.3 mg/dL (0.2-1.0) Aspartate Amino Transferase (AST) 25 U/L (13-40) Alanine Aminotransferase (ALT) 28 U/L (7-40) Alkaline Phosphatase 106 U/L (46-116) Total Protein 7.4 g/dL (5.7-8.2) Albumin 4.1 g/dL (3.2-4.8) Troponin I High Sensitivity < 3 ng/L (</=34) D-Dimer, Quantitative 0.47 mg/L FEU (0.0-0.49) B-Type Natriuretic Peptide 3.56 pg/mL (0-100) Other Laboratory Tests 04/10/25 05:27 Brief Hx & Hospital Course: 49-year-old female with a history of diabetes chronic respiratory failure on home oxygen history of thyroid cancer uterine cancer obstructive sleep apnea on CPAP history of TIA severely morbidly obese history of PE and right ventricular strain in 2013 came in complaining of chest pain. Troponin negative x3 echo 60 percent ejection fraction seen by commercial green building architect advised patient has noncardiac possible pleuritic chest pain advised colchicine. Patient feels better afebrile stable vital signs discharged home prescription for colchicine transmitted to pharmacy Consults/Reason for consult Cardiology Operations or Procedures Echocardiogram Condition at Discharge: Fair Final Diagnosis/Problems List Noncardiac chest pain, pleuritic chest pain: Colchicine Rule out structural heart disease, echo 60 percent ejection fraction History of PE with RV strain (2013) D-dimer normal now Insulin-dependent diabetes mellitus Chronic respiratory failure with home O2 Hx thyroid CA/Uterine CA YONNY with CPAP HS Hx of TIA Severe morbid obesity Discharge Disposition: Home Discharge Instruct/Medications Diet: Cardiac 2g Na,low cholest Activity: Light activity Follow Up/Referral: Resume all previous home medications Follow up with the primary Dr in one week Medications: Colchicine Transmitted to pharmacy 39 (Time taken for discharge summary 39 minutes) Discharge Statement: "Patient was advised to return to the ER or call 911 if any headaches, dizziness, shortness of breath, chest pain, abdominal pain, bleeding, fevers, or worsening of medical condition. Patient was counseled about treatment plan, medications, possible side effects, patientverbalized understanding. All questions were answered to the best of my ability. This discharge took greater then 30 minutes in planning, reviewing documentation, counseling the patient, and discussing with other team members." ASSESSMENT ASSESSMENT Hospital Course Improved Assessment Noncardiac chest pain, pleuritic chest pain: Colchicine Rule out structural heart disease, echo 60 percent ejection fraction History of PE with RV strain (2013) D-dimer normal now Insulin-dependent diabetes mellitus Chronic respiratory failure with home O2 Hx thyroid CA/Uterine CA YONNY with CPAP HS Hx of TIA Severe morbid obesity Date of Service: Apr 11, 2025 Billing Provider: DOROTHEA TODD MD Common Visit Codes: 54608-KZK/OBS DISCH DAY >30min DOROTHEA TODD MD Apr 11, 2025 10:30
== END 2025-04-11 13:55 | disposition home or self-care (01) | DRG 313 ==
LOC: ER 10:09 → OVERFLOW 13:59 → TELE-EAST 21:17
PROVIDERS: ADMIT Family Medicine; ATTEND Family Medicine
PROC: 5A09357 Assistance with Respiratory Ventilation, Less than 24 Consecutive Hours, Continuous Positive Airway Pressure (ICD-10-PCS; principal; 2025-04-09)
DX: R07.89 Other chest pain (principal); J96.10 Chronic respiratory failure, unspecified whether with hypoxia or hypercapnia; Z68.44 Body mass index [BMI] 60.0-69.9, adult; G47.33 Obstructive sleep apnea (adult) (pediatric); E78.5 Hyperlipidemia, unspecified; E66.01 Morbid (severe) obesity due to excess calories; E11.9 Type 2 diabetes mellitus without complications; E03.9 Hypothyroidism, unspecified; I10 Essential (primary) hypertension; Z85.850 Personal history of malignant neoplasm of thyroid; Z86.711 Personal history of pulmonary embolism; Z86.73 Personal history of transient ischemic attack (TIA), and cerebral infarction without residual deficits; Z90.710 Acquired absence of both cervix and uterus; Z82.49 Family history of ischemic heart disease and other diseases of the circulatory system; Z81.8 Family history of other mental and behavioral disorders; Z83.3 Family history of diabetes mellitus; Z82.5 Family history of asthma and other chronic lower respiratory diseases; Z79.82 Long term (current) use of aspirin; Z79.4 Long term (current) use of insulin; Z79.899 Other long term (current) drug therapy; Z79.84 Long term (current) use of oral hypoglycemic drugs; Z79.2 Long term (current) use of antibiotics; Z85.42 Personal history of malignant neoplasm of other parts of uterus; Z87.891 Personal history of nicotine dependence; Z99.81 Dependence on supplemental oxygen
CPT/HCPCS: 36415; 71045; 71275; 80053; 82962; 83880; 84484; 85025; 85379; 93005; 93306; 94660; 96372; G0378; J1815

== ENCOUNTER 2025-06-27 07:14 | Emergency (ER) | payer OTHER, MEDICAID ==
[~2025-06-27] VITALS: Ht 154.9 cm; Wt 165.3 kg
[~2025-06-27 07:14] MED LIST changes: -CIPR500T4 PO; +COLC1CAP PO
--- NOTE | 2025-06-27 07:53 | ED.PDOC ---
SOB-HPI HPI Comments A 49 YEAR OLD FEMALE PRESENTS TO THE ED WITH COMPLAINT OF COUGH AND SORE THROAT. PATIENT STATES SHE HAS BEEN EXPERIENCING COUGH, SORE THROAT, CHILLS, AND BODY ACHES OFF AND ON FOR THE PAST 1 WEEK. PATIENT REPORTS SHE WENT TO HER PCP A FEW DAYS AGO AND WAS TOLD SHE MAY HAVE A VIRUS AND FOR HER TO TAKE OTC MEDICATIONS. PATIENT NOTES SHE HAS BEEN TAKING OTC MEDICATIONS WITH NO IMPROVEMENT IN HIS SYMPTOMS. PATIENT DENIES FEVER, CHILLS, SHORTNESS OF BREATH, CHEST PAIN, ABDOMINAL PAIN, NAUSEA, VOMITING, HEADACHE, OR OTHER COMPLAINTS. NO OTHER SYMPTOMS OR MODIFYING FACTORS AT THIS TIME. PATIENT IS ALERT, ORIENTED X 4, AND HAS STEADY GAIT. Chief Complaint: Flu like Time Seen by MD: 07:16 Primary Care Provider: SIDRA Hernandez notes: Nurses Notes, Medications, Allergies Information Source: Patient Mode of Arrival: Ambulatory Severity: Moderate Timing: Days Duration: Since onset, Days Context: Spontaneous Onset PE Risk Factors: None History of: DVT/PE, Recent URI Prehospital treatment: None Modifying Factors: Nothing Associated Signs and Symptoms: Cough, Nasal Congestion, Sore Throat If cough with SOB: Productive Past Medical History PAST MEDICAL HISTORY: Anemia, Cancer, DM, High Lipids, HTN, PE, Thyroid, TIA Surgical History: Hysterectomy FIELD PROPERTY LOSS SPECIALIST History: No Pertinent FIELD PROPERTY LOSS SPECIALIST History, Other Family History Family History: Reviewed,noncontributory to illness, Family hx of DM, Family hx of Cancer, Family hx of HTN, Family hx of lung jessica Family History (Other): Asthma Social History Smoker: Quit Greater Than 1 Year Alcohol: Occasionally Drugs: Denies Drug Use Lives In: Home Constitutional: reports: chills; denies: diaphoresis, fatigue, fever, malaise, sweats, weakness, others EENTM: reports: throat pain, throat swelling; denies: blurred vision, double vision, ear bleeding, ear discharge, ear drainage, ear pain, ear ringing, eye pain, eye redness, hearing loss, mouth pain, mouth swelling, nasal discharge, nose bleeding, nose congestion, nose pain, photophobia, tearing, voice changes, others Respiratory: reports: cough; denies: hemoptysis, orthopnea, SOB at rest, shortness of breath, SOB with excertion, stridor, wheezing, others Cardiovascular: denies: chest pain, dizzy spells, diaphoresis, Dyspnea on exertion, edema, irregular heart beat, left arm pain, lightheadedness, palpitations, PND, syncope, others Gastrointestinal: denies: abdomen distended, abdominal pain, blood streaked bowels, constipated, diarrhea, dysphagia, difficulty swallowing, hematemesis, melena, nausea, poor appetite, poor fluid intake, rectal bleeding, rectal pain, vomiting, others Genitourinary: denies: abnormal vagina bleeding, burning, dyspareunia, dysuria, flank pain, frequency, hematuria, incontinence, pain, , vagina discharge, urgency, others Neurological: denies: dizziness, fainting, headache, left sided numbness, left sided weakness, numbness, paresthesia, pre-existing deficit, right sided numbness, right sided weakness, seizure, speech problems, tingling, tremors, weakness, others Musculoskeletal: reports: muscle pain; denies: back pain, gout, joint pain, joint swelling, muscle stiffness, neck pain, others Integumetry: denies: bruises, change in color, change in hair/nails, dryness, laceration, lesions, lumps, rash, wounds, others Allergic/Immunocompromised: denies: Difficulty Healing, Frequent Infections, Hives, Itching, others Hematologic/Lymphatic: denies: anemia, blood clots, easy bleeding, easy bruising, swollen glands, others Endocrine: denies: excessive hunger, excessive sweating, excessive thirst, excessive urination, flushing, intolerance to cold, intolerance to heat, unexpla ined weight gain, unexplained weight loss, others Psychiatric: denies: anxiety, bipolar disorder, depression, hopeless, panic disorder, schizophrenia, sleepless, suicidal, others All Other Systems: Reviewed and Negative Physical Exam General Appearance: No Apparent Distress, Obese HEENT: PERRL/EOMI, Pharyngeal Erythema (TONSILLAR SWELLING, NO EXUDATES. ), TMs Normal Neck: Full Range of Motion, Non-Tender, Normal, Normal Inspection Respiratory: Chest Non-Tender, Expiration, No Accessory Muscle Use, No Respiratory Distress, Rhonchi Cardiovascular: No Edema, No JVD, No Murmur, No Gallop, Normal Peripheral Pulses, Regular Rate/Rhythm Breast Exam: Deferred Gastrointestinal: No Organomegaly, Non Tender, No Pulsatile Mass, Normal Bowel Sounds, Soft Genitalia: Deferred Pelvic: Deferred Rectal: Deferred Extremities: No calf tenderness, Normal capillary refill, Normal inspection, Normal range of motion, Non-tender, No pedal edema Musculoskeletal : Apperance: Normal Neurologic: Alert, garage mechanic II-XII nml as Tested, No Motor Deficits, Normal Affect, Normal Mood, No Sensory Deficits Cerebellar Function: Normal Reflexes: Normal Skin: Dry, Normal Color, Warm Peripheral Pulses: 2+ carotid (R), 2+ carotid (L) Lymphatic: No Adenopathy EKG EKG : Pulse Rate (adult): 64 Sandwich: Normal Cardiac Rhythm: NSR Block: None Hypertrophy: None ST: Normal Was a procedure done? Was a procedure done?: No Differential Dx Differential Diagnosis: Bronchitis, Pneumonia, Sinusitis, Allergic Rhinitis, Otitis Media, Pharyngitis, URI X-Ray, Labs, Meds, VS Vital Signs Date Time Temp Pulse Resp B/P (MAP) Pulse Ox O2 Delivery O2 Flow Rate FiO2 06/27/25 07:53 64 06/27/25 07:31 64 06/27/25 07:18 98.2 69 18 131/59 96 98.2 Current Medications Medications (Trade) Dose Ordered Sig/Nurys Route Start Time Stop Time Status Last Admin Ceftriaxone Sodium (Rocephin) 1,000 mg ONCE ONCE IM 06/27/25 08:00 06/27/25 08:01 DC 06/27/25 08:03 Ceftriaxone Sodium (Rocephin) 1,000 mg ONCE ONCE IM 06/27/25 08:00 06/27/25 08:01 DC 06/27/25 08:03 XY CHEST TWO VIEWS ROUTINE CLINICAL HISTORY: COUGH COMPARISON: XY CHEST TWO VIEWS ROUTINE on DOS: 03/31/23, CHEST XRAY 1 VIEW on DOS: 10/11/22, CXR1 on DOS: 10/11/22, CHEST TWO VIEWS ROUTINE on DOS: 05/23/22, CHEST PORTABLE on DOS: 02/24/22 TECHNIQUE: Frontal and lateral view of the chest was obtained FINDINGS: Lines and Tubes: None Lungs: No focal consolidation. Pleura: No effusion. No pneumothorax. Cardiomediastinal contours: Unremarkable Bones: No acute osseous abnormality. IMPRESSION: No acute cardiopulmonary disease. ATED BY: MEHRDAD SILVA MD DICTATED DATE/TIME: 06/27/25809 SIGNED BY: MEHRDAD SILVA MD SIGNED DATE/TIME: 06/27/25809 CC: X-Ray, Labs, Meds, VS Comment EXTERNAL MEDICAL RECORDS REVIEWED: [NONE] INDEPENDENT HISTORIANS: [NONE] SOCIAL DETERMINANTS OF HEALTH: [NONE] LABS ORDERED: NONE REVIEWED AND INTERPRETED RESULTS: NONE PATIENT DECLINED COVID-19 TEST HERE IN THE ED. IMAGING ORDERED: XR CHEST: [INTERPRETED BY ME. NO ACUTE FINDINGS. NO PNEUMONIA. NO CONSOLIDATIONS. NO INFILTRATES. PENDING RADIOLOGIST REPORT. ] TREATMENTS ORDERED: ROCEPHIN 2G IM PROCEDURES PERFORMED: NONE CRITICAL CARE TIME: NONE I HAVE DISCUSSED THE PATIENT WITH THE ATTENDING PHYSICIAN DR. GIBSON AND HE AGREES WITH THE PATIENT'S PLAN OF CARE AND DISPOSITION. BASED ON HISTORY OF PRESENT ILLNESS, AND PHYSICAL EXAM, PATIENT WILL BE DISCHARGED HOME. DISCUSSED PLAN FOR DISCHARGE HOME WITH RX [KEFLEX AND 2% VISCOUS LIDOCAINE]. MEDICATION WARNINGS GIVEN. SHARED DECISION MAKING: PATIENT INSTRUCTED TO FOLLOW UP WITH PRIMARY CARE PROVIDER IN 1-2 DAYS FOR RE-EVALUATION OF SYMPTOMS. PATIENT VERBALIZES UNDERSTANDING TO RETURN TO ED FOR NEW OR WORSENING SYMPTOMS OR IF FOLLOW UP WITH PCP CANNOT BE OBTAINED. PATIENT FEELS COMFORTABLE GOING HOME AT THIS TIME. ALL QUESTIONS ADDRESSED AT TIME OF DISCHARGE. Images Reviewed?: Images reviewed and evaluated by me Time of 1ST Reevaluation: 08:30 Reevaluation 1ST: Improved Patient Education/Counseling: Diagnosis, Treatment, Need For Follow Up Family Education/Counseling: Diagnosis, Treatment, Need For Follow Up Medical Screening: No EMC Exist At This Time SEPSIS Sepsis Screen Date sepsis recognized/suspect: Jun 27, 2025 Time Sepsis recognized/suspect: 717 Recent Procedure: No On Antibiotic Therapy: No Respiratory Rate >20: No Heart Rate >90: No Temp<36 C (96.8 F) or >38.3 C: No SBP <90 or MAP <65 mmHG: No New Acute Mental Status Change: No Is the patient on CPAP, BIPAP,: No Physician Orders Chest Two Views Routine (06/27/25 07:27) Electrocardigram (06/27/25 07:38) Vital Signs Date Time Temp Pulse Resp B/P (MAP) Pulse Ox O2 Delivery O2 Flow Rate FiO2 06/27/25 07:53 64 06/27/25 07:31 64 06/27/25 07:18 98.2 69 18 131/59 96 98.2 Medications Medications Dose Ordered Sig/Nurys Route Start Time Stop Time Status Last Admin Dose Admin Ceftriaxone Sodium 1,000 mg ONCE ONCE IM 06/27/25 08:00 06/27/25 08:01 DC 06/27/25 08:03 Ceftriaxone Sodium 1,000 mg ONCE ONCE IM 06/27/25 08:00 06/27/25 08:01 DC 06/27/25 08:03 Departure 1 Departure Time of Disposition: 08:30 Impression: Primary Impression: Acute tonsillitis Qualified Codes: J03.90 - Acute tonsillitis, unspecified Additional Impression: Acute bronchitis Qualified Codes: J20.9 - Acute bronchitis, unspecified Disposition: HOME / SELF CARE / HOMELESS Condition: Stable Additional Instructions: FOLLOW-UP WITH PCP IN 1 TO 2 DAYS. TAKE MEDICATIONS PRESCRIBED. RETURN TO ED FOR ANY NEW OR WORSENING SYMPTOMS. e-Prescriptions Lidocaine HCl (Mouth-Throat) (Lidocaine HCl Viscous) 2 % Theodora 10 ML MT TID, #100 ML Prov: MARTHA DOSHI 06/27/25 Cephalexin Monohydrate (Cephalexin) 500 Mg Cap 1 CAP PO QID, #28 CAP Prov: MARTHA DOSHI 06/27/25 Discharged With: Self Critical Care Note Critical Care Time?: No Stability Stability form required: No Heart Score Heart Score: Heart Score Response (Comments) Value History Slightly Suspicious 0 EKG N/A 0 Age 45-64 1 Risk Factors 1 or 2 risk factors 1 Troponin N/A 0 Total 2 I personally scribed for MARTHA DOSHI ([email or web address]) on 06/27/25 at 07:53. Electronically submitted by Cornelio Salcedo ([place]). I personally scribed for MARTHA DOSHI ([email or web address]) on 06/27/25 at 08:18. Electronically submitted by Cornelio Salcedo ([place]). MARTHA DOSHI Jun 27, 2025 07:53
[2025-06-27] MEDS: cefTRIAXone SOD 1,000 MG VL IM ONE ×2 (08:03)
--- NOTE | 2025-06-27 08:12 | DVH ---
XY CHEST TWO VIEWS ROUTINE CLINICAL HISTORY: COUGH COMPARISON: XY CHEST TWO VIEWS ROUTINE on DOS: 03/31/23, CHEST XRAY 1 VIEW on DOS: 10/11/22, CXR1 on DO S: 10/11/22, CHEST TWO VIEWS ROUTINE on DOS: 05/23/22, CHEST PORTABLE on DOS: 02/24/22 TECHNIQUE: Frontal and lateral view of the chest was obtained FINDINGS: Lines and Tubes: None Lungs: No focal consolidation. Pleura: No effusion. No pneumothorax. Cardiomediastinal contours: Unremarkable Bones: No acute osseous abnormality. IMPRESSION: No acute cardiopulmonary disease.
[2025-06-27] MEDS ORDERED: CEPH500C PO (08:23)
[2025-06-27] MEDS ORDERED: LIDO2SOL26 MT (08:23)
[2025-06-27 08:24] VITALS: BP 109/45; PULSE 62; RESP 18; TEMP 97.6; O2SAT 95
--- NOTE | 2025-06-27 10:51 | ECG ---
[facility] Test Date: 2025-06-27 Test Time: 07:31:11 Pat Name: DUSTY FERRARI Department: [facility] ED Patient ID: [id number] Room: Gender: F Medical Manager: ER : 1975 Requested By: MARTHA DOSHI Order Number: [id number] Reading MD: Romaine Avalos Measurements Intervals [place] Rate: 64 P: 18 UT: 110 QRS: 23 QRSD: 106 T: 31 QT: 435 QTc: 449 Interpretive Statements Sinus rhythm Borderline short UT interval Low voltage, precordial leads Abnormal R-wave progression, early transition Electronically Signed On 06-27-2025 13:12:53 PDT by Romaine Avalos Please click the below link to view image of tracing.
== END 2025-06-27 08:34 | disposition home or self-care (01) ==
LOC: ER 07:14
DX: J03.90 Acute tonsillitis, unspecified (principal); J20.9 Acute bronchitis, unspecified; I10 Essential (primary) hypertension; E11.9 Type 2 diabetes mellitus without complications; Z90.710 Acquired absence of both cervix and uterus; Z79.899 Other long term (current) drug therapy
CPT/HCPCS: 71046; 93005; 96372; 99284; J0696

== ENCOUNTER 2025-07-12 16:42 | Emergency (ER) | payer OTHER, MEDICAID ==
[~2025-07-12] VITALS: Ht 157.5 cm; Wt 166.2 kg
[~2025-07-12 16:42] MED LIST changes: +CEPH500C PO; +LIDO2SOL26 MT
--- NOTE | 2025-07-12 17:58 | ED.PDOC ---
General HPI Comments This patient is a severely morbidly obese and wheelchair-bound 50 y.o female presents to the ED for a chief complaint of vaginal discomfort upon urinating associated with dizziness and palpations that started a couple days ago. Patient reports telling her home health nurse about her symptoms who then called the PCP. PCP ordered a UA but would not get results until Tuesday and was referred to the ED for further care. Patient denies any hematuria, burning sensation, nausea, vomiting, fever, or chills. Patient has a history of pulmonary concerns and utilizes oxygen at home. Patient appears to be in poor overall health. Chief Complaint: Urinary Time Seen by MD: 17:36 Primary Care Provider: SIDRA Reviewed notes: Nurses Notes, Medications, Allergies Allergies: Coded Allergies: NO KNOWN ALLERGIES (Unverified , 05/13/14) Home Meds Active Scripts Lidocaine HCl (Mouth-Throat) (Lidocaine HCl Viscous) 2 % Theodora, 10 ML MT TID, #100 ML Prov:MARTHA DOSHI 06/27/25 Cephalexin Monohydrate (Cephalexin) 500 Mg Cap, 1 CAP PO QID, #28 CAP Prov:MARTHA DOSHI 06/27/25 Colchicine (Colchicine) 0.6 Mg Cap, 0.6 MG PO DAILY@BREAKFAST, #30 CAP Prov:DOROTHEA TODD MD 04/11/25 Ondansetron Odt 4MG Tab (ZOFRAN PO) 4 Mg Tb, 4 MG PO TID PRN, #30 TAB prn n/v ODT TAB-DISSOLVE IN MOUTH, THEN SWALLOW Prov:JUMANA ROWLAND MD 09/15/24 Ibuprofen Micronized (Ibuprofen) 800 Mg Tab, 800 MG PO Q8HP PRN, #30 TAB prn fever or pain Prov:JUMANA ROWLAND MD 09/15/24 Acetaminophen (Tylenol Extra Strength) 500 Mg Tab, 1000 MG PO Q6HP PRN, #30 TAB prn fever or pain Prov:JUMANA ROWLAND MD 09/15/24 Aspirin (MICHELLE ASPIRIN EC LOW DOSE) 81 Mg Tab, 1 TAB PO DAILY, #30 TAB Prov:WILSON LINDSEY MD 03/20/21 Reported Medications Metformin Hydrochloride (Metformin Hcl) 1,000 Mg Tab, 1 TAB PO BID for 90 Days, #180 09/17/24 Hydrocodone-Acetaminophen (Hydrocodone Bitartrate/AC 10-325 mg) 1 Tab Tab, 1 TAB PO Q6HR PRN for PAIN for 30 Days, #120 09/17/24 Gabapentin (Gabapentin) 100 Mg Cap, 1 CAP PO TID for 60 Days, #180 09/17/24 Insulin Glargine (Basaglar Kwikpen) 100 Unit/Ml Inj, 30 UNIT SC QPM for 30 Days, #9 09/17/24 Tirzepatide (Mounjaro) 12.5 Mg/0.5 Ml Inj, 12.5 MG SC QWEEKLY for 28 Days, #2 09/17/24 Amitriptyline HCl (Amitriptyline HCl) 10 Mg Tab, 3 TAB PO HS for 30 Days, #90 09/17/24 Finerenone (Kerendia) 20 Mg Tab, 20 MG PO DAILY, TAB 09/16/24 Atorvastatin Calcium (ATORVASTATIN CALCIUM) 10 Mg Tab, 1 TAB PO DAILY, #30 TAB 5 Refills 09/16/24 Lisinopril (Lisinopril) 10 Mg Tab, 10 MG PO DAILY for 30 Days, MG 09/16/24 Levothyroxine Sodium (Levothyroxine Sodium) 175 Mcg Tab, 200 MCG PO QAM for 30 Days, MCG 04/01/23 Ergocalciferol (VITAMIN D 72901 UNIT) 50,000 [place], [address] UNIT PO QWEEKLY, CAP 03/18/21 Albuterol Sulfate (VENTOLIN MDI) 90 Mcg Ih, 90 MCG IN Q6HP PRN for SHORTNESS OF BREATH for 30 Days, MCG 02/13/20 Fluoxetine Hcl (Fluoxetine Hcl) 20 Mg Cap, 40 MG PO DAILY for 30 Days, MG 10/11/18 Information Source: Patient Mode of Arrival: Wheelchair Severity: Moderate Timing: Days Duration: Since onset Onset: Spontaneous Symptoms: Dysuria History of: None Location: Other (Urethral) associated signs and symptoms: Dysuria, Other Past Medical History PAST MEDICAL HISTORY: Anemia, Cancer, DM, High Lipids, HTN, PE, Thyroid, TIA Past Medical History (Other): Severe morbid obesity Surgical History: Hysterectomy PRIVATE CLIENT ADVISOR History: No Pertinent PRIVATE CLIENT ADVISOR History, Other Family History Family History: Reviewed,noncontributory to illness, Family hx of DM, Family hx of Cancer, Family hx of HTN, Family hx of lung jessica Family History (Other): Asthma Social History Smoker: Quit Greater Than 1 Year Alcohol: Occasionally Drugs: Denies Drug Use Lives In: Home Constitutional: denies: chills, diaphoresis, fatigue, fever, malaise, sweats, weakness, others EENTM: denies: blurred vision, double vision, ear bleeding, ear discharge, ear drainage, ear pain, ear ringing, eye pain, eye redness, hearing loss, mouth pain, mouth swelling, nasal discharge, nose bleeding, nose congestion, nose pain, photophobia, tearing, throat pain, throat swelling, voice changes, others Respiratory: denies: cough, hemoptysis, orthopnea, SOB at rest, shortness of breath, SOB with excertion, stridor, wheezing, others Cardiovascular: denies: chest pain, dizzy spells, diaphoresis, Dyspnea on exertion, edema, irregular heart beat, left arm pain, lightheadedness, palpitations, PND, syncope, others Gastrointestinal: denies: abdomen distended, abdominal pain, blood streaked bowels, constipated, diarrhea, dysphagia, difficulty swallowing, hematemesis, melena, nausea, poor appetite, poor fluid intake, rectal bleeding, rectal pain, vomiting, others Genitourinary: reports: burning, dysuria, pain; denies: abnormal vagina bleeding, dyspareunia, flank pain, frequency, hematuria, incontinence, , vagina discharge, urgency, others Neurological: denies: dizziness, fainting, headache, left sided numbness, left sided weakness, numbness, paresthesia, pre-existing deficit, right sided numbness, right sided weakness, seizure, speech problems, tingling, tremors, weakness, others Musculoskeletal: denies: back pain, gout, joint pain, joint swelling, muscle pain, muscle stiffness, neck pain, others Integumetry: denies: bruises, change in color, change in hair/nails, dryness, laceration, lesions, lumps, rash, wounds, others Allergic/Immunocompromised: denies: Difficulty Healing, Frequent Infections, Hives, Itching, others Hematologic/Lymphatic: denies: anemia, blood clots, easy bleeding, easy bruising, swollen glands, others Endocrine: denies: excessive hunger, excessive sweating, excessive thirst, excessive urination, flushing, intolerance to cold, intolerance to heat, unexplained weight gain, unexplained weight loss, others Psychiatric: denies: anxiety, bipolar disorder, depression, hopeless, panic disorder, schizophrenia, sleepless, suicidal, others All Other Systems: Reviewed and Negative Physical Exam General Appearance: Moderate Distress ([id number] distress due to dysuria.), Obese HEENT: Normal ENT Inspection, Pharynx Normal, TMs Normal Neck: Full Range of Motion, Non-Tender, Normal, Normal Inspection Respiratory: Chest Non-Tender, Lungs Clear, No Accessory Muscle Use, No Respiratory Distress, Normal Breath Sounds Cardiovascular: No Edema, No JVD, No Murmur, No Gallop, Normal Peripheral Pulses, Regular Rate/Rhythm Breast Exam: Deferred Gastrointestinal: No Organomegaly, Non Tender, No Pulsatile Mass, Normal Bowel Sounds, Soft Genitalia: Deferred Pelvic: Deferred Rectal: Deferred Extremities: No calf tenderness, Normal capillary refill, No pedal edema Neurologic: Alert, Normal Affect Cerebellar Function: NOT DONE Reflexes: NOT DONE Skin: Dry, Normal Color, Warm Lymphatic: No Adenopathy Was a procedure done? Was a procedure done?: No Differential Diagnosis Kidney stone (Female): N/A Urinary Problem (Female): Urolithiasis, UTI X-Ray, Labs, Meds, VS Vital Signs Date Time Temp Pulse Resp B/P (MAP) Pulse Ox O2 Delivery O2 Flow Rate FiO2 07/12/25 16:44 97.9 89 13 128/81 100 97.9 Lab Test 07/12/25 18:08 07/12/25 17:42 Range/Units White Blood Count 12.0 H 4.4-10.8 10^3/uL Red Blood Count 4.34 4.0-5.20 10^6/uL Hemoglobin 11.6 L 12.2-16.2 g/dL Hematocrit 35.5 L 36.0-46.0 % Mean Corpuscular Volume 81.6 80.0-100.0 fL Mean Corpuscular Hemoglobin 26.7 L 28.0-32.0 pg Mean Corpuscular Hemoglobin Concent 32.7 32.0-36.0 g/dL Red Cell Distribution Width 16.3 H 11.8-14.3 % Platelet Count 273 140-450 10^3/uL Mean Platelet Volume 8.6 6.9-10.8 fL Neutrophils (%) (Auto) 73.4 37.0-80.0 % Lymphocytes (%) (Auto) 17.7 10.0-50.0 % Monocytes (%) (Auto) 5.7 0.0-12.0 % Eosinophils (%) (Auto) 2.7 0.0-7.0 % Basophils (%) (Auto) 0.5 0.0-2.0 % Neutrophils # (Auto) 8.8 H 1.6-8.6 10 ^3/uL Lymphocytes # (Auto) 2.1 0.4-5.4 10 ^3/uL Monocytes # (Auto) 0.7 0-1.3 10 ^3/uL Eosinophils # (Auto) 0.3 0-0.8 10 ^3/uL Basophils # (Auto) 0.1 0-0.2 10 ^3/uL Nucleated Red Blood Cells 0.1 % Sodium Level 137 136-145 mmol/L Potassium Level 3.6 3.5-5.1 mmol/L Chloride Level 98 98-107 mmol/L Carbon Dioxide Level 28 20-31 mmol/L Anion Gap 11 5-15 Blood Urea Nitrogen 11 9-23 mg/dL Creatinine 0.78 0.550-1.02 mg/dL Glomerular Filtration Rate Calc 93 >90 mL/min BUN/Creatinine Ratio 14.1 10.0-20.0 Serum Glucose 124 H 74-106 mg/dL Calcium Level 9.2 8.7-10.4 mg/dL Urine Color Light-yellow Yellow Urine Clarity Clear Clear Urine pH 6.5 5.0-9.0 Urine Specific [place] 1.015 1.001-1.035 Urine Protein Negative Negative Urine Ketones Trace Negative Urine Blood Trace H Negative /uL Urine Nitrite Negative Negative Urine Bilirubin Negative Negative Urine Urobilinogen Normal Negative mg/dL Urine Leukocyte Esterase 1+ Negative /uL Urine RBC 4 0 - 4 /hpf Urine Microscopic WBC 19 H 0-5 /HPF Urine Squamous Epithelial Cells Few <5 /hpf Urine Bacteria Few H None Seen /hpf Urine Glucose Normal Normal mg/dL X-Ray, Labs, Meds, VS Comment All studies performed the ED were evaluated by me personally. Urinalysis confirmed a urinary tract infection. Patient is given a dose of antibiotics prior to discharge. Advised patient utilize medication as directed until completion. Time of 1ST Reevaluation: 19:01 Reevaluation 1ST: Improved Consultation: PCP Patient Education/Counseling: Diagnosis, Treatment, Prognosis Family Education/Counseling: Diagnosis, Treatment, No Family Present SEPSIS Sepsis Screen Date sepsis recognized/suspect: Jul 12, 2025 Time Sepsis recognized/suspect: 1643 Recent Procedure: No On Antibiotic Therapy: No Respiratory Rate >20: No Heart Rate >90: No Temp<36 C (96.8 F) or >38.3 C: No SBP <90 or MAP <65 mmHG: No New Acute Mental Status Change: No Is the patient on CPAP, BIPAP,: No Physician Orders Ceftriaxone Sodium (Rocephin) (07/12/25 19:00) Vital Signs Date Time Temp Pulse Resp B/P (MAP) Pulse Ox O2 Delivery O2 Flow Rate FiO2 07/12/25 16:44 97.9 89 13 128/81 100 97.9 Laboratory Tests Test 07/12/25 18:08 White Blood Count 12.0 10^3/uL (4.4-10.8) H Departure 1 Departure Time of Disposition: 19:02 Impression: Primary Impression: Urinary tract infection Disposition: 01 HOME / SELF CARE / HOMELESS Condition: Stable Additional Instructions: Advise utilizing medication as directed until completion. Good hydration throughout. e-Prescriptions Cephalexin (KEFLEX CAPSULE) 250 Mg Cp 1 CAP PO QID for 7 Days, #28 CAP Prov: JUNI STREET PAC 07/12/25 Discharged With: Self, Friend Critical Care Note Critical Care Time?: No Stability Stability form required: No I personally scribed for JUNI STREET PAC ([email or web address]) on 07/12/25 at 17:58. Electronically submitted by Micaela Nieves ([facility]). JUNI STRE[address] PAC Jul 12, 2025 17:58
[2025-07-12 18:28] LABS: Hematocrit 35.5 % (36.0-46.0); Hemoglobin 11.6 g/dL (12.2-16.2); Mean Corpuscular Hemoglobin 26.7 pg (28.0-32.0); Mean Corpuscular Volume 81.6 fL (80.0-100.0); Nucleated Red Blood Cells % 0.1 %
[2025-07-12 18:30] LABS: Chloride 98 mmol/L (98-107); Potassium 3.6 mmol/L (3.5-5.1); Sodium 137 mmol/L (136-145)
[2025-07-12 18:31] LABS: Anion Gap 11 (5-15); Calcium 9.2 mg/dL (8.7-10.4); Carbon Dioxide 28 mmol/L (20-31)
[2025-07-12 18:33] LABS: Urine Protein, UAD Negative (Negative)
[2025-07-12 18:36] LABS: BUN/Creatinine Ratio 14.1 (10.0-20.0); Blood Urea Nitrogen 11 mg/dL (9-23)
[2025-07-12 18:43] LABS: Glucose 124 mg/dL (74-106)
[2025-07-12] MEDS ORDERED: CEPH250C PO (19:02)
[2025-07-12 20:15] VITALS: BP 98/62; PULSE 68; RESP 18; TEMP 98.5; O2SAT 98
[2025-07-12] MEDS: cefTRIAXone SOD 1,000 MG VL IM ONE (20:26)
[2025-07-12] MEDS ORDERED: CEPH500C PO (20:59)
== END 2025-07-12 19:03 | disposition home or self-care (01) ==
LOC: ER 16:44
DX: N39.0 Urinary tract infection, site not specified (principal); F10.90 Alcohol use, unspecified, uncomplicated; E11.9 Type 2 diabetes mellitus without complications; E78.5 Hyperlipidemia, unspecified; I10 Essential (primary) hypertension; Z79.899 Other long term (current) drug therapy; Z79.85 Long-term (current) use of injectable non-insulin antidiabetic drugs; Z79.82 Long term (current) use of aspirin; Z99.3 Dependence on wheelchair; Z86.73 Personal history of transient ischemic attack (TIA), and cerebral infarction without residual deficits; Z79.890 Hormone replacement therapy; Z79.84 Long term (current) use of oral hypoglycemic drugs; Z90.710 Acquired absence of both cervix and uterus; Z85.850 Personal history of malignant neoplasm of thyroid
CPT/HCPCS: 36415; 80048; 81001; 85025; 96372; 99283; J0696

== ENCOUNTER 2025-10-26 11:59 | Emergency (ER) | payer OTHER, MEDICAID ==
[~2025-10-26] VITALS: Ht 154.9 cm; Wt 160.0 kg
[~2025-10-26 11:59] MED LIST changes: +CEPH250C PO
[2025-10-26 12:38] VITALS: BP 101/62; PULSE 73; RESP 17; TEMP 98.4; O2SAT 95
--- NOTE | 2025-10-26 15:04 | ED.PDOC ---
General HPI Comments 50 y/o F, with PMHx of anemia, cancer, DM, HLD, HTN, and PE presents to the ED for CC of dysuria. Patient states, she has been experiencing symptoms of dysuria with associated burning upon urination, back pain, and pelvic pain x1day. Patient reports, further non-related symptoms of left knee pain. Patient denies any hematuria, fever, chills, frequency, urgency, trauma, injury, or fall. Chief Complaint: Urinary Time Seen by MD: 15:00 Primary Care Provider: SIDRA Reviewed notes: Nurses Notes, Medications, Allergies Allergies: Coded Allergies: NO KNOWN ALLERGIES (Unverified , 05/13/14) Home Meds Active Scripts Ibuprofen Micronized (Ibuprofen) 600 Mg Tab, 600 MG PO TID for 10 Days, #30 TAB Prov:ANDREI DICKSON MD 10/26/25 Ciprofloxacin Hcl (Cipro) 500 Mg Tab, 1 TAB PO BID for 10 Days, #20 TAB Prov:ANDREI DICKSON MD 10/26/25 Cephalexin Monohydrate (Cephalexin) 500 Mg Cap, 1 CAP PO QID, #28 CAP Prov:JUNI STREET PAC 07/12/25 Cephalexin (KEFLEX CAPSULE) 250 Mg Cp, 1 CAP PO QID for 7 Days, #28 CAP Prov:JUNI STREET PAC 07/12/25 Lidocaine HCl (Mouth-Throat) (Lidocaine HCl Viscous) 2 % Theodora, 10 ML MT TID, #100 ML Prov:MARTHA DOSHI 06/27/25 Colchicine (Colchicine) 0.6 Mg Cap, 0.6 MG PO DAILY@BREAKFAST, #30 CAP Prov:DOROTHEA TODD MD 04/11/25 Ondansetron Odt 4MG Tab (ZOFRAN PO) 4 Mg Tb, 4 MG PO TID PRN, #30 TAB prn n/v ODT TAB-DISSOLVE IN MOUTH, THEN SWALLOW Prov:JUMANA ROWLAND MD 09/15/24 Ibuprofen Micronized (Ibuprofen) 800 Mg Tab, 800 MG PO Q8HP PRN, #30 TAB prn fever or pain Prov:JUMANA ROWLAND MD 09/15/24 Acetaminophen (Tylenol Extra Strength) 500 Mg Tab, 1000 MG PO Q6HP PRN, #30 TAB prn fever or pain Prov:JUMANA ROWLAND MD 09/15/24 Aspirin (MICHELLE ASPIRIN EC LOW DOSE) 81 Mg Tab, 1 TAB PO DAILY, #30 TAB Prov:WILSON LINDSEY MD 03/20/21 Reported Medications Metformin Hydrochloride (Metformin Hcl) 1,000 Mg Tab, 1 TAB PO BID for 90 Days, #180 09/17/24 Hydrocodone-Acetaminophen (Hydrocodone Bitartrate/AC 10-325 mg) 1 Tab Tab, 1 TAB PO Q6HR PRN for PAIN for 30 Days, #120 09/17/24 Gabapentin (Gabapentin) 100 Mg Cap, 1 CAP PO TID for 60 Days, #180 09/17/24 Insulin Glargine (Basaglar Kwikpen) 100 Unit/Ml Inj, 30 UNIT SC QPM for 30 Days, #9 09/17/24 Tirzepatide (Mounjaro) 12.5 Mg/0.5 Ml Inj, 12.5 MG SC QWEEKLY for 28 Days, #2 09/17/24 Amitriptyline HCl (Amitriptyline HCl) 10 Mg Tab, 3 TAB PO HS for 30 Days, #90 09/17/24 Finerenone (Kerendia) 20 Mg Tab, 20 MG PO DAILY, TAB 09/16/24 Atorvastatin Calcium (ATORVASTATIN CALCIUM) 10 Mg Tab, 1 TAB PO DAILY, #30 TAB 5 Refills 09/16/24 Lisinopril (Lisinopril) 10 Mg Tab, 10 MG PO DAILY for 30 Days, MG 09/16/24 Levothyroxine Sodium (Levothyroxine Sodium) 175 Mcg Tab, 200 MCG PO QAM for 30 Days, MCG 04/01/23 Ergocalciferol (VITAMIN D 15239 UNIT) 50,000 [place], [address] UNIT PO QWEEKLY, CAP 03/18/21 Albuterol Sulfate (VENTOLIN MDI) 90 Mcg Ih, 90 MCG IN Q6HP PRN for SHORTNESS OF BREATH for 30 Days, MCG 02/13/20 Fluoxetine Hcl (Fluoxetine Hcl) 20 Mg Cap, 40 MG PO DAILY for 30 Days, MG 10/11/18 Information Source: Patient Mode of Arrival: Wheelchair Severity: Moderate Inability to void: None Timing: Days Duration: Since onset Prehospital treatment: None Onset: Spontaneous History of: None Location: None Modifying factors: None associated signs and symptoms: Dysuria Past Medical History PAST MEDICAL HISTORY: Anemia, Cancer, DM, High Lipids, HTN, PE, Thyroid, TIA Surgical History: Hysterectomy FIELD TALENT QUALIFICATION SPECIALIST History: No Pertinent FIELD TALENT QUALIFICATION SPECIALIST History, Other Family History Family History: Reviewed,noncontributory to illness, Family hx of DM, Family hx of Cancer, Family hx of HTN, Family hx of lung jessica Family History (Other): Asthma Social History Smoker: Quit Greater Than 1 Year Alcohol: Occasionally Drugs: Denies Drug Use Lives In: Home Constitutional: denies: chills, diaphoresis, fatigue, fever, malaise, sweats, weakness, others EENTM: denies: blurred vision, double vision, ear bleeding, ear discharge, ear drainage, ear pain, ear ringing, eye pain, eye redness, hearing loss, mouth pain, mouth swelling, nasal discharge, nose bleeding, nose congestion, nose pain, photophobia, tearing, throat pain, throat swelling, voice changes, others Respiratory: denies: cough, hemoptysis, orthopnea, SOB at rest, shortness of breath, SOB with excertion, stridor, wheezing, others Cardiovascular: denies: chest pain, dizzy spells, diaphoresis, Dyspnea on exertion, edema, irregular heart beat, left arm pain, lightheadedness, palpitations, PND, syncope, others Gastrointestinal: denies: abdomen distended, abdominal pain, blood streaked bowels, constipated, diarrhea, dysphagia, difficulty swallowing, hematemesis, melena, nausea, poor appetite, poor fluid intake, rectal bleeding, rectal pain, vomiting, others Genitourinary: reports: burning, dysuria; denies: abnormal vagina bleeding, dyspareunia, flank pain, frequency, hematuria, incontinence, pain, , vagina discharge, urgency, others Neurological: denies: dizziness, fainting, headache, left sided numbness, left sided weakness, numbness, paresthesia, pre-existing deficit, right sided numbness, right sided weakness, seizure, speech problems, tingling, tremors, weakness, others Musculoskeletal: reports: back pain; denies: gout, joint pain, joint swelling, muscle pain, muscle stiffness, neck pain, others Integumetry: denies: bruises, change in color, change in hair/nails, dryness, laceration, lesions, lumps, rash, wounds, others Allergic/Immunocompromised: denies: Difficulty Healing, Frequent Infections, Hives, Itching, others Hematologic/Lymphatic: denies: anemia, blood clots, easy bleeding, easy bruising, swollen glands, others Endocrine: denies: excessive hunger, excessive sweating, excessive thirst, excessive urination, flushing, intolerance to cold, intolerance to heat, unexplained weight gain, unexplained weight loss, others Psychiatric: denies: anxiety, bipolar disorder, depression, hopeless, panic disorder, schizophrenia, sleepless, suicidal, others All Other Systems: Reviewed and Negative Physical Exam General Appearance: Moderate Distress, Obese HEENT: Normal ENT Inspection, PERRL/EOMI Neck: Full Range of Motion, Non-Tender, Normal, Normal Inspection Respiratory: Chest Non-Tender, Lungs Clear, No Accessory Muscle Use, No Respiratory Distress, Normal Breath Sounds Cardiovascular: No Edema, No JVD, No Murmur, No Gallop, Normal Peripheral Pulses, Regular Rate/Rhythm Breast Exam: Deferred Gastrointestinal: No Organomegaly, Non Tender, No Pulsatile Mass, Normal Bowel Sounds, Soft, Other (Morbid obesity) Genitalia: Deferred Pelvic: Deferred Rectal: Deferred Extremities: No calf tenderness, Normal capillary refill, Normal inspection, Normal range of motion, No pedal edema, Swelling (Left knee), Tender Musculoskeletal : Location: Left Extremity Location: Knee Apperance: Swelling, Limited ROM, Tenderness: Moderate Neurologic: Alert, program management manager II-XII nml as Tested, No Motor Deficits, Normal Affect, Normal Mood, No Sensory Deficits Cerebellar Function: Normal Reflexes: NOT DONE Skin: Dry, Normal Color, Warm Peripheral Pulses: 1+ carotid (R), 1+ carotid (L) Lymphatic: No Adenopathy Was a procedure done? Was a procedure done?: No Differential Diagnosis Kidney stone (Female): DJD, Musculoskeletal pain, Pyelonephritis Kidney stone (Male): N/A Penile/Scrotal: N/A Urinary Problem (Male): N/A Urinary Problem (Female): Pyelonephritis, Urolithiasis, UTI, Vaginitis X-Ray, Labs, Meds, VS Vital Signs Date Time Temp Pulse Resp B/P (MAP) Pulse Ox O2 Delivery O2 Flow Rate FiO2 10/26/25 12:38 98.4 73 17 101/62 (75) 95 98.4 10/26/25 12:02 97.3 74 18 117/59 95 97.3 Lab Test 10/26/25 14:41 Range/Units Urine Color Light-yellow Yellow Urine Clarity Hazy H Clear Urine pH 6.0 5.0-9.0 Urine Specific [place] 1.007 1.001-1.035 Urine Protein Trace H Negative Urine Ketones Negative Negative Urine Blood 2+ H Negative /uL Urine Nitrite Negative Negative Urine Bilirubin Negative Negative Urine Urobilinogen Normal Negative mg/dL Urine Leukocyte Esterase 3+ Negative /uL Urine RBC 2 0 - 4 /hpf Urine Microscopic WBC 235 H 0-5 /HPF Urine Squamous Epithelial Cells Few <5 /hpf Urine Bacteria Few H None Seen /hpf Urine Glucose Normal Normal mg/dL Current Medications Medications (Trade) Dose Ordered Sig/Nurys Route Start Time Stop Time Status Last Admin Ceftriaxone Sodium (Rocephin W Lidocaine IM) 1 gm ONCE ONCE IM 10/26/25 15:45 10/26/25 15:46 DC 10/26/25 15:33 Ketorolac Tromethamine (Toradol Injection) 60 mg ONCE ONCE IM 10/26/25 15:45 10/26/25 15:46 DC 10/26/25 16:10 X-Ray, Labs, Meds, VS Comment Course in the fast track eventful X-ray to the right knee is negative Urine shows uti patient to be discharged home Time of 1ST Reevaluation: 15:30 Reevaluation 1ST: Unchanged Time of 2ND Reevaluation: 17:30 Reevaluation 2ND: Improved Consultation: PCP Patient Education/Counseling: Diagnosis, Treatment, Prognosis, Need For Follow Up Family Education/Counseling: Diagnosis, Treatment, Prognosis, Need For Follow Up SEPSIS Sepsis Screen Date sepsis recognized/suspect: Oct 26, 2025 Time Sepsis recognized/suspect: 1204 Recent Procedure: No On Antibiotic Therapy: No Respiratory Rate >20: No Heart Rate >90: No Temp<36 C (96.8 F) or >38.3 C: No SBP <90 or MAP <65 mmHG: No New Acute Mental Status Change: No Is the patient on CPAP, BIPAP,: No Physician Orders L Knee 3v Xray (10/26/25 15:18) Splints (10/26/25 ) Vital Signs Date Time Temp Pulse Resp B/P (MAP) Pulse Ox O2 Delivery O2 Flow Rate FiO2 10/26/25 12:38 98.4 73 17 101/62 (75) 95 98.4 10/26/25 12:02 97.3 74 18 117/59 95 97.3 Medications Medications Dose Ordered Sig/Nurys Route Start Time Stop Time Status Last Admin Dose Admin Ceftriaxone Sodium 1 gm ONCE ONCE IM 10/26/25 15:45 10/26/25 15:46 DC 10/26/25 15:33 Ketorolac Tromethamine 60 mg ONCE ONCE IM 10/26/25 15:45 10/26/25 15:46 DC 10/26/25 16:10 Departure 1 Departure Time of Disposition: 17:30 Impression: Primary Impression: UTI (urinary tract infection) Qualified Codes: N30.00 - Acute cystitis without hematuria Additional Impressions: Bursitis of left knee Qualified Codes: M70.52 - Other bursitis of knee, left knee MORBID OBESITY Disposition: HOME / SELF CARE / HOMELESS Condition: Fair Additional Instructions: Push fluids and follow up with your PCP e-Prescriptions Ibuprofen Micronized (Ibuprofen) 600 Mg Tab 600 MG PO TID for 10 Days, #30 TAB Prov: ANDREI DICKSON MD 10/26/25 Ciprofloxacin Hcl (Cipro) 500 Mg Tab 1 TAB PO BID for 10 Days, #20 TAB Prov: ANDREI DICKSON MD 10/26/25 Discharged With: Self Critical Care Note Critical Care Time?: No Stability Stability form required: No Heart Score Heart Score: Heart Score Response (Comments) Value History N/A 0 EKG N/A 0 Age 45-64 1 Risk Factors >3 or Hx ASHD 2 Troponin N/A 0 Total 3 I personally scribed for ANDREI DICKSON MD ([email or web address]) on 10/26/25 at 15:04. Electronically submitted by Graciela Gage ([email or web address]). I personally scribed for ANDREI DICKSON MD ([email or web address]) on 10/26/25 at 15:22. Electronically submitted by Graciela Gage ([facility]). I personally scribed for ANDREI DICKSON MD ([email or web address]) on 10/26/25 at 15:24. Electronically submitted by Graciela Gage ([facility]). I personally scribed for ANDREI DICKSON MD ([email or web address]) on 10/26/25 at 17:29. Electronically submitted by Graciela Gage ([email or web address]). ANDREI DICKSON MD Oct 26, 2025 15:04
[2025-10-26 15:07] LABS: Urine Protein, UAD TRACE (Negative)
[2025-10-26] MEDS: cefTRIAXone SOD 1,000 MG VL ONE (15:30)
[2025-10-26] MEDS: cefTRIAXone W LIDOCAINE 1 GM IM IM ONE (15:33)
[2025-10-26] MEDS: KETOROLAC TROMETH 60MG/2ML VIAL IM ONE (16:10)
--- NOTE | 2025-10-26 17:06 | DVH ---
CLINICAL INDICATION: CHRONIC PAIN TECHNIQUE: 4 radiographic views of the left knee were obtained. COMPARISON: None FINDINGS/IMPRESSION: There is no evidence of acute fracture or dislocation. The visualized joint space is well maintained. The alignment is anatomical. There is no radiopaque foreign body. If symptoms persist, consider MRI for further evaluation.
[2025-10-26] MEDS ORDERED: CIPR-173 PO (17:33)
[2025-10-26] MEDS ORDERED: IBUP1TAB5 PO (17:34)
== END 2025-10-26 18:03 | disposition home or self-care (01) ==
LOC: ER 11:59
DX: N39.0 Urinary tract infection, site not specified (principal); M70.52 Other bursitis of knee, left knee; I10 Essential (primary) hypertension; E11.9 Type 2 diabetes mellitus without complications; E03.9 Hypothyroidism, unspecified; E66.01 Morbid (severe) obesity due to excess calories; E78.5 Hyperlipidemia, unspecified; G89.29 Other chronic pain; Z79.82 Long term (current) use of aspirin; Z79.84 Long term (current) use of oral hypoglycemic drugs; Z79.899 Other long term (current) drug therapy; Z85.850 Personal history of malignant neoplasm of thyroid; Z86.73 Personal history of transient ischemic attack (TIA), and cerebral infarction without residual deficits; Z90.710 Acquired absence of both cervix and uterus
CPT/HCPCS: 73562; 81001; 96372; 99284; J0696; J1885